=== PATIENT | female | born 1960 | race Two or more races ===

== ENCOUNTER 2020-01-08 17:02 | Outpatient (REF) | payer OTHER, SELFPAY | END 2020-01-08 17:03 | disposition home or self-care (01) | LOC: HO.LAB 17:02 | PROVIDERS: Visit Provider Internal Medicine | DX: Z20.828 Contact with and (suspected) exposure to other viral communicable diseases (principal) | CPT/HCPCS: C9803; U0003 ==

== ENCOUNTER 2020-01-17 14:04 | Outpatient (REF) | payer OTHER, SELFPAY ==
--- NOTE | 2020-01-17 | MM_ITS ---
EXAMINATION: MM SCREENING DIGITAL BREAST TOMOSYNTHESIS, BILATERAL CLINICAL INFORMATION: Screening. Asymptomatic. The lifetime risk of breast cancer based on the Tyrer-Cuzick Model is 6%. COMPARISON: Mammography: 06/19/2018, 06/12/2017, 05/10/2016 TECHNIQUE: Digital breast tomosynthesis is performed in both the craniocaudal and mediolateral oblique views along with computer-aided detection (CAD). Synthesized 2D images are generated from the tomosynthesis. FINDINGS: There are scattered areas of fibroglandular density (ACR BI-RADS breast composition Category b). Breast tissue composition borders on predominantly fatty.There is no interval mass or architectural abnormality or developing density. No abnormal calcifications. The axilla and skin contours are unremarkable. MM/MM tomosynthesis screening BI IMPRESSION: No mammographic evidence of malignancy. ASSESSMENT: BI-RADS 1: Negative RECOMMENDATION: Routine annual mammography screening. This patient's information was entered into a reminder system with a target due date for their next mammogram.
== END 2020-01-17 14:05 | disposition home or self-care (01) ==
LOC: HO.MAMMO 14:04
PROVIDERS: PCP Internal Medicine; Visit Provider Internal Medicine
DX: Z12.31 Encounter for screening mammogram for malignant neoplasm of breast (principal)
CPT/HCPCS: 77063; 77067

== ENCOUNTER → 2020-01-24 13:27 | Outpatient (BNVA) | payer OTHER, SELFPAY | PROVIDERS: PCP Internal Medicine; Visit Provider Nurse Practitioner Family | DX: Z76.89 Persons encountering health services in other specified circumstances (principal) ==

== ENCOUNTER 2020-02-14 08:30 | Outpatient (REF) | payer OTHER, SELFPAY ==
[2020-02-14 09:15] LABS: Hematocrit 39.2 % (37-47); Hemoglobin 12.2 g/dl (12.0-16.0); Mean Corpuscular HGB Conc 31.1 g/dl (31.0-35.0); Mean Corpuscular Hemoglobin 25.2 pg (27.0-33.0); Mean Corpuscular Volume 80.8 fL (80-98); Mean Platelet Volume 9.6 fL (9.4-12.3); Platelet Count 414 X10*3/uL (160-400); Red Blood Count 4.85 X10*6/uL (4.20-5.50); Red Cell Distribution Width 14.1 % (11.0-16.0); White Blood Count 7.8 X10*3/uL (4.8-10.8)
[2020-02-14 09:33] LABS: Estimated Average Glucose 237 mg/dL; Hemoglobin A1c % 9.9 %
[2020-02-14 09:43] LABS: Alanine Aminotransferase 42 U/L (0-31); Albumin Level 4.3 g/dL (3.5-5.0); Alkaline Phosphatase 70 U/L (39-117); Anion Gap 13 (12-20); Aspartate Amino Transferase 31 U/L (5-31); Bilirubin Total 0.4 mg/dL (0.0-1.0); Blood Urea Nitrogen 11 mg/dL (9-16); Carbon Dioxide 31 mmol/L (22-29); Chloride 101 mmol/L (96-108); Estimated Glomerular Filt Rate > 60; Glucose Random 200 mg/dL (60-115); Potassium 4.9 mmol/l (3.3-5.1); Sodium 140 mmol/L (135-145); Total Protein 7.7 g/dL (6.5-8.0)
== END 2020-02-14 08:31 | disposition home or self-care (01) ==
LOC: HO.LAB 08:30
PROVIDERS: PCP Internal Medicine; Visit Provider Nurse Practitioner Family
DX: E11.9 Type 2 diabetes mellitus without complications (principal); Z12.11 Encounter for screening for malignant neoplasm of colon
CPT/HCPCS: 36415; 80053; 83036; 85027

== ENCOUNTER 2020-03-24 06:23 | Day surgery (SDC) | payer OTHER, SELFPAY ==
[2020-03-18 10:34] VITALS: BMI 38.7
--- NOTE | 2020-03-20 09:26 | P.CONAN_ITS ---
Documented by User: Rosa Encinas 03/20/20 09:27 HPI - Anesthesia Eval Consult details Narrative: 59yo F for Colonoscopy PMFSH Past Medical History Medical History Diabetes mellitus GERD (gastroesophageal reflux disease) HTN (hypertension) Hyperlipidemia Migraine KELVIN on CPAP Family History Family History Father No problems noted. Mother No problems noted. Surgical History Surgical History History of History of colonoscopy Hx of endoscopy Social History Social History Alcohol intake: never Smoking Status: Never smoker Use of substances other than those prescribed or required for medical reasons: No Have you been hit, kicked, punched, or otherwise hurt by someone within the past year? If so, by whom?: No Advance Directives: No Advance Directives Information Provided: No Advance Directives on File: No Recently lost weight without trying: No Meds Allergies Allergy/AdvReac Type Severity Reaction Status Date / Time ibuprofen [IBUPROFEN] AdvReac Unknown Gastrointestinal Unverified 03/18/20 10:16 Upset Home Medications Medication Instructions Recorded Confirmed Last Taken Type aspirin 81 mg tablet,delayed 81 mg PO DAILY 01/24/20 03/18/20 Unknown History release canagliflozin 300 mg tablet 300 mg PO QAM 01/24/20 03/18/20 Unknown History glipizide 10 mg tablet 10 mg PO BID 01/24/20 03/18/20 Unknown History lisinopril 10 mg tablet 10 mg PO DAILY 01/24/20 03/18/20 Unknown History meloxicam 15 mg tablet 15 mg PO DAILY 01/24/20 03/18/20 Unknown History metformin 1,000 mg tablet 1,000 mg PO BID 01/24/20 03/18/20 Unknown History mirtazapine 15 mg tablet 15 mg PO BEDTIME 01/24/20 03/18/20 Unknown History omeprazole 40 mg capsule,delayed 40 mg PO DAILY 01/24/20 03/18/20 Unknown History release simvastatin 20 mg tablet 20 mg PO DAILY 01/24/20 03/18/20 Unknown History Exam Exam Date and Time: March 20, 2020 0926 Height,Weight and Vital Signs: Height 5 ft Weight 89.811 kg Assessment and Plan Assessment Anesthesia Assessment: Chart Reviewed Documented by User: Shila Stephens 03/24/20 07:27 [facility] Past Medical History Medical History Diabetes mellitus GERD (gastroesophageal reflux disease) HTN (hypertension) Hyperlipidemia Migraine KELVIN on CPAP Family History Family History Father No problems noted. Mother No problems noted. Family history of problems with anesthesia: No Surgical History Surgical History History of History of colonoscopy Hx of endoscopy History of Problems with Anesthesia: No Social History Social History Alcohol intake: never Smoking Status: Never smoker Use of substances other than those prescribed or required for medical reasons: No Have you been hit, kicked, punched, or otherwise hurt by someone within the past year? If so, by whom?: No Advance Directives: No Advance Directives Information Provided: No Advance Directives on File: No Recently lost weight without trying: No Meds Allergies Allergy/AdvReac Type Severity Reaction Status Date / Time ibuprofen [IBUPROFEN] AdvReac Unknown Gastrointestinal Unverified 03/18/20 10:16 Upset Home Medications Medication Instructions Recorded Confirmed Last Taken Type aspirin 81 mg tablet,delayed 81 mg PO DAILY 01/24/20 03/18/20 Unknown History release canagliflozin 300 mg tablet 300 mg PO QAM 01/24/20 03/18/20 Unknown History glipizide 10 mg tablet 10 mg PO BID 01/24/20 03/18/20 Unknown History lisinopril 10 mg tablet 10 mg PO DAILY 01/24/20 03/18/20 Unknown History meloxicam 15 mg tablet 15 mg PO DAILY 01/24/20 03/18/20 Unknown History metformin 1,000 mg tablet 1,000 mg PO BID 01/24/20 03/18/20 Unknown History mirtazapine 15 mg tablet 15 mg PO BEDTIME 01/24/20 03/18/20 Unknown History omeprazole 40 mg capsule,delayed 40 mg PO DAILY 01/24/20 03/18/20 Unknown History release simvastatin 20 mg tablet 20 mg PO DAILY 01/24/20 03/18/20 Unknown History Exam Height,Weight and Vital Signs: Vital Signs Temp Pulse Resp BP Pulse Ox 03/24/20 07:15 97.0 F 90 18 127/70 97 03/24/20 06:58 98 F 90 18 127/77 97 Pertinent Lab Results Pertinent Lab Results: Lab Results 03/24/20 Range/Units 07:01 POC Glucose 241 H (60-115) mg/dL Airway Mallampati Class: III TM Dist: >3cm Neck ROM: Full Loose/Missing/Broken Teeth: No Heart: RRR Lungs: CTAB Assessment and Plan Assessment Anesthesia Assessment: Anesthesia Plan Discussed and Chart Reviewed Final Anesthetic Review NPO: Yes ASA Class: III Final Preanesthetic Review: No Changes in Pt Med Stat, Meds/Allgs Chart Reviewed, Consent Obtained/Reviewed and Anes Risks/Benef Reviewed Patient Risk: Intermediate Procedure Risk: Low Assessment/Block/Sedation in SS: Assess/Block/Sedation-SS Anesthetic Plan Anesthetic Plan: MAC: Disposition: Standard PACU
[2020-03-24 06:58] VITALS: BP 127/77; PULSE 90; RESP 18; TEMP 36.6; O2SAT 97; BMI 16.6
[2020-03-24 07:05] LABS: Glucose, Whole Blood 241 mg/dL (60-115)
[2020-03-24 07:15] VITALS: BP 127/70; PULSE 90; RESP 18; TEMP 36.1; O2SAT 97
--- NOTE | 2020-03-24 07:25 | P.HPSUR_ITS ---
Pre-Procedural Eval Section B Chief Complaint: screening Details of Present Illness: Colon cancer screening--Last 10 yr ago No clinical changes since preprocedure visit January, Relevant Family History (Specify if Yes): No Relevant Social History: None Present Medications: see Short Stay Collaborative assessment Medical History: Significant History (KELVIN--uses Cpap for 4 days/ week for 4 hours--prob dryness; Diabetes,obesity) Allergies: Allergies Allergy/AdvReac Type Severity Reaction Status Date / Time ibuprofen [IBUPROFEN] AdvReac Unknown Gastrointestinal Unverified 03/18/20 10:16 Upset Review of Systems Sugical H&P ROS: Negative: Cardiovascular and Yes, Specify: Constitution (Weight 198), Respiratory (kelvin), Gastrointestinal (subxiphoid-chronic ) and Endocrine (diabetes) Exam Surgical H&P Exam: Normal: HEENT, Normal: Heart, Normal: Extremities and Normal: Abdomen Plan Diagnosis/Plan: Unchanged I have reviewed the history and physical and performed a pertinent physical examination on my patient. No changes have occurred unless specified. YES
[2020-03-24] MEDS: Lactated Ringers 1,000 ML 100 ML IVCONT (07:29)
[2020-03-24 07:53] VITALS: BMI 38.7
[2020-03-24 08:23] VITALS: BP 107/71; PULSE 83; RESP 16; TEMP 36.3; O2SAT 100
--- NOTE | 2020-03-24 08:25 | PM.OP ---
Brief Operative Note Date of Service: 03/24/20 Pre-op diagnosis: COLON CANCER SCREENING-NHR Post-op diagnosis: other (DIVERTICULOSIS) Procedure: COLONOSCOPY Implants: NONE Surgeon: Narcisa Paul MD Anesthesia: MAC (Cruzito GARCIA CRNA) Estimated blood loss (mL): 0 Pathology: none sent Condition: stable Disposition: PACU
[2020-03-24 08:38] VITALS: BP 138/89; PULSE 75; RESP 16; TEMP 36.2; O2SAT 99
--- NOTE | 2020-03-24 12:18 | W.PM.OPN ---
Operative Note Operative Note Date of Service: 03/24/20 Narrative: Pre-op diagnosis: COLON CANCER SCREENING-NHR Post-op diagnosis: other (DIVERTICULOSIS) Procedure: COLONOSCOPY Implants: NONE Surgeon: Narcisa Paul MD Anesthesia: MAC (Cruzito MURRAY, MELANIE) Estimated blood loss (mL): 0 FINDINGS: DORIS: Sphincter tone is adequate Scope introduced without difficulty navigated through sigmoid with scattered Diverticulosis noted. Scope continued to be advanced through transverse, ascending colon into the cecum. Appendiceal orifice was seen. Ileocecal valve was seen. No mucosal abnormalities noted on way in. PREP--was good Slow withdrawal of scope. Good rotational views--no mucosal lesions seen. Anorectal verge was clear. Patient tolerated procedure well. Pathology: none sent Condition: stable Disposition: PACU PLAN: CURRENT RECOMMENDATIONS FOR REPEAT ASYMPTOMATIC SCREENING CONTINUES @ 10 YEARS.
== END 2020-03-24 08:50 | disposition home or self-care (01) ==
PROVIDERS: PCP Internal Medicine; Visit Provider Internal Medicine Gastroenterology
PROC: 0DJD8ZZ Inspection of Lower Intestinal Tract, Via Natural or Artificial Opening Endoscopic (ICD-10-PCS; CPT 45378; principal; 2020-03-24 07:30)
DX: Z12.11 Encounter for screening for malignant neoplasm of colon (principal); K57.30 Diverticulosis of large intestine without perforation or abscess without bleeding; E11.9 Type 2 diabetes mellitus without complications; I10 Essential (primary) hypertension; Z79.82 Long term (current) use of aspirin; Z79.84 Long term (current) use of oral hypoglycemic drugs; Z79.899 Other long term (current) drug therapy
CPT/HCPCS: 45378; 82947

== ENCOUNTER 2020-04-06 11:04 | Outpatient (REF) | payer MEDICAID, SELFPAY | END 2020-04-06 11:05 | disposition home or self-care (01) | LOC: HO.SCI 11:04 | DX: Z13.89 Encounter for screening for other disorder (principal) ==

== ENCOUNTER → 2020-04-15 13:22 | Outpatient (BNVA) | payer MEDICAID, SELFPAY | PROVIDERS: PCP Internal Medicine; Visit Provider Nurse Practitioner Family ==

== ENCOUNTER 2021-04-29 11:43 | Outpatient (REF) | payer MEDICAID, OTHER, SELFPAY ==
--- NOTE | ~2021-04-29 | MM_ITS ---
EXAMINATION: MM SCREENING DIGITAL BREAST TOMOSYNTHESIS, BILATERAL CLINICAL INFORMATION: Screening. Asymptomatic. The lifetime risk of breast cancer based on the Tyrer-Cuzick Model is 6.2%. COMPARISON: Mammography: January 17, 2020 and studies dating back to May 06, 2015 TECHNIQUE: Digital breast tomosynthesis is performed in both the craniocaudal and mediolateral oblique views along with computer-aided detection (CAD). Synthesized 2D images are generated from the tomosynthesis. FINDINGS: There are scattered areas of fibroglandular density (ACR BI-RADS breast composition Category b). There are no significant masses, abnormal calcifications, or other abnormalities. MM/MM tomosynthesis screening BI IMPRESSION: There are no significant changes from prior study. ASSESSMENT: BI-RADS 1: Negative RECOMMENDATION: Routine annual mammography screening. This patient's information was entered into a reminder system with a target due date for their next mammogram.
== END 2021-04-29 11:44 | disposition home or self-care (01) ==
LOC: HO.MAMMO 11:43
PROVIDERS: PCP Internal Medicine; Visit Provider Internal Medicine
DX: Z12.31 Encounter for screening mammogram for malignant neoplasm of breast (principal)
CPT/HCPCS: 77063; 77067

== ENCOUNTER 2021-06-16 19:24 | Outpatient (REF) | payer MEDICAID, OTHER, SELFPAY ==
--- NOTE | ~2021-06-16 | MR_ITS ---
EXAMINATION: MR LUMBAR SPINE WITHOUT CONTRAST CLINICAL INFORMATION: 61-year-old with lumbago and left sciatica. COMPARISON: None TECHNIQUE: MRI of the lumbar spine was obtained using routine sequences without contrast. FINDINGS: Coronal Alignment: Mild lumbar levocurvature noted. Sagittal Alignment: Normal. Lumbosacral Junction: Normal. 5 [id number] lumbar-type vertebral bodies. Vertebral Bodies: Normal height. Disc Spaces and Endplates: Intervertebral disc space heights are well maintained throughout the lumbar spine. Disc desiccation is noted primarily between L3-L4 and L5-S1 inclusive with minor anterolateral endplate spurring at these levels. There is mild anterior marginal spondylosis at L1-L2 and T12-L1. Endplates appear intact. Spinal Canal: No abnormal developmental findings. Bone Marrow: Mild probable reactive bone marrow edema in the left L4 and L5 pedicles likely secondary to left-sided L5-S1 facet arthropathy. Otherwise, minimal type I marrow signal change along the anterosuperior corner of L1. There is a 1.7 cm faint ovoid focus of subtle T1 hypointensity on the left side of the L2 vertebral body which is only minimally hyperintense on STIR imaging. Statistically, this most likely represents a lipid-poor hemangioma but other etiologies cannot be excluded. Bone marrow signal intensity is otherwise unremarkable. Conus Medullaris: Terminates at L2. Morphology and signal is normal. Intradural Nerve Roots: Within normal limits. SPINAL LEVELS: L5-S1: Mild disc bulging is noted with slight flattening of the ventral dural sac, with ligamentum flavum thickening, moderate right and severe left-sided facet arthropathy with a left-sided facet joint effusion and active inflammatory changes at the left facet joint. There is moderate left-sided neural foraminal stenosis with facet spurring abutting the exiting left L5 nerve root. No significant central spinal canal stenosis. There is mild left and [id number] right lateral recess stenosis with slight encroachment on the traversing right S1 nerve root. L4-L5: Mild posterolateral/paravertebral disc protrusion bilaterally with mild ligamentum flavum thickening and facet arthropathy with no significant canal or neural foraminal stenosis. L3-L4: No disc bulge or herniation. Mild bilateral facet arthrosis without significant canal or neural foraminal stenosis. L2-L3: Normal disc contour. Minor facet arthrosis bilaterally. No canal or neural foraminal stenosis. L1-L2: Normal disc contour. No significant facet arthrosis, canal or neural foraminal stenosis. Paraspinal/Retroperitoneal: The paravertebral soft tissues are unremarkable. A 2.2 cm simple-appearing cyst lower pole of left kidney. A 1.3 cm simple-appearing exophytic cortical cyst lateral cortex interpolar segment of left kidney. A 1.2 cm T1 hyperintense structure arising exophytically from the lateral cortex of the upper pole of the left kidney which is not imaged on the T2-weighted images and may reflect a hemorrhagic cyst. Suggest renal ultrasound followup. MR/MR lumbar spine wo con IMPRESSION: 1. Multilevel discogenic degenerative changes and minor degrees of spondylosis, as described above. 2. Bilateral facet arthropathy at L5-S1 with disc bulging at this level and probable active inflammatory changes at the left facet joint with adjacent reactive marrow edema. [id number] lateral recess stenosis at this level, right more than left, with mild encroachment on the traversing right S1 nerve root and moderate left-sided neural foraminal stenosis, with facet spurring abutting the exiting left L5 nerve root. 3. Mild posterolateral/paravertebral disc protrusions bilaterally at L4-L5 without canal or neural foraminal stenosis. 4. Possible hemorrhagic cyst upper pole of left kidney. Other simple-appearing cysts noted in the left kidney. Suggest followup renal ultrasound.
== END 2021-06-16 19:25 | disposition home or self-care (01) ==
LOC: HO.MRI 19:24
PROVIDERS: Visit Provider Internal Medicine
DX: M54.42 Lumbago with sciatica, left side (principal); N28.1 Cyst of kidney, acquired
CPT/HCPCS: 72148

== ENCOUNTER 2022-05-05 11:36 | Outpatient (REF) | payer OTHER, SELFPAY ==
--- NOTE | ~2022-05-05 | MM_ITS ---
EXAMINATION: MM SCREENING DIGITAL BREAST TOMOSYNTHESIS, BILATERAL CLINICAL INFORMATION: Screening. Asymptomatic. The lifetime risk of breast cancer based on the Tyrer-Cuzick Model is 6.2%. COMPARISON: Mammography: April 29, 2021 and studies dating back to May 06, 2015 TECHNIQUE: Digital breast tomosynthesis is performed in both the craniocaudal and mediolateral oblique views along with computer-aided detection (CAD). Synthesized 2D images are generated from the tomosynthesis. FINDINGS: There are scattered areas of fibroglandular density (ACR BI-RADS breast composition Category b). There are no significant masses, abnormal calcifications, or other abnormalities. MM/MM tomosynthesis screening BI IMPRESSION: No significant changes from prior exam. ASSESSMENT: BI-RADS 1: Negative RECOMMENDATION: Routine annual mammography screening. This patient's information was entered into a reminder system with a target due date for their next mammogram.
== END 2022-05-05 11:37 | disposition home or self-care (01) ==
LOC: HO.MAMMO 11:36
PROVIDERS: Visit Provider Internal Medicine
DX: Z12.31 Encounter for screening mammogram for malignant neoplasm of breast (principal)
CPT/HCPCS: 77063; 77067

== ENCOUNTER 2022-10-27 15:15 | Outpatient (REF) | payer MEDICAID, SELFPAY | END 2022-10-27 15:16 | disposition home or self-care (01) | LOC: HO.MAMMO 15:15 | PROVIDERS: PCP Internal Medicine; Visit Provider Internal Medicine | DX: Z12.31 Encounter for screening mammogram for malignant neoplasm of breast (principal) | CPT/HCPCS: 77063; 77067 ==

== ENCOUNTER → 2022-10-27 16:00 | Outpatient (BNV) | payer MEDICAID, SELFPAY | PROVIDERS: PCP Internal Medicine; Visit Provider Radiology Diagnostic Radiology | DX: Z12.31 Encounter for screening mammogram for malignant neoplasm of breast (principal) | CPT/HCPCS: 77063; 77067 ==

== ENCOUNTER 2022-12-20 08:34 | Outpatient (REF) | payer MEDICAID, SELFPAY ==
--- NOTE | ~2022-12-20 | US_ITS ---
EXAMINATION: US RETROPERITONEAL LIMITED (RENAL ONLY) CLINICAL INFORMATION: Left renal cyst. COMPARISON: MRI lumbar spine 06/16/2021. X-ray abdomen KUB 01/15/2018. TECHNIQUE: Real-time imaging of the kidneys. FINDINGS: RIGHT KIDNEY: 10.8 x 3.7 x 4.1 cm (SAG x AP x TRV). The kidney is normal in size, contour, and echogenicity. Renal cortical thickness is normal. No renal calculi or hydronephrosis. 7 x 4 x 4 mm mid/lower pole exophytic cyst. LEFT KIDNEY: 11.4 x 5.2 x 5.3 cm (SAG x AP x TRV). The kidney is normal in size, contour, and echogenicity. Renal cortical thickness is normal. No renal calculi. Lower pole caliectasis without hydronephrosis. 2.8 x 1.9 x 2.2 cm lower pole cyst with septation. 1.5 x 1.2 x 1.3 cm, 2.0 x 1.4 x 1.4 cm upper pole and 1.3 x 1.1 x 1.4 cm mid pole renal cysts. Incidental note is made of 1.1 x 1.0 x 1.2 cm splenule. US/US renal BI IMPRESSION: Left lower pole caliectasis. Bilateral renal cysts as described.
== END 2022-12-20 08:35 | disposition home or self-care (01) ==
LOC: HO.US 08:34
PROVIDERS: PCP Internal Medicine; Visit Provider Internal Medicine
DX: N28.1 Cyst of kidney, acquired (principal)
CPT/HCPCS: 76775

== ENCOUNTER 2023-02-09 09:21 | Outpatient (REF) | payer MEDICAID, SELFPAY | END 2023-02-09 09:22 | disposition home or self-care (01) | LOC: HO.CHCLDS 09:21 | PROVIDERS: Visit Provider Internal Medicine | DX: E11.65 Type 2 diabetes mellitus with hyperglycemia (principal) | CPT/HCPCS: 36415; 80053; 80061; 83036 ==

== ENCOUNTER 2023-04-17 11:03 | Outpatient (REF) | payer MEDICAID, SELFPAY ==
[2023-04-17 14:53] LABS: Creatinine Urine 41.82 mg/dL; Microalbumin Urine < 5.0 mg/L
== END 2023-04-17 11:04 | disposition home or self-care (01) ==
LOC: CF 11:03
PROVIDERS: Visit Provider Internal Medicine
DX: E11.65 Type 2 diabetes mellitus with hyperglycemia (principal)
CPT/HCPCS: 82570

== ENCOUNTER 2023-10-04 08:11 | Outpatient (REF) | payer MEDICAID, SELFPAY ==
[2023-10-04 14:59] LABS: Estimated Average Glucose 194 mg/dL; Hemoglobin A1c % 8.4 % (<6.0)
[2023-10-04 15:17] LABS: Alanine Aminotransferase 55 U/L (0-31); Albumin Level 4.1 g/dL (3.5-5.0); Alkaline Phosphatase 56 U/L (39-117); Anion Gap 15 (12-20); Aspartate Amino Transferase 39 U/L (5-31); Bilirubin Total 0.4 mg/dL (0.0-1.0); Blood Urea Nitrogen 15 mg/dL (9-16); Calcium 9.9 mg/dL (8.4-10.2); Carbon Dioxide 26 mmol/L (22-29); Chloride 103 mmol/L (96-108); Cholesterol 99 mg/dL (<200); Estimated Glomerular Filt Rate > 60; Glucose Random 104 mg/dL (60-115); HDL Cholesterol 40 mg/dL (>40); LDL Cholesterol Calculated 37 mg/dL (<100); Potassium 4.6 mmol/L (3.3-5.1); Sodium 139 mmol/L (135-145); Total Protein 7.5 g/dL (6.5-8.0); Triglycerides 110 mg/dL (<150)
== END 2023-10-04 08:12 | disposition home or self-care (01) ==
LOC: HO.CHCLDS 08:11
PROVIDERS: Visit Provider Internal Medicine
DX: E11.42 Type 2 diabetes mellitus with diabetic polyneuropathy (principal)
CPT/HCPCS: 36415; 80053; 80061; 83036

== ENCOUNTER 2023-11-02 14:26 | Outpatient (REF) | payer MEDICAID, SELFPAY ==
--- NOTE | ~2023-11-02 | MM_ITS ---
EXAMINATION: MM SCREENING DIGITAL BREAST TOMOSYNTHESIS, BILATERAL CLINICAL INFORMATION: Screening. Asymptomatic. COMPARISON: Mammography: Comparison is made with available priors TECHNIQUE: Digital breast mammography with tomosynthesis is performed in both the craniocaudal and mediolateral oblique views along with computer-aided detection (CAD). FINDINGS: There are scattered areas of fibroglandular density (ACR BI-RADS breast composition Category b). There are no significant masses, abnormal calcifications, or other abnormalities. MM/MM tomosynthesis screening BI IMPRESSION: No mammographic evidence of malignancy. ASSESSMENT: BI-RADS BI-RADS 1 - Negative RECOMMENDATION: Routine annual mammography screening. 1 year F/U This examination should not preclude the clinical evaluation of a suspicious palpable abnormality. This patient's information was entered into a reminder system with a target due date for their next mammogram. Electronically signed by: Holley Harris DO 11/14/2023 05:52 PM EDT
== END 2023-11-02 14:27 | disposition home or self-care (01) ==
LOC: HO.MAMMO 14:26
PROVIDERS: PCP Internal Medicine; Visit Provider Internal Medicine
DX: Z12.31 Encounter for screening mammogram for malignant neoplasm of breast (principal)
CPT/HCPCS: 77063; 77067

== ENCOUNTER → 2023-11-02 15:30 | Outpatient (BNV) | payer MEDICAID, SELFPAY | PROVIDERS: PCP Internal Medicine; Visit Provider Internal Medicine | DX: Z12.31 Encounter for screening mammogram for malignant neoplasm of breast (principal) | CPT/HCPCS: 77063; 77067 ==

== ENCOUNTER 2024-07-15 09:42 | Outpatient (REF) | payer MEDICAID, SELFPAY ==
[2024-07-15 14:24] LABS: MANUAL DIFF FLAG NO
[2024-07-15 14:29] LABS: Basophils Percent Auto 0.4 % (0-2); Eosinophils Absolute Auto 0.2 X10*3/uL (0.0-0.4); Hematocrit 40.4 % (37.0-47.0); Hemoglobin 12.6 g/dl (12.0-16.0); Imm Gran Abs Auto 0.03 X10*3/uL (0.00-0.03); Imm Gran Pct Auto 0.4 % (0.0-0.4); Lymphocytes Absolute Auto 3.3 X10*3/uL (1.2-4.9); Mean Corpuscular HGB Conc 31.2 g/dl (31.0-35.0); Mean Corpuscular Hemoglobin 26.5 pg (27.0-33.0); Mean Corpuscular Volume 85.1 fL (80.0-98.0); Mean Platelet Volume 9.8 fL (9.4-12.3); Monocytes Absolute Auto 0.6 X10*3/uL (0.1-1.2); Monocytes Percent Auto 6.6 % (2-11); Neutrophils Absolute Auto 4.4 x10*3/uL (2.0-8.3); Neutrophils Percent Auto 51.6 % (45-73); Platelet Count 392 X10*3/uL (160-400); Red Blood Count 4.75 X10*6/uL (4.20-5.50); Red Cell Distribution Width 14.3 % (11.0-16.0); White Blood Count 8.5 X10*3/uL (4.8-10.8)
[2024-07-15 14:42] LABS: Estimated Average Glucose 278 mg/dL; Hemoglobin A1c % 11.3 % (<6.0)
[2024-07-15 14:52] LABS: Creatinine Urine 55.82 mg/dL; Microalbumin Urine < 5.0 mg/L
[2024-07-15 15:09] LABS: Alanine Aminotransferase 76 U/L (0-31); Albumin Level 4.4 g/dL (3.5-5.0); Alkaline Phosphatase 75 U/L (39-117); Anion Gap 16 (12-20); Aspartate Amino Transferase 77 U/L (5-31); Bilirubin Total 0.2 mg/dL (0.0-1.0); Blood Urea Nitrogen 13 mg/dL (9-16); Calcium 9.7 mg/dL (8.4-10.2); Carbon Dioxide 26 mmol/L (22-29); Chloride 104 mmol/L (96-108); Cholesterol 116 mg/dL (<200); Estimated Glomerular Filt Rate > 60; Glucose Random 133 mg/dL (60-115); HDL Cholesterol 42 mg/dL (>40); LDL Cholesterol Calculated 52 mg/dL (<100); Potassium 4.5 mmol/L (3.3-5.1); Sodium 141 mmol/L (135-145); Total Protein 7.7 g/dL (6.5-8.0); Triglycerides 111 mg/dL (<150)
== END 2024-07-15 09:43 | disposition home or self-care (01) ==
LOC: HO.CHCLDS 09:42
PROVIDERS: Visit Provider Internal Medicine
DX: E11.42 Type 2 diabetes mellitus with diabetic polyneuropathy (principal)
CPT/HCPCS: 36415; 80053; 80061; 82570; 83036; 85025

== ENCOUNTER 2024-10-30 08:29 | Outpatient (REF) | payer OTHER, SELFPAY ==
--- OUTSIDE RECORDS SUMMARY | 2024-10-30 09:27 | XMS_ITS | Clinical Summary ---
Author Organization [employer] Address [address] [place] [address] Care Team Providers Care Etl Analyst Name Role Phone Leandro Moura MD Primary Care Prov ider Allergies Active Allergy Reactions Criticality Noted Date Comments Lisinopril Cough 10/18/2022 Medications Blood Pressure kit 1 kit in the morning. 1 kit 023 Active TRUEplus Lancets 33G misc 100 Units by Subdermal route 3 times daily. 100 each 11 023 Active ketotifen (Zaditor) 0.025 % ophthalmic solution Administer 1 drop into both eyes 2 times daily. 10 mL 1 023 Active polyethylene glycol, PEG, 3350 (Miralax) 17 g packet MIX 1 PACKET IN 8 OUNCES OF WATER, JUICE,SODA, COFFEE, OR TEA DAILY NEEDED FOR CONSTIPATION 30 packet 3 024 Active acetaminophen (Tylenol 8 Hour) 650 MG ER tablet TAKE ONE TABLET EVERY 8 HOURS NEEDED. DO NOT BREAK, CRUSH, DISSOLVE OR CHEW 30 tablet 1 024 Active metFORMIN (Glucophage) 1000 MG tabletIndications :Type 2 diabetes mellitus with diabetic polyneuropathy, without long-term current use of insulin (CMS/[facility]) Take 1 tablet (1,000 mg) by mouth with breakfast and with evening meal. 180 tablet 3 024 Active baclofen (Lioresal) 10 MG tabletIndications :Chronic bilateral low back pain with bilateral sciatica Take 1 tablet (10 mg) by mouth 3 times daily. 270 tablet 3 024 Active DULoxetine (Cymbalta) [address] capsuleIndication s:Chronic pain syndrome Take 1 capsule (30 mg) by mouth 2 times daily. Do not crush or chew. 180 capsule 1 024 Active hydrOXYzine HCl (Atarax) 25 MG tablet Take 1 tablet (25 mg) by mouth if needed in the morning, at noon, and at bedtime for anxiety. 90 tablet 3 024 Active losartan (Cozaar) 25 MG tablet TAKE ONE TABLET AT NOON 90 tablet 3 024 Active empagliflozin (Jardiance) 25 MG Take 1 tablet (25 mg) by mouth Once per day. 30 tablet 11 024 2024 Active glucose blood (FREESTYLE LITE) test strip 1 each by Other route 3 times daily. 100 each 12 025 Active glipiZIDE (Glucotrol) 10 MG tabletIndications :Type 2 diabetes mellitus with diabetic polyneuropathy, without long-term current use of insulin (CMS/HCC) TAKE ONE TABLET TWICE DAILY BEFORE MEALS 180 tablet 1 025 Active insulin pen needle (B-D UF III MINI PEN NEEDLES) 31G x [address] [facility] USE TO INJECT lantus DAILY 100 each 11 025 Active Blood Glucose Monitoring Suppl (FreeStyle Safford Lite) w/Device kit TEST BLOOD SUGAR THREE TIMES DAILY 1 kit 025 Active gabapentin (Neurontin) 300 MG capsuleIndication s:Neuropathy TAKE ONE CAPSULE THREE TIMES DAILY 90 capsule 1 025 Active cyclobenzaprine (Flexeril) 10 MG tablet TAKE ONE TABLET THREE TIMES DAILY 30 tablet 2 025 Active Continuous Glucose Graduate Assistant Athletic Trainer (FreeStyle Sánchez 2 [place]) deviceIndications :Type 2 diabetes mellitus with diabetic polyneuropathy, without long-term current use of insulin (CMS/HCC) Scan sensor every 8 hours 1 each 025 Active Continuous Glucose Sensor (FreeStyle Sánchez 2 Sensor) miscIndications:T ype 2 diabetes mellitus with diabetic polyneuropathy, without long-term current use of insulin (CMS/HCC) 1 Units every 14 (fourteen) days. 2 each 3 025 Active Continuous Glucose Graduate Assistant Athletic Trainer (FreeStyle Sánchez 3 [place]) deviceIndications :Type 2 diabetes mellitus with diabetic polyneuropathy, without long-term current use of insulin (CMS/HCC) 1 each Once per day. Use as directed for CGM 1 each Active Continuous Glucose Sensor (FreeStyle Sánchez 3 Plus Sensor) miscIndications:T ype 2 diabetes mellitus with diabetic polyneuropathy, without long-term current use of insulin ([facility]) 1 each every 15 days. Apply 1 every 15 days as directed for CGM 2 each Active simvastatin (Zocor) 20 MG tabletIndications :Mixed hyperlipidemia TAKE ONE TABLET EVERY NIGHT AT BEDTIME 90 tablet 1 Active Trulicity 4.5 MG/0.5ML solution auto-injectorIndi cations:Type 2 diabetes mellitus with diabetic polyneuropathy ([facility]) INJECT ONE PEN (=4.5MG) SUBCUTANEOUSLY ONCE A WEEK DIRECTED 2 mL Active amitriptyline (Elavil) 50 MG tablet TAKE ONE TABLET EVERY NIGHT AT BEDTIME 30 tablet 2 Active dextran 70-hypromellose PF (Artificial Tears PF) 0.1-0.3 % ophthalmic solutionIndicatio ns:Meibomian gland disease, unspecified laterality Administer 1 drop into both eyes 4 times daily. 70 each Active Aspirin Adult Low Strength 81 MG EC tabletIndications :Essential (primary) hypertension TAKE EVERY NIGHT AT BEDTIME 90 tablet 1 Active meloxicam (Mobic) 15 MG tablet TAKE ONE TABLET DAILY WITH FOOD NEEDED FOR PAIN Active mirtazapine (Remeron) 15 MG tablet TAKE ONE TABLET EVERY NIGHT AT BEDTIME 022 Active naproxen (Naprosyn) 500 MG tablet Take 500 mg by mouth 2 times daily. Active prazosin (Minipress) 1 MG capsule TAKE ONE CAPSULE EVERY NIGHT AT BEDTIME FOR NIGHTMARES Active cetirizine (ZyrTEC) 10 MG tablet TAKE ONE TABLET EVERY DAY NEEDED ALLERGIES 90 tablet 3 Active omeprazole (PriLOSEC) [address] capsuleIndication s:Gastroesophagea l reflux disease without esophagitis TAKE ONE CAPSULE EVERY MORNING BEFORE BREAKFAST 90 capsule 3 025 Active insulin glargine (Lantus) 100 UNIT/ML pen Inject 30 Units under the skin at bedtime. 9 mL 2 025 2024 Active cetirizine (ZyrTEC) 10 MG tablet TAKE ONE TABLET BY MOUTH EVERY DAY NEEDED FOR ALLERGY 90 tablet 3 024 2024 Discontinued omeprazole (PriLOSEC) [address] capsuleIndication s:Gastroesophagea l reflux disease without esophagitis Take 1 capsule (20 mg) by mouth before breakfast. Do not crush or chew. 90 capsule 3 024 2024 Discontinued insulin glargine (Lantus) 100 UNIT/ML pen Inject 20 Units under the skin at bedtime. 6 mL 2 025 2024 Discontinued Active Problems Problem Noted Date Diagnosed Date Anxiety 07/10/2023 Assessment & Plan (07/10/2023 9:54 AM EDT): Will start on hydroxyzine, no suicidal/homicidal ideas, reviewed relaxation techniques Chronic bilateral low back pain with bilateral s ciatica 10/18/2022 Assessment & Plan (01/19/2024 3:45 PM EST): Will place referral to ortho for evaluation, previous one , er precautions were reviewed. Patient requesting the following DME: [employer]erman [employer] Bedside commode Recliner lift chair Diabetic shoes Shower Chair large Will send rx with dx of DM and chronic back pain with scialtica Assessment & Plan (08/17/2023 1:05 PM EDT): Patient requesting disability, she has not followed with ortho, printed copy and provided her with telephone number for evaluation, Assessment & Plan (02/16/2023 2:15 PM EST): Patient would benefit from Shower Chair, Commode, Walker due to her chronic pain and lower back pain, to improve her activities of daily living and decrease the risk of falling Assessment & Plan (10/18/2022 1:05 PM EDT): Patient lost follow up with ortho, she had a MRI done on 06/2021, will place new ortho referral for evaluation, no neurologic deficit. Vaccination refused by patient 10/18/2022 Muscle spasm 09/14/2022 Assessment & Plan (09/14/2022 9:49 AM EDT): Will prescribe cyclobenzaprine, told To apply ice/heat, rest, stretch, will also refer for PT Screening for colon cancer 09/14/2022 Assessment & Plan (09/14/2022 9:51 AM EDT): Done on 03/2020 good for 10 years Gastroesophageal reflux disease without esophagi tis 06/08/2022 Migraine with aura 06/08/2022 Seasonal allergies 06/08/2022 Chronic pain 06/08/2022 Cellulitis of face 04/22/2022 Assessment & Plan (04/22/2022 4:52 PM EDT): Will cover with augmentin and doxycycline, she never picked up the clindamycin rx'ed in the ED. Short course of percocet and ibuprofen prn. Future Appointments Date Time Provider Department Center 05/05/2022 10:15 AM Leandro Magallon MD [facility] Type 2 diabetes mellitus wit h diabetic polyneuropathy, without long-term current use of insulin 02/04/2022 Assessment & Plan (07/10/2024 1:06 PM EDT): On metformin, jardiacne, glipizide, lantus and trulicity, new labs ordered for guidance, encouraged to keep a low carb/no sugar diet, follow up in 3 months Assessment & Plan (04/11/2024 2:45 PM EST): Stable, no reported episode of hypoglycemia, continue low carb/no sugar diet, follow up in 3 months Assessment & Plan (01/19/2024 3:41 PM EST): Improved, continue low carb/no sugar diet, encouraged exercise, will follow up in 3 months Assessment & Plan (10/02/2023 4:33 PM EDT): Refers fbs usually on the 120's but during the day goes up to 200's, reviewed importance of diet, will increase lantus to 20 units, she will benefit from short acting insulin between meals, she wants to wait for blood test to decide. IN adittion she is on trulicity 4.5mg, metformin/glipizide/invokana Assessment & Plan (04/18/2023 7:00 AM EDT): Refers ahs been ranging from 110-170, no episode of hypoglycemia, continue current medication and diet as reccomeded, follow up in 3 month Assessment & Plan (03/20/2023 9:37 AM EST): Uncontrolled, will add Lantus 10 units, will start on CBG monitoring and will refer to DM educator, follow up in 1 month Will refer for annual eye exam Foot examination done today Assessment & Plan (10/18/2022 1:04 PM EDT): Improving, refers has been adression her diet, no side effects reported with increased dose of trulicity, no reported hypoglycemia. Will follow up in 2 months Assessment & Plan (09/14/2022 9:48 AM EDT): Uncontrolled, will increase trulicity to 4.5, she refers is being compliant with metformin, invokana and glipizide, if not improving will consider startin insulin Assessment & Plan (05/05/2022 11:35 AM EDT): Improving, reinforced low carb/no sugar diet, will order new A1c, follow up in 3 months Assessment & Plan (03/07/2022 9:58 AM EST): Highest 132, lowest in the 100;s, reinforced low carb diet, exercise as tolerated, and continue current medications, will follow up in 3 months, new lab order will be placed Primary hypertension 02/04/2022 Assessment & Plan (07/10/2024 1:10 PM EDT): Controlled, keep low sodium diet and exercise as tolerated, keep bp log, target <130/80, will follow up in 3 months Assessment & Plan (04/11/2024 2:48 PM EST): Controlled, keep low sodium diet and exercise as tolerated, follow up in 3 months, target <130/80 Assessment & Plan (10/02/2023 4:34 PM EDT): Controlled, no changes will be made, keep low sodium diet and exercise as tolerated, bp log, bp target <130/80 Assessment & Plan (08/17/2023 1:03 PM EDT): Controlled, keep bp log, watch for hypo/hypertension, keep low sodium diet, follow up in 4 months Assessment & Plan (07/10/2023 9:51 AM EDT): Controlled, continue same therapy, decrease sodium in diet, exercise as tolerated Assessment & Plan (04/18/2023 7:01 AM EDT): Controlled, no changes will be made, reinforced low sodium diet, follow up in 3 months Assessment & Plan (09/14/2022 9:48 AM EDT): Controlled, no changes will be made, reinforced low sodium diet and exercise as tolerated Assessment & Plan (05/05/2022 11:35 AM EDT): Controlled, reinforced low sodium diet and exercise as tolerated, told to get blood test previously ordered for guidance of therapy Assessment & Plan (03/29/2022 2:10 PM EST): Not at target, will increase lisinopril to 20mg, reinforced low sodium diet and exercise as tolerated, will follow up in 1 month Assessment & Plan (03/07/2022 9:59 AM EST): Controlled, no changes will be made Chronic pain syndrome 02/04/2022 Assessment & Plan (03/07/2022 9:59 AM EST): Will start on cymbalta risk vs benefits, side effects, were discussed Hyperlipidemia associated with type 2 diabetes glenn taylor 05/01/2017 Assessment & Plan (07/10/2024 1:05 PM EDT): On statin therapy, no changes will be made, new labs ordered for guidance of therapy Assessment & Plan (01/23/2023 10:48 AM EST): Simvastatin, new labs will be ordered for guidance target ldl<70 Mood disorder 05/01/2017 Morbid obesity 05/01/2017 Obstructive sleep apnea syndrome 05/01/2017 Assessment & Plan (07/10/2024 1:11 PM EDT): Will refer to sleep medicine for evaluation Type 2 diabetes mellitus 05/01/2017 Assessment & Plan (08/17/2023 1:06 PM EDT): Not at target, will increase trulicity, continue low carb/no sugar diet, follow up in 3 months Assessment & Plan (07/10/2023 9:52 AM EDT): Will increase trulicity to 3mg, continue metformin/invokana/glipizide and lantus 12 units f/up in 6-8 weeks Assessment & Plan (01/23/2023 10:48 AM EST): Patient refer has been ranging from 140-180's, reviewed with her active medications, she soul be taking metformin 100mg bid, glipizide 10mg bid, invokana 300mg, and trulicity 4.5mg, will order new labs for guidance of therapy Hypertensive disorder 05/01/2017 Encounters Date Type Department Care Team Description 10/23/2024 9:00 AM EDT Telemedicine [facility] [address] [facility] [place] [address] Leandro Moura MD Type 2 diabetes mellitus with diabetic polyneuropathy, without long-term current use of insulin ([facility]) (Primary Dx) 10/23/2024 Travel 10/21/2024 Telephone [facility] [address] [facility] [address] Leandro Moura MD chart prep 10/10/2024 Refill [facility] [address] [place] [address] Leandro Moura MD Gastroesophageal reflux disease without esophagitis 10/04/2024 Travel 09/12/2024 Refill [facility] [address] [place] [address] Leandro Moura MD Essential (primary) hypertension 09/11/2024 9:00 AM EDT Office Visit [facility] [address] [place] [address] Yenny Andrade, OD Meibomian gland disease, unspecified laterality (Primary Dx); Pseudophakia of both eyes 09/11/2024 Travel 09/09/2024 Telephone [facility] [address] [place] [address] Yenny Andrade, OD 08/16/2024 Refill [facility] [address] [place] [address] Leandro Moura MD 08/12/2024 Telephone [facility] [address] [place] [address] Leandro Moura MD Nurse Triage 08/09/2024 Refill [facility] [address] [place] [address] Leandro Moura MD Mixed hyperlipidemia; Type 2 diabetes mellitus with diabetic polyneuropathy ([facility]/HCC) from Last 3 Months Immunizations Immunization Administration Dates Next Due Influenza injectable quadriv alent IIV4 with preservative 11/08/2017 Influenza injectable quadriv alent preservative free 10/18/2022,06/10/2021,01/08/2020 Influenza, IIV3, injectable 11/20/2013 Influenza, Split (incl. nancy fied surface antigen) 10/12/2012,10/21/2011 MMR 07/06/2011 Meningococcal MCV4P ACYW-135 08/23/2018 Pneumococcal Conjugate PCV 20 03/20/2023 Pneumococcal Polysaccharide PPSV23 11/12/2009 Tdap 03/20/2023,01/06/2010 Zoster, Recombinant 08/12/2020 Social History Tobacco Use Types Packs/Day Years Used Date Smoking Tobacco: Never Passive Smoke Exposure: Never Smokeless Tobacco: Never Tobacco Cessation:Counseling Given: Not Answered Alcohol Use Standard Drinks/Week Comments Never 0 (1 standard drink = 0.6 oz pur e alcohol) Depression Answer Date Recorded Patient Health Questionnaire-9 Score 4 02/29/2024 Patient Health Questionnaire-9 Score 4 02/29/2024 Last PHQ-9: Questionnaire Data Not on file 0 02/29/2024 Housing Stability Answer Date Recorded What is your housing situation today? I have odalis kilpatrick 02/29/[address] you li ve. Do you have problems with any of the following? None of the above 02/29/2024 Food Insecurity Answer Date Recorded Within the past 12 months, y ou worried that your food would run out before you got money to buy more: Never True 02/29/2024 Within the past 12 months,th e food you bought just didn't last and you didn't have enough money to get more: Never True Transportation Answer Date Recorded In the past 12 months, has l ack of transportation kept you from medical appts, meetings, work or from getting things needed for daily living? No 02/29/2024 Utilities Answer Date Recorded In the past 12 months, has t he electric, gas, oil or water company threatened to shut off services in your home? No 02/29/2024 Depression Answer Date Recorded Patient Health Questionnaire-2 Score 2 02/29/2024 Internet Access Answer Date Recorded Internet Access Q1 Yes 02/29/2024 Internet Access Q2 Not on file 02/29/2024 Comments No Sex and Gender Information Value Date Recorded Sex Assigned at Female 12/06/2021 10:21 AM EDT Legal Sex Female 10:21 AM EDT Gender Identity Choose not to disclose 10:21 AM EDT Sexual Orientation Straight 12/06/2021 10 :21 AM EDT Last Filed Vital Signs Vital Sign Reading Time Taken Comments Blood Pressure 118/72 10/23/2024 9:19 AM EDT Pulse 72 02/29/2024 10:03 AM EST Temperature 36.8 C (98.3 F) 02/29/2024 10:03 AM EST Respiratory Rate 20 02/29/2024 10:03 AM EST Oxygen Saturation 98% 02/29/2024 10:03 AM EST Inhaled Oxygen Concentration - - Weight 87.2 kg (192 lb 3.2 oz) 02/29/2024 10:03 AM EST Height 154 cm (5' 0.63 ) 02/29/2024 10:03 AM EST Body Mass Index 36.76 02/29/2024 10:03 AM EST Plan of Treatment Upcoming Encounters Date Type Department Care Team (Late st Contact Info) Description 12/18/2024 9:30 AM EST Office Visit [facility] [address] [place] [address] Raymond, Yenny, OD [address] [place], [place] [id number] Health Maintenance Due Date Last Done Comments CT Colonography 1960 FIT DNA/Cologuard 1960 FIT 1960 FOBT 1960 Sigmoidoscopy 1960 RSV Patients and Patients Aged 60 years or older (1 - Risk 60-74 years 1-dose series) 2018 Zoster Vaccines (2 of 2) 10/07/2020 08/12/2020 Diabetes: Foot Exam 03/20/2024 03/20/2023, 03/20/2023, 03/20/2023, Additional history exists COVID-19 Vaccine ( - season) 2024 06/23/2020, 04/30/2020 Influenza Vaccine (#1) 2024 3, 06/10/2021, 01/08/2020, Additional history exists Diabetes: Hemoglobin A1C 10/15/2024 06 025, 01/15/2024, 10/04/2023, Additional history exists Alcohol/Substance Use Screening 02/28/2025 02/29/2024 Depression Screening 02/28/2025 02/29/2024, 02/28/19 25 SDOH Screening 02/28/2025 02/29/2024 HPV/Cotest 03/31/2025 03/31/2020 Pap Smear 03/31/2025 03/31/2020 Diabetes: Urine Protein Screening 07/15/2025 07/15/2024, 04/17/2023, 06/07/2021 Lipid Panel 07/15/2025 07/15/2024, 09/07, 02/09/2023, Additional history exists Tobacco Screening 10/01/2025 10/01/2024 Eye Exam 10/17/2025 10/18/2023, 10/07, 10/18/2023, Additional history exists Mammogram 11/01/2025 11/02/2023, 10/08, 04/29/2021, Additional history exists Colonoscopy 04/15/2030 04/15/2020, 04/15/2020 Colorectal Cancer Screening 04/15/2030 DTaP/Tdap/Td Vaccines (3 - Td or Tdap) 03/20/2033 03/20/2023, 01/06/2010 Meningococcal Vaccine Aged Out 08/23/2018 No brianna gael eligible based on patient's age to complete this topic Hepatitis C Screening Completed 05/11/2022, 022 Pneumococcal Vaccine: 50+ Years Completed 03/20/2023, 11/12/2009 HIB Vaccines Aged Out No longer eligi ble based on patient's age to complete this topic HPV Vaccines Aged Out No longer eligi ble based on patient's age to complete this topic Hepatitis A Vaccines Aged Out No long er eligible based on patient's age to complete this topic Hepatitis B Vaccines Aged Out No long er eligible based on patient's age to complete this topic IPV Vaccines Aged Out No longer eligi ble based on patient's age to complete this topic Meningococcal B Vaccine Aged Out No l onger eligible based on patient's age to complete this topic RSV under 20 months Aged Out No longe r eligible based on patient's age to complete this topic Rotavirus Vaccines Aged Out No longer eligible based on patient's age to complete this topic Procedures Procedure Name Priority Date/Time Associated Diagnosis Comments ALBUMIN, RANDOM URINE W/CREATININE Routine 07/15/2024 9:45 AM EDT Type 2 diabetes mellitus with diabetic polyneuropathy, without long-term current use of insulin ([facility]) HEMOGLOBIN A1C Routine 07/15/2024 9:45 AM EDT Type 2 diabetes mellitus with diabetic polyneuropathy, without long-term current use of insulin (CMS/HCC) LIPID PANEL, STANDARD Routine 07/15/2024 9:45 AM EDT Type 2 diabetes mellitus with diabetic polyneuropathy, without long-term current use of insulin (CMS/HCC) BI MAMMOGRAM SCREENING TOMOSYNTHESIS BILATERAL Routine 11/02/2023 2:40 PM EDT HEPATITIS C AB W/REFL TO HCV RNA, QN, PCR Routine 05/11/2022 8:32 AM EDT Type 2 diabetes mellitus with diabetic polyneuropathy, without long-term current use of insulin (CMS/HCC) COLONOSCOPY Routine 04/15/2020 HPV MRNA E6/E7 Routine 03/31/2020 9:39 AM EST THINPREP PAP Routine 03/31/2020 9:39 AM EST from Last 3 Months or Most Recently Relevant to Health Maintenance Results * Albumin, Random Urine W/Creatinine (07/15/2024 9:45 AM EDT) Creatinine, Urine 55.82 mg/dL [facility] Microalbumin Urine <5.0 mg/L [facility] Microalbum Creatinine Ratio Ur TNP <30 ug/mg cr [facility] Comment:Unable to calculate albumin/creatinine ratio due to lowmicroalbumin or creatinine result. Urine (Urine, Random) 07/15/2024 9:45 AM EDT 07/15/2024 2:06 PM EDT us Leandro Magallon MD LAB URINE ORDERABL ES Final Result [facility] [address] [place] [phone] * (ABNORMAL) Hemoglobin A1c (07/15/2024 9:45 AM EDT) Hemoglobin A1c 11.3(H) <6.0 % [facility] Comment:Hemoglobin A1C Refer ence Range Adults: 4.8 - 6.0 % Non diabetic: < 6.0 % Goal: < 7.0 %Additional Action Suggested: > 8.0 %Note: Hemoglobin A1c results are invalid for patients with abnormal amounts of HbF. Blood transfusions may impact the HbA1c concentration in the patient sample. Estimated Average Glucose 278 mg/dL [facility] Comment:eAG = Estimated ave rage glucose which is %A1C expressed asaverage glucose, using the formula of the X2K-[id number] Glucose study (ADAG), Diabetes Care, Vol.31,#8,Sep. 2007 Blood Venous blood specimen / Unknown 07/15/2024 9:45 AM EDT 07/15/2024 2:17 PM EDT Leandro Magallon MD LAB BLOOD ORDERABL ES Final Result [facility] [address] [place] [phone] * Lipid Panel, Standard (07/15/2024 9:45 AM EDT) Triglycerides 111 <150 mg/dL [facility] Comment:Desirable Triglyceri de: less than 150 mg/dLBorderline High Triglyceride 150-199 mg/dLHigh Triglyceride: 200-499 mg/dLVery High Triglyceride: greater than or equal to 5OO mg/dL Cholesterol 116 <200 mg/dL [facility] Comment:Desirable Cholestero l: less than 200 mg/dLBorderline High Cholesterol: 200-239 mg/dLHigh Cholesterol: greater than 239 mg/dL LDL Cholesterol Calculated 52 <100 mg/dL [facility] Comment:Desirable LDL: less than 100 mg/dLNear Optimal/Above Optimal LDL: 110- 129 mg/dLBorderline High LDL: 130-159 mg/dLHigh LDL: 160-189 mg/dLVery High LDL: greater than or equal to 190 mg/dL HDL Cholesterol 42 >40 mg/dL [facility] Comment:Desirable HDL: great er than 40 mg/dL Note: This HDL assay may give artificially low results in patients with liver disease. Blood Venous blood specimen / Unknown 07/15/2024 9:45 AM EDT 07/15/2024 2:17 PM EDT us Leandro Magallon MD LAB BLOOD ORDERABL ES Final Result [facility] [address] [place] [address] [phone] * BI Mammogram Screening Tomosynthesis Bilateral (11/02/2023 2:40 PM EDT) Anatomical Region Laterality Modality Breast Bilateral Mammography 11/02/2023 2:40 PM EDT Narrative 11/14/2023 5:55 PM EDT [address] [place] [address] Mammography Report Signed Patient: Rita Lema MR#: [id number] : 1960 Acct:[id number] Age/Sex: 63 / F ADM Date: 11/02/23 Loc: HO.MAMMO Attending Dr: Leandro Magallon MD Ordering Physician: Leandro Moura MD Res ults: 1Negative Date of Service: 11/02/23 Follow Up: 1 Year From Orig ina Mammogram Procedure(s): MM tomosynthesis screening BI Accession Number(s): [id number] cc: Leandro Moura MD EXAMINATION: MM SCREENING DIGITAL BREAST TOMOSYNTHESIS, BILATERAL CLINICAL INFORMATION: Screening. Asymptomatic. COMPARISON: Mammography: Comparison is made with available priors TECHNIQUE: Digital breast mammography with tomosynthesis is performed in both the craniocaudal and mediolateral oblique views along with computer-aided detection (CAD). FINDINGS: There are scattered areas of fibroglandular density (ACR BI-RADS breast composition Category b). There are no significant masses, abnormal calcifications, or other abnormalities. MM/MM tomosynthesis screening BI IMPRESSION: No mammographic evidence of malignancy. ASSESSMENT: BI-RADS BI-RADS 1 - Negative RECOMMENDATION: Routine annual mammography screening. 1 year F/U This examination should not preclude the clinical evaluation of a suspicious palpable abnormality. This patient's information was entered into a reminder system with a target due date for their next mammogram. Electronically signed by: Holley Harris DO 11/14/2023 05:52 PM EDT RP Dictated By: Holley Harris DO Signed By: <Electronically signed by Holley Harris DO in OV> 11/14/23 1752 DD/ 1440 TD/TT: 11/02/23 1452 Grinding Wheel Facer: Procedure Note Donotuseinterpreter, Image - 11/14/2023 [facility] [address] [place], [place] [address] Mammography Report Signed Patient: Rita Lema MR#: [id number] : 9Acct:[id number] Age/Sex: 63 / FADM Date: 11/02/23 Loc: HO.MAMMO Attending Dr: Leandro Magallon MD Ordering Physician: Leandro Moura ults: 1Negative Date of Service: 11/02/23Follow Up: 1 Year From [facility] Mammogram Procedure(s): MM tomosynthesis screening BI Accession Number(s): [id number] cc: Leandro Moura MD EXAMINATION: MM SCREENING DIGITAL BREAST TOMOSYNTHESIS, BILATERAL CLINICAL INFORMATION: Screening. Asymptomatic. COMPARISON: Mammography: Comparison is made with available priors TECHNIQUE: Digital breast mammography with tomosynthesis is performed in both the craniocaudal and mediolateral oblique views along with computer-aided detection (CAD). FINDINGS: There are scattered areas of fibroglandular density (ACR BI-RADS breast composition Category b). There are no significant masses, abnormal calcifications, or other abnormalities. MM/MM tomosynthesis screening BI IMPRESSION: No mammographic evidence of malignancy. ASSESSMENT: BI-RADS BI-RADS 1 - Negative RECOMMENDATION: Routine annual mammography screening. 1 year F/U This examination should not preclude the clinical evaluation of a suspicious palpable abnormality. This patient's information was entered into a reminder system with a target due date for their next mammogram. Electronically signed by: Holley Harris DO 11/14/2023 05:52 PM EDT Dictated By: Holley Harris DO Signed By: <Electronically signed by Holley Harris DO in OV> 11/14/23 1752 DD/ 1440 TD/TT: 11/02/23 1452 Grinding Wheel Facer: Leandro Magallon MD IMG BI PROCEDURES Edited Result - Final * Hepatitis C Antibody with Reflex to HCV, RNA, Quantitative, Real-Time PCR (05/11/2022 8:32 AM EDT) Hepatitis C Antibody NON-REACT DANAE NON-REACT DANAE Clari Index 0.02 <1.00 Clari Comment: HCV antibody was non-reactive. There is no laboratory evidence of HCV infection. In most cases, no further action is required. However, if recent HCV exposure is suspected, a test for HCV RNA (test code 00813) is suggested. For additional information please refer to http://education.Just Eat/faq/OID17p5 (This link is being provided for informational/ educational purposes only.) Blood Venous blood specimen / Unknown 05/11/2022 8:32 AM EDT 05/11/2022 8:32 AM EDT Narrative [facility] - 05/13/2022 10:22 PM EDT FASTING:YES FASTING: YES Leandro Magallon MD LAB BLOOD ORDERABL ES Final Result [facility] [address], [place] [address] [facility] [employer] [address] [place] [address] * Colonoscopy (04/15/2020) Anatomical Region Laterality Modality Endoscopy Narrative 04/15/2020 No polyps removed Leandro Magallon MD ENDOSCOPY PROCEDUR E ORDERABLES Final Result * THINPREP PAP (03/31/2020 9:39 AM EST) Clinical Information: None given [facility] COMMENT SEE COMMENT [facility] Comment: EXPLANATORY NOTE: The Pap is a screening test for cervical cancer. It is not a diagnostic test and is subject to false negative and false positive results. It is most reliable when a satisfactory sample, regularly obtained, is submitted with relevant clinical findings and history, and when the Pap result is evaluated along with historic and current clinical information. Title Search Manager : SEE COMMENT [facility] Comment: ED, CT(ASCP) CT screening location: [place] [address] Interpretation/R esult: Negative for intraepithelial lesion or malignancy. [facility] LMP: NONE [facility]IVEN [facility] Prev. BX: NONE [facility]IVEN [facility] Prev. PAP: NONE GIVEN [facility] SOURCE: None given [facility] Statement Of Adequacy: SEE COMMENT [facility] Comment: Satisfactory for evaluation. Endocervical/transformation zone component absent. 03/31/2020 9:39 AM EST [place] LAB PATHOLOGY ORDERABLES Final Result [facility] [address] * HPV mRNA E6/E7 (03/31/2020 9:39 AM EST) HPV nRNA E6/E7 Not Detected Not Detected [facility] Comment: Methodology: Blocker Polishing-Mediated Amplification This assay detects E6/E7 viral messenger RNA (mRNA) from 14 high-risk HPV types (16,18,31,33,35,39,45,51,52,56,58,59,66,68). The analytical performance characteristics of this assay have been determined by [facility]. The modifications have not been cleared or approved by the FDA. This assay has been validated pursuant to the CLIA regulations and is used for clinical purposes. For additional information, please refer to http://education.ASP64.HydroBuilder.com/EEA111f8 (This link if provided for information/ educational purposes only.) 03/31/2020 9:39 AM EST [facility] LAB BLOOD ORDERABLES Fadumo mian Result [facility] [address] from Last 3 Months or Most Recently Relevant to Health Maintenance Insurance FORMERLY [facility] OPT[employer] (HMO D-SNP) [facility] Care Teams Etl Analyst Relationship Specialty Start Date End Date Leandro Moura MD [address] [place] [address] PCP - General Internal Medicine 06/28/19
--- OUTSIDE RECORDS SUMMARY | 2024-10-30 09:27 | XMS_ITS | Encounter Summary ---
Author Organization [employer] Address [address] [place] [address] Care Team Providers Care Hearing Aid Technician Name Role Phone Leandro Moura MD Primary Care Prov ider Encounter Details Date Type Department Care Team (Late st Contact Info) Description 07/17/2023 Telephone [facility] MEDICINE [address] [place] [address] Leandro Moura MD [address] [place] [address] Social History Tobacco Use Types Packs/Day Years Used Date Smoking Tobacco: Never Passive Smoke Exposure: Never Smokeless Tobacco: Never Alcohol Use Standard Drinks/Week Comments Never 0 (1 standard drink = 0.6 oz pur e alcohol) Depression Answer Date Recorded Patient Health Questionnaire-9 Score 17 03/20/2023 Patient Health Questionnaire-9 Score 17 03/20/2023 Last PHQ-9: Questionnaire Data Not on file 0 03/20/2023 Housing Stability Answer Date Recorded What is your housing situation today? I have odalis kilpatrick 11/30/[address] you li ve. Do you have problems with any of the following? None of the above 11/30/2022 Food Insecurity Answer Date Recorded Within the past 12 months, y ou worried that your food would run out before you got money to buy more: Never True 11/30/2022 Within the past 12 months,th e food you bought just didn't last and you didn't have enough money to get more: Never True Transportation Answer Date Recorded In the past 12 months, has l ack of transportation kept you from medical appts, meetings, work or from getting things needed for daily living? No 11/30/2022 Utilities Answer Date Recorded In the past 12 months, has t he electric, gas, oil or water company threatened to shut off services in your home? No 11/30/2022 Depression Answer Date Recorded Patient Health Questionnaire-2 Score 4 03/20/2023 Comments No Sex and Gender Information Value Date Recorded Sex Assigned at Female 12/06/2021 10:21 AM EDT Legal Sex Female 10:21 AM EDT Gender Identity Choose not to disclose 10:21 AM EDT Sexual Orientation Straight 12/06/2021 10 :21 AM EDT documented as of this encounter Plan of Treatment Upcoming Encounters Date Type Department Care Team (Late st Contact Info) Description 12/18/2024 9:30 AM EST Office Visit [facility] OPTOMETRY [address] [place] [address] Raymond, Yenny, OD [address] [place] [address] documented as of this encounter Visit Diagnoses Not on filedocumented in this encounter Additional Health Concerns Assessment Noted Time PHQ-9 Depression Total Score: 17 024 8:56 AM EST documented as of this encounter Care Teams Hearing Aid Technician Relationship Specialty Start Date End Date Leandro Moura MD [address] [place] [address] PCP - General Internal Medicine 06/28/19 documented as of this encounter
--- OUTSIDE RECORDS SUMMARY | 2024-10-30 09:27 | XMS_ITS | Clinical Summary ---
Author Organization [facility] ity Address [address] [place] [address] Care Team Providers Care [employer] Crew Boss Name Role Phone Unavailable Primary Care Provider Unavailabl e Social History Tobacco Use Types Packs/Day Years Used Date Smoking Tobacco: Never Assessed Comments Unknown Sex and Gender Information Value Date Recorded Sex Assigned at Not on file Legal Sex Female 8:53 PM EST Gender Identity Not on file Sexual Orientation Not on file Plan of Treatment Health Maintenance Due Date Last Done Comments Breast Cancer Screening 1960 DTaP,Tdap,and Td Vaccines (1 - Tdap) 1977 Pneumococcal Vaccine: 50+ Ye ars (1 of 1 - PCV) 2008 Zoster Vaccines (1 of 2) 2008 Colorectal Cancer Screening: Colonoscopy 03/03/2023 Hepatitis C Screening 03/03/2023 Osteoporosis Screening (Bone Density Screening) 03/03/2023 Social Influencers of Health Screening 03/03/2023 Falls Risk Assessment 06/15/2023 Depression Screening 02/07/2024 COVID-19 Vaccine ( - 2023-2 5 season) 2024 Influenza Vaccine (#1) 2024 RSV Immunization Adult Patie nts (1 - 1-dose 75+ series) 2033 HIB Vaccines Aged Out No longer eligi [...] on patient's age to complete this topic MMR Vaccines Aged Out No longer eligi ble based on patient's age to complete this topic Meningococcal ACWY Vaccine Aged Out N o longer eligible based on patient's age to complete this topic Meningococcal B Vaccine Aged Out No l onger eligible based on patient's age to complete this topic RSV Immunization Patients Un vijaya 20 months Aged Out No longer eligible b ased on patient's age to complete this topic Varicella Vaccines Aged Out No longer eligible based on patient's age to complete this topic
--- OUTSIDE RECORDS SUMMARY | 2024-10-30 09:27 | XMS_ITS | Encounter Summary ---
Author Organization [employer] Address [address] [facility] 7t [place] [address] Care Team Providers Care Night Cleaner Name Role Phone Leandro Moura MD Primary Care Prov ider Encounter Details Date Type Department Care Team (Late Contact Info) Description 09/20/2022 Orders Only [facility] CHC MED & PEDS [address] [place], [place] [phone] Rhiannon He LPN Social History Tobacco Use Types Packs/Day Years Used Date Smoking Tobacco: Never Passive Smoke Exposure: Never Smokeless Tobacco: Never Alcohol Use Standard Drinks/Week Comments Never 0 (1 standard drink = 0.6 oz pur e alcohol) Depression Answer Date Recorded Patient Health Questionnaire-9 Score 27 05/05/2022 Depression Answer Date Recorded Patient Health Questionnaire-2 Score 6 05/05/2022 Comments Unknown Sex and Gender Information Value [...] Description 12/18/2024 9:30 AM EST Office Visit [facility] OPTOMETRY [address] [place], [place] [phone] Yenny Andrade, OD [address] [place] [address] documented as of this encounter Visit Diagnoses Not on filedocumented in this encounter Additional Health Concerns Assessment Noted Time PHQ-9 Depression Total Score: 27 023 9:58 AM EDT documented as of this encounter Care Teams Night Cleaner Relationship Specialty Start Date End Date Leandro Moura MD [address] [place] [address] PCP - General Internal Medicine 06/28/19 documented as of this encounter
--- OUTSIDE RECORDS SUMMARY | 2024-10-30 09:27 | XMS_ITS | Encounter Summary ---
Author Organization [employer] Address [address] [facility] 7t [place] [address] Care Team Providers Care Table Worker Name Role Phone Leandro Moura MD Primary Care Prov ider Reason for Visit * Reason Onset Date Comments [facility] 07/18/2023 Encounter Details Date Type Department Care Team ([facility] st Contact Info) Description 07/18/2023 Telephone [facility] MEDICINE [address] [place] [address] Leandro Moura MD [address] [place] [address] [facility] Social History Tobacco Use Types Packs/Day Years [...] AM EDT documented as of this encounter Miscellaneous Notes * Telephone Encounter - Lise Hernandez - 07/18/2023 11:01 AM EDT Tc from pt requesting uber for appt today, pt at daughter address; [address] [place] [address] Phone confirmed documented in this encounter Plan of Treatment Upcoming Encounters Date Type Department Care Team (Late st Contact Info) Description 12/18/2024 9:30 AM EST Office Visit [facility] OPTOMETRY [address] [place] [address] Raymond, Yenny, OD [address] [facility] [place] [address] documented as of this encounter Visit Diagnoses Not on filedocumented in this encounter Additional Health Concerns Assessment Noted Time PHQ-9 Depression Total Score: 17 024 8:56 AM EST documented as of this encounter Care Teams Table Worker Relationship Specialty Start Date End Date Leandro Moura MD [address] [place] [address] PCP - General Internal Medicine 06/28/19 documented as of this encounter
--- OUTSIDE RECORDS SUMMARY | 2024-10-30 09:27 | XMS_ITS | Encounter Summary ---
Author Organization [facility] Address [address] [facility] [address] [place] [address] Encounters * CPT with Elvis Obregon at [employer] on 2024-08-12 Reports having elevated BS x 1 month. Reports fasting BS today was 285mg/dL. Reports drinking coffee with milk and now 310mg/dL. Reports having dry mouth and increased urination. No LALA sx. No vomiting. Pt unable to come into our [facility]. Agrees to [facility] referral for evaluation. Reviewed home care advise, ER precautions and reasons to call back. Confirmed demographics and allergies. { reasonForRequest : urinary symptoms, elevated blood sugars , patientRepor ts : , denies :[], chiefComplaints : Urinary Symptoms, Diabetes Related , pmh : Diabetes Mellitus Type 2, Hypertension, Gastroesophageal Reflux Disease (GERD), Migraine, Sleep Apnea, Anxiety Disorder , allergies : Lismario alberto cook , otherAllergies :null, painAssessment : , visitOutco me : , additionalComments : HPI reviewed } Dispatched to the call address for the female with elevated blood sugars. Pt states for the last couple of weeks she has had blood sugars in the high 200s to mid 300s. She states normally her sugar is in the 120s. She advises she has not changed her diet and avoids rice/bread/pasta and has been eating salads, fruits (oranges, apples and watermelon) and beans. She has not yet spoken to her doctor about this issue. She endorses a 30lb weight increase over the past year. She is not sure when her last A1C was checked and does not know what the value was. She denies chest pain, diff breathing/sob,fevers, n/v/d, cough, abd pain, dizziness or any other symptoms at this time. She has been drinkingplenty of water. She advises she had coffee with cream only and a yam for breakfast. She is currently not at home and all her medications come in bubble packs and is not certain of her medications/doses but knows she takes 20 units of Lantus at night. Pt was found sitting in chair, CAOx4, airway open and patent, breathing non labored, able to speak in full sentences, -JVD, -HEENT, skin PWD with good turgor, abd soft non tender/distended, pupils PEERL, mucous membranes pink and moist, +CMSx4, -edema/swelling, afebrile, lungs CTA, -CVA tenderness,UA + for ketones and glucose. Diabetic issue. Pt was assessed. Language line used (Pt primarily Brazilian speaking only). [facility] advised UA and BMP. Blood draw via 23g butterfly in right hand, BMP, UA. [facility] consulted with results. Pt advised to increase her Lantus to 22 units, reduce fruit intake and follow up with PCP. Red flags discussed. ALL times are approx. IV_(FLUIDS_AND/OR_MEDICATION), MEDICATION_IM, ORAL_MEDICATION, EKG, POC_BLOODWORK, GLUCOSE Written by Elvis Obregon on 2024-08-12
--- OUTSIDE RECORDS SUMMARY | 2024-10-30 09:27 | XMS_ITS | Encounter Summary ---
Author Organization [employer] Address [address] [facility] 7t [place] [address] Care Team Providers Care Meter Technician Name Role Phone Leandro Moura MD Primary Care Prov ider Reason for Visit * Reason Onset Date Comments Pre OP 2023 Encounter Details Date Type Department Care Team ([facility] st Contact Info) Description 2023 Telephone [facility] CHC MED & PEDS [address] [place] [address] Leandro Moura MD [address] [place] [address] Pre OP Social History Tobacco Use Types Packs/Day Years [...] encounter Miscellaneous Notes * Telephone Encounter - Wing Evan RN - 06/15/2023 10:56 AM EDT Tc to [place], confirmed operation information and scheduled pt with Dr. Braswell for 06/27 at 9:15 am. [place] verbalized understanding and agreement with plan, stated she would call pt about pre-op. * Telephone Encounter - Gabi Joshua - 2023 9:49 AM EDT Date of Surgery: 07/20/23 Surgical procedure being done: cataract surgery right eye Type of anesthesia: max Lab needed: no EKG: no Surgeon's name: Trae rajput Facility name: [facility] Surgeon's office number: [phone] ext [facility] Surgeon's office fax number: [phone] Contact name (person you spoke with): [place] Last office note from surgeon requested: yes documented in this encounter Plan of Treatment Upcoming Encounters Date Type Department Care Team (Late st Contact Info) Description 12/18/2024 9:30 AM EST Office Visit [facility] OPTOMETRY [address] [place], [place] [phone] Raymond, Yenny, OD [address] [place], [place] [phone] documented as of this encounter Visit Diagnoses Not on filedocumented in this encounter Additional Health Concerns Assessment Noted Time PHQ-9 Depression Total Score: 17 024 8:56 AM EST documented as of this encounter Care Teams Meter Technician Relationship Specialty Start Date End Date Leandro Moura MD [address] [place] [address] PCP - General Internal Medicine 06/28/19 documented as of this encounter
--- OUTSIDE RECORDS SUMMARY | 2024-10-30 09:27 | XMS_ITS | Encounter Summary ---
Author Organization [employer] Address [address] [facility] 7t [place] [address] Care Team Providers Care Corporate Tax Manager Name Role Phone Leandro Moura MD Primary Care Prov ider Reason for Visit * Reason Comments Med Refill Encounter Details Date Type Department Care Team ([facility] st Contact Info) Description 10/27/2023 Refill [facility] CHC MED & PEDS [address] [place], [place] [phone] Leandro Moura MD [address] [place] [address] Social History Tobacco Use Types Packs/Day Years [...] Description 12/18/2024 9:30 AM EST Office Visit [facility] OPTOMETRY [address] [place] [address] Raymond, Yenny, OD [address] [place] [address] documented as of this encounter Visit Diagnoses Not on filedocumented in this encounter Additional Health Concerns Assessment Noted Time PHQ-9 Depression Total Score: 17 024 8:56 AM EST documented as of this encounter Care Teams Corporate Tax Manager Relationship Specialty Start Date End Date Leandro Moura MD [address] [place] [address] PCP - General Internal Medicine 06/28/19 documented as of this encounter
--- OUTSIDE RECORDS SUMMARY | 2024-10-30 09:27 | XMS_ITS | Encounter Summary ---
Author Organization [employer] Address [address] [facility] 7t [place] [address] Care Team Providers Care School Psychometrist Name Role Phone Leandro Moura MD Primary Care Prov ider Encounter Details Date Type Department Care Team (Late Contact Info) Description 06/27/[address] [facility] CHC MED & PEDS [address] [place], [place] [phone] Loida Carey LPN Social History Tobacco Use Types Packs/Day [...] Orientation Straight 12/06/2021 10 :21 AM EDT COVID-19 Exposure Response Date Recorded In the last 10 days, have yo u been in contact with someone who was confirmed or suspected to have Coronavirus/COVID-19? No / Unsure 06/28/2022 8:55 AM EDT documented as of this encounter Plan of Treatment Upcoming Encounters Date Type Department Care Team (Late Contact Info) Description 12/18/2024 9:30 AM EST Office [facility] OPTOMETRY [address] [place], [place] [phone] Raymond, Megan, OD [address] [facility] [place] [address] documented as of this encounter Visit Diagnoses Not on filedocumented in this encounter Additional Health Concerns Assessment Noted Time PHQ-9 Depression Total Score: 27 023 9:58 AM EDT documented as of this encounter Care Teams School Psychometrist Relationship Specialty Start Date End Date Leandro Moura MD [address] [place] [address] PCP - General Internal Medicine 06/28/19 documented as of this encounter
--- OUTSIDE RECORDS SUMMARY | 2024-10-30 09:27 | XMS_ITS | Encounter Summary ---
Author Organization [employer] Address [address] [facility] 7t [place] [address] Care Team Providers Care Drafter Electronic Name Role Phone Leandro Moura MD Primary Care Prov ider Reason for Visit * Reason Comments Med Refill Encounter Details Date Type Department Care Team ([facility] st Contact Info) Description 08/18/2023 Refill [facility] CHC MED & PEDS [address] [place], [place] [phone] Leandro Moura MD [address] [place] [address] Mixed hyperlipidemia Social History Tobacco Use Types Packs/Day Years [...] Description 12/18/2024 9:30 AM EST Office Visit [facility] OPTOMETRY [address] [place] [address] Raymond, Yenny, OD [address] [place] [address] documented as of this encounter Visit Diagnoses Diagnosis Mixed hyperlipidemia documented in this encounter Additional Health Concerns Assessment Noted Time PHQ-9 Depression Total Score: 17 024 8:56 AM EST documented as of this encounter Care Teams Drafter Electronic Relationship Specialty Start Date End Date Leandro Moura MD [address] [place] [address] PCP - General Internal Medicine 06/28/19 documented as of this encounter
--- OUTSIDE RECORDS SUMMARY | 2024-10-30 09:27 | XMS_ITS | Continuity of Care Document ---
Author Name Elvis Obregon Address [address] [place] [address] Organization Unknown Address [address] [place] [address] Medications No known medications Problems No known problems
--- OUTSIDE RECORDS SUMMARY | 2024-10-30 09:27 | XMS_ITS | Encounter Summary ---
Author Organization [employer] Address 75 [facility] 7t [place] [address] Care Team Providers Care Compounder Helper Name Role Phone Leandro Moura MD Primary Care Prov ider Reason for Visit * Reason Comments Med Refill Encounter Details Date Type Department Care Team ([facility] st Contact Info) Description 10/30/2023 Refill [facility] MED & PEDS 505 [place], [place] [phone] Leandro Moura MD 505 [place] [address] Social History Tobacco Use Types Packs/Day Years [...] Description 12/18/2024 9:30 AM EST Office Visit [facility] OPTOMETRY [address] [place] [address] Raymond, Yenny, OD [address] [place] [address] documented as of this encounter Visit Diagnoses Not on filedocumented in this encounter Additional Health Concerns Assessment Noted Time PHQ-9 Depression Total Score: 17 024 8:56 AM EST documented as of this encounter Care Teams Compounder Helper Relationship Specialty Start Date End Date Leandro Moura MD 505 [place] [address] PCP - General Internal Medicine 06/28/19 documented as of this encounter
--- OUTSIDE RECORDS SUMMARY | 2024-10-30 09:27 | XMS_ITS | Encounter Summary ---
Author Organization [employer] Address 75 [facility] 7t [place] [address] Care Team Providers Care Career Technical Education Teacher Name Role Phone Leandro Moura MD Primary Care Prov ider Reason for Visit * Reason Onset Date Comments Referral 07/14/2023 Encounter Details Date Type Department Care Team ([facility] st Contact Info) Description 07/14/2023 Telephone [facility] MEDICINE 230 [place] [address] Leandro Moura MD 505 [place] [address] Referral Social History Tobacco Use Types Packs/Day Years [...] encounter Miscellaneous Notes * Telephone Encounter - Kobe Apple - 07/14/2023 3:23 PM EDT Tc from patient calling to request a new referral for PT states was told previous one is documented in this encounter Plan of Treatment Upcoming Encounters Date Type Department Care Team (Late st Contact Info) Description 12/18/2024 9:30 AM EST Office Visit [facility] OPTOMETRY [address] [place] [address] Yenny Andrade, OD 230 [facility] [place] [address] documented as of this encounter Visit Diagnoses Not on filedocumented in this encounter Additional Health Concerns Assessment Noted Time PHQ-9 Depression Total Score: 17 024 8:56 AM EST documented as of this encounter Care Teams Career Technical Education Teacher Relationship Specialty Start Date End Date Leandro Moura MD 505 [place] [address] PCP - General Internal Medicine 06/28/19 documented as of this encounter
--- OUTSIDE RECORDS SUMMARY | 2024-10-30 09:27 | XMS_ITS | Encounter Summary ---
Author Organization [facility] Address [address] [facility] [address] [place] [address] Encounters * CPT with Elvis Obregon at [employer] on 2024-08-15 Spoke to HOLDEN Le from PCP office, due to physicians being out on vacation they cannot get patientin for an in person evaluation- they would appreciate a follow up visit tomorrow, and will reach out to patient to set up a visit for med reconcilliation, { reasonForRequest : follow up needed for pt, elevated blood sugar , patien tReports : , denies :[], chiefComplaints : Abnormal Lab Value, Diabetes Related , pmh : Diabetes Mellitus Type 2, Hypertension, Gastroesophageal Reflux Disease (GERD), Migraine, Sleep Apnea, Anxiety Disorder , allergies :&qu ot;Lisinopril , otherAllergies :null, painAssessment : , vi sitOutcome : , additionalComments : C Remarks\nPat is hyperglycemic- eating fruit/ gaining weight- states 30 lbs in 1 year- needs dietary consult- BS was 319 at our visit I increased her lantus to 22 units qhs up from 20 units- she did not know the doses of her other meds and our visit was not at home. Can you pls ask CP to reach out to pcp re seeing patient jada-further medication adjustment per pcp since I did not know the dose of her other medications I could not adjust properly. If pcp cannot see her this week we should reevaluate/ re peat bmp in 3 days"} Patient alert and oriented seated at table. PCP office requested repeat labs to rule out DKA. Patient complains of intermittent headache, and increased urination in the last week. Patient denies other pain or complaints, denies chest pain, difficulty breathing, dysuria, abnormal BM or decreased appetite. Patient pink warm dry, secondary exam unremarkable, full sentences negative increase work of breathing, abdomen soft nontender extremities unremarkable no edema noted Tests administered as ordered. C advises patient to follow up with PCP in one week and push hydration with non-sugar beverage. Red flags, patient education discussed. All information through medical claims representative on telephone. IV_(FLUIDS_AND/OR_MEDICATION), MEDICATION_IM, POC_BLOODWORK, GLUCOSE Written by Elvis Obregon on 2024-08-15
--- OUTSIDE RECORDS SUMMARY | 2024-10-30 09:27 | XMS_ITS | Encounter Summary ---
Author Organization [employer] Address 75 [facility] 7t [place] [address] Care Team Providers Care Wig Stylist Name Role Phone Leandro Moura MD Primary Care Prov ider Encounter Details Date Type Department Care Team ([facility] Contact Info) Description 09/14/2022 Orders Only [facility] CHC MED & PEDS 505 [place], [place] [phone] Leandro Moura MD 505 [place] [address] Social History Tobacco Use Types Packs/Day Years [...] Description 12/18/2024 9:30 AM EST Office Visit [facility] OPTOMETRY [address] [place], [place] [phone] Raymond, Yneny, OD [address] [place] [address] documented as of this encounter Procedures Procedure Name Priority Date/Time Associated Diagnosis Comments HM COLONOSCOPY Routine 04/15/2020 COLONOSCOPY Routine 04/15/2020 documented in this encounter Results * Hm Colonoscopy (04/15/2020) Colonoscopy Normal Normal Leandro Magallon MD HEALTH MAINTENANCE Final Result * Colonoscopy (04/15/2020) Anatomical Region Laterality Modality Endoscopy Narrative 04/15/2020 No polyps removed us Leandro Magallon MD ENDOSCOPY PROCEDUR E ORDERABLES Final Result documented in this encounter Visit Diagnoses Not on filedocumented in this encounter Additional Health Concerns Assessment Noted Time PHQ-9 Depression Total Score: 27 05/05/ 023 9:58 AM EDT documented as of this encounter Care Teams Wig Stylist Relationship Specialty Start Date End Date Leandro Moura MD [address] [place] [address] PCP - General Internal Medicine 06/28/19 documented as of this encounter
--- OUTSIDE RECORDS SUMMARY | 2024-10-30 09:27 | XMS_ITS | Encounter Summary ---
Author Organization [employer] Address [address] [facility] 7t [place] [address] Care Team Providers Care Incident Engineer Name Role Phone Leandro Moura MD Primary Care Prov ider Encounter Details Date Type Department Care Team (Late st Contact Info) Description 07/22/2024 Telephone [facility] MEDICINE 230 [place] [address] Leandro Moura MD 505 [place] [address] Social History Tobacco Use Types Packs/Day Years [...] Description 12/18/2024 9:30 AM EST Office Visit [facility] OPTOMETRY 267 [place] [address] Raymond, Yenny, OD 230 [place] [address] documented as of this encounter Visit Diagnoses Not on filedocumented in this encounter Additional Health Concerns Assessment Noted Time PHQ-9 Depression Total Score: 4 02/28/19 25 10:04 AM EST documented as of this encounter Care Teams Incident Engineer Relationship Specialty Start Date End Date Leandro Moura MD 505 [place] [address] PCP - General Internal Medicine 06/28/19 documented as of this encounter
--- OUTSIDE RECORDS SUMMARY | 2024-10-30 09:27 | XMS_ITS | Encounter Summary ---
Author Organization [employer] Address [address] [facility] [address] 7t [place] [address] Care Team Providers Care Explosive Ordnance Disposal Technician Name Role Phone Leandro Moura MD Primary Care Prov ider Encounter Details Date Type Department Care Team (Late st Contact Info) Description 07/17/2023 Telephone [facility] MEDICINE 230 [place] [address] Leandro Moura MD 505 [place] [address] Social History Tobacco Use Types Packs/Day Years [...] encounter Miscellaneous Notes * Telephone Encounter - Nicolas Cantrell RN - 07/28/2023 9:28 AM EDT TC placed, spoke w/ pt, who is still waiting on insurance. Pt continues to use CGM with no difficulty or concerns. RN advised pt to contact our office once issue with insurance is resolved. Pt verbalized understanding and agreed to plan. Will continue to track. * Telephone Encounter - Estelle Bradford RN - 07/20/2023 1:50 PM EDT Pt was to f/u with RN for CGM f/u as based on readings will determine if pt will be cleared. Pt is dealing with insurance and once insurance is once again active we can r/s [place] f/u CGM and go from there. * Telephone Encounter - Lise Hernandez - 07/17/2023 12:46 PM EDT Tc from pt regarding clearance for cataract surgery. Pt stated her blood sugar levels have been controlled for a week now and was advised to contact PCP in order to get clearance for cataract surgery. Pt in surgery office right now. documented in this encounter Plan of Treatment Upcoming Encounters Date Type Department Care Team (Late st Contact Info) Description 12/18/2024 9:30 AM EST Office Visit [facility] OPTOMETRY [address] [place] [address] Yenny Andrade, OD [address] [place] [address] documented as of this encounter Visit Diagnoses Not on filedocumented in this encounter Additional Health Concerns Assessment Noted Time PHQ-9 Depression Total Score: 17 024 8:56 AM EST documented as of this encounter Care Teams Explosive Ordnance Disposal Technician Relationship Specialty Start Date End Date Leandro Moura MD [address] [place] [address] PCP - General Internal Medicine 06/28/19 documented as of this encounter
--- OUTSIDE RECORDS SUMMARY | 2024-10-30 09:27 | XMS_ITS | Encounter Summary ---
Author Organization [employer] Address 75 [facility] 7t [place] [address] Care Team Providers Care Ten Pin Bowling Centre Manager Name Role Phone Leandro Moura MD Primary Care Prov ider Reason for Visit * Reason Comments Med Refill Encounter Details Date Type Department Care Team (Late st Contact Info) Description 07/19/[address] [facility] MEDICINE 230 [place] [address] Leandro Moura MD 505 [place] [address] Gastroesophageal reflux disease without esophagitis Social History Tobacco Use Types Packs/Day Years [...] encounter Miscellaneous Notes * Telephone Encounter - Elizabeth Ruiz - 08/02/2023 3:51 PM EDT Contacted patient, explained that she does not meet the disqualification for her [place] Security Disability Exception. She needs t have a physical, developmental or mental impairment lasting or expected to last 12mths. Her current medical conditions do not disqualify her. Patient can discuss further with provider and seek out additional services to help with process if she would like. Patient understood. documented in this encounter Plan of Treatment Upcoming Encounters Date Type Department Care Team (Late st Contact Info) Description 12/18/2024 9:30 AM EST Office Visit [facility] OPTOMETRY [address] [place] [address] Yenny Andrade, OD 230 [facility] [place] [address] documented as of this encounter Visit Diagnoses Diagnosis Gastroesophageal reflux disease without esophagitis Esophageal reflux documented in this encounter Additional Health Concerns Assessment Noted Time PHQ-9 Depression Total Score: 17 024 8:56 AM EST documented as of this encounter Care Teams [employer] [place] [employer] [place] Manager Relationship Specialty Start Date End Date Leandro Moura MD 505 [place] [address] PCP - General Internal Medicine 06/28/19 documented as of this encounter
--- OUTSIDE RECORDS SUMMARY | 2024-10-30 09:27 | XMS_ITS | Continuity of Care Document ---
Author Name Elvis Obregon Address [address] [place] [address] Organization Unknown Address [address] [place] [address] Medications No known medications Problems No known problems
--- OUTSIDE RECORDS SUMMARY | 2024-10-30 09:27 | XMS_ITS | Encounter Summary ---
Author Organization [employer] Address 75 [facility] 7t [place] [address] Care Team Providers Care Maintenance And Custodian Supervisor Name Role Phone Leandro Moura MD Primary Care Prov ider Reason for Visit * Reason Comments Med Refill Encounter Details Date Type Department Care Team ([facility] st Contact Info) Description 10/16/2023 Refill [facility] CHC MED & PEDS 505 [place], [place] [phone] Leandro Moura MD 505 [place] [address] Social History Tobacco Use Types Packs/Day Years [...] Description 12/18/2024 9:30 AM EST Office Visit [facility] OPTOMETRY [address] [place] [address] Raymond, Yenny, OD [address] [place] [address] documented as of this encounter Visit Diagnoses Not on filedocumented in this encounter Additional Health Concerns Assessment Noted Time PHQ-9 Depression Total Score: 17 024 8:56 AM EST documented as of this encounter Care Teams Maintenance And Custodian Supervisor Relationship Specialty Start Date End Date Leandro Moura MD 505 [place] [address] PCP - General Internal Medicine 06/28/19 documented as of this encounter
--- OUTSIDE RECORDS SUMMARY | 2024-10-30 09:27 | XMS_ITS | Encounter Summary ---
Author Organization [employer] Address 75 [facility] 7t [place] [address] Care Team Providers Care Paper Slitter Name Role Phone Leandro Moura MD Primary Care Prov ider Reason for Visit * Reason Onset Date Comments Uber request 06/22/2023 Encounter Details Date Type Department Care Team ([facility] Contact Info) Description 06/22/2023 Telephone [facility] MED & PEDS 505 [place] [address] Leandro Moura MD 505 [place] [address] Uber request Social History Tobacco Use Types Packs/Day Years [...] encounter Miscellaneous Notes * Telephone Encounter - Estelle Bradford RN - 06/22/2023 11:51 AM EDT We do not provide Uber transport for specialty appts. Pt has and can request PT1 services. * Telephone Encounter - Gabi Joshua - 06/22/2023 11:20 AM EDT Patient calling requesting an uber Home Address verified: Y/N: Yes Pt phone: [phone] Provider name or facility name: [facility] Facility Address: [address] [place] [address] [place] [address] Escort needed: Y/N: No Do you have a wheelchair: Y/N: No Appt time and date: 06/26/23 @ 11 am documented in this encounter Plan of Treatment Upcoming Encounters Date Type Department Care Team (Late st Contact Info) Description 12/18/2024 9:30 AM EST Office Visit [facility] OPTOMETRY [address] [place] [address] Raymond Yenny, OD [address] [place] [address] documented as of this encounter Visit Diagnoses Not on filedocumented in this encounter Additional Health Concerns Assessment Noted Time PHQ-9 Depression Total Score: 17 024 8:56 AM EST documented as of this encounter Care Teams Paper Slitter Relationship Specialty Start Date End Date Leandro Moura MD [address] [place] [address] PCP - General Internal Medicine 06/28/19 documented as of this encounter
--- OUTSIDE RECORDS SUMMARY | 2024-10-30 09:28 | XMS_ITS | Encounter Summary ---
Author Organization [employer] Address 75 [facility] 7t [place] [address] Care Team Providers Care Remedial Masseur Name Role Phone Leandro Moura MD Primary Care Prov ider Reason for Visit * Reason Onset Date Comments Durable Medical Equipment 11/28/2023 Encounter Details Date Type Department Care Team ([facility] st Contact Info) Description 11/28/2023 Telephone [facility] MEDICINE 230 [place] [address] Leandro Moura MD 505 [place] [address] Durable Medical Equipment Social History Tobacco Use Types Packs/Day Years [...] encounter Miscellaneous Notes * Telephone Encounter - Bindu Segura LPN - 12/13/2023 2:13 PM EST Please review message below and advise, If agreed pt will need Documentation and Dx . * Telephone Encounter - Gabi Joshua - 12/13/2023 11:57 AM EST Tc from pt returning call regarding last message. * Telephone Encounter - Bindu Segura LPN - 12/04/2023 1:20 PM EDT Please review message below and advise, If agreed pt will need Documentation and Dx . * Telephone Encounter - Gabi Joshua - 12/04/2023 10:25 AM EDT Tc from pt requesting status on DME request. * Telephone Encounter - Bindu Segura LPN - 11/30/2023 11:24 AM EDT Please review Message below and advise, will need Documentation to Support , Tc from patient calling to request the following DME . Jerman Simons Bedside commode Recliner lift chair Diabetic shoes Shower Chair large * Telephone Encounter - Kobe Zechariah - 11/28/2023 3:55 PM EDT Tc from patient calling to request the following DME . Jerman Simons Bedside commode Recliner lift chair Diabetic shoes Shower Chair large documented in this encounter Plan of Treatment Upcoming Encounters Date Type Department Care Team (Late st Contact Info) Description 12/18/2024 9:30 AM EST Office Visit [facility] OPTOMETRY [address] [place], [place] [phone] Raymond, Megan, OD [address] [place] [address] documented as of this encounter Visit Diagnoses Not on filedocumented in this encounter Additional Health Concerns Assessment Noted Time PHQ-9 Depression Total Score: 17 024 8:56 AM EST documented as of this encounter Care Teams Remedial Masseur Relationship Specialty Start Date End Date Leandro Moura MD [address] [place] [address] PCP - General Internal Medicine 06/28/19 documented as of this encounter
--- OUTSIDE RECORDS SUMMARY | 2024-10-30 09:28 | XMS_ITS | Encounter Summary ---
Author Organization [employer] Address 75 [facility] 7t [place] [address] Care Team Providers Care Flight Deck Officer Name Role Phone Leandro Moura MD Primary Care Prov ider Reason for Visit * Reason Comments Med Refill Encounter Details Date Type Department Care Team (Late Contact Info) Description 03/02/2022 Refill [facility] MEDICINE 230 [place] [address] Leandro Moura MD 505 [place], [place] [phone] Primary hypertension; Neuropathy Social History Tobacco Use Types Packs/Day Years [...] 9:30 AM EST Office Visit [facility] OPTOMETRY [address] [place] [address] RaymondYenny rodrigues, OD 230 [place] [address] documented as of this encounter Visit Diagnoses Diagnosis Primary hypertension Unspecified essential hypertension Neuropathy Mononeuritis of unspecified site documented in this encounter Care Teams Flight Deck Officer Relationship Specialty Start Date End Date Leandro Moura MD [address] [place] [address] PCP - General Internal Medicine 06/28/19 documented as of this encounter
--- OUTSIDE RECORDS SUMMARY | 2024-10-30 09:28 | XMS_ITS | Encounter Summary ---
Author Organization [employer] [facility] Address 75 [facility] 7t [place] [address] Care Team Providers Care Regional Account Executive Name Role Phone Leandro Moura MD Primary Care Prov ider Encounter Details Date Type Department Care Team (Latest Contact Info) Description 12/18/[address] [facility] CONVERSIONS Dental, Provider, DDS Social History Tobacco Use Types Packs/Day Years [...] Description 12/18/2024 9:30 AM EST Office Visit [facility] OPTOMETRY [address] [place] [address] Raymond, Yenny, OD [address] [place] [address] documented as of this encounter Visit Diagnoses Not on filedocumented in this encounter Care Teams Regional Account Executive Relationship Specialty Start Date End Date Leandro Moura MD 505 [place] [address] PCP - General Internal Medicine 06/28/19 documented as of this encounter
[2024-10-30 15:18] LABS: Alanine Aminotransferase 59 U/L (0-31); Albumin Level 4.1 g/dL (3.5-5.0); Alkaline Phosphatase 68 U/L (39-117); Anion Gap 10 (12-20); Aspartate Amino Transferase 53 U/L (5-31); Blood Urea Nitrogen 13 mg/dL (9-16); Calcium 9.6 mg/dL (8.4-10.2); Carbon Dioxide 31 mmol/L (22-29); Chloride 104 mmol/L (96-108); Estimated Glomerular Filt Rate > 60; Potassium 4.4 mmol/L (3.3-5.1); Sodium 141 mmol/L (135-145); Total Protein 7.3 g/dL (6.5-8.0)
== END 2024-10-30 08:30 | disposition home or self-care (01) ==
LOC: HO.CHCLDS 08:29
PROVIDERS: Visit Provider Internal Medicine
DX: E11.42 Type 2 diabetes mellitus with diabetic polyneuropathy (principal)
CPT/HCPCS: 36415; 80053

== ENCOUNTER 2024-11-05 07:17 | Outpatient (REF) | payer OTHER, SELFPAY ==
--- OUTSIDE RECORDS SUMMARY | 2024-11-05 07:19 | XMS_ITS | Encounter Summary ---
Author Organization [employer] Address [address] [facility] 7t [place] [address] Care Team Providers Care Gm Mobile Name Role Phone Leandro Moura MD Primary Care Prov ider Encounter Details Date Type Department Care Team (Late st Contact Info) Description 07/22/2024 Telephone [facility] MEDICINE 230 [place] [address] Leandro Moura MD 505 [place] [address] Social History Tobacco Use Types Packs/Day Years [...] 9:30 AM EST Office Visit [facility] OPTOMETRY [address] [place] [address] Raymond, Yenny, OD [address] [place] [address] documented as of this encounter Visit Diagnoses Not on filedocumented in this encounter Additional Health Concerns Assessment Noted Time PHQ-9 Depression Total Score: 4 02/28/19 25 10:04 AM EST documented as of this encounter Care Teams Gm Mobile Relationship Specialty Start Date End Date Leandro Moura MD [address] [place] [address] PCP - General Internal Medicine 06/28/19 documented as of this encounter
--- OUTSIDE RECORDS SUMMARY | 2024-11-05 07:19 | XMS_ITS | Clinical Summary ---
Author Organization [facility] Address [address] [place] [address] Care Team Providers Care Ground Hand Name Role Phone Unavailable Primary Care Provider [...]
--- OUTSIDE RECORDS SUMMARY | 2024-11-05 07:19 | XMS_ITS | Encounter Summary ---
Author Organization [employer] Address [address] [facility] 7t [place] [address] Care Team Providers Care Subassembly Supervisor Name Role Phone Leandro Moura MD Primary Care Prov ider Encounter Details Date Type Department Care Team ([facility] Contact Info) Description 09/14/2022 Orders Only [facility] CHC MED & PEDS [address] [place], [place] [phone] Leandro Moura MD 505 [place] [address] Social History Tobacco Use Types Packs/Day Years [...] Description 12/18/2024 9:30 AM EST Office Visit [facility] OPTOMETRY [address] [place], [place] [phone] Raymond, Yenny, OD [address] [place] [address] documented as of this encounter Procedures Procedure [...] documented as of this encounter Care Teams Subassembly Supervisor Relationship Specialty Start Date End Date Leandro Moura MD [address] [place] [address] PCP - General Internal Medicine 06/28/19 documented as of this encounter
--- OUTSIDE RECORDS SUMMARY | 2024-11-05 07:19 | XMS_ITS | Encounter Summary ---
Author Organization [employer] Address [address] [facility] [address]t [place] [address] Care Team Providers Care Neonatal Nurse Name Role Phone Leandro Moura MD Primary Care Prov ider Encounter Details Date Type Department Care Team (Late Contact Info) Description 09/20/2022 Orders Only [facility] CHC MED & PEDS [address] [place], [place] [phone] Rhiannon He LPN Social History Tobacco Use [...] 12/18/2024 9:30 AM EST Office Visit [facility] OPTOMETRY [address] [place], [place] [phone] Yenny Andrade, OD [address] [place] [address] documented as of this encounter Visit Diagnoses Not on filedocumented in this encounter Additional Health Concerns Assessment Noted Time PHQ-9 Depression Total Score: 27 023 9:58 AM EDT documented as of this encounter Care Teams Neonatal Nurse Relationship Specialty Start Date End Date Leandro Moura MD [address] [place] [address] PCP - General Internal Medicine 06/28/19 documented as of this encounter
--- OUTSIDE RECORDS SUMMARY | 2024-11-05 07:20 | XMS_ITS | Encounter Summary ---
Author Organization [employer] Address [address] [facility] 7t [place] [address] Care Team Providers Care Relish Blender Name Role Phone Leandro Moura MD Primary Care Prov ider Reason for Visit * Reason Onset Date Comments Referral 07/14/2023 Encounter Details Date Type Department Care Team ([facility] st Contact Info) Description 07/14/2023 Telephone [facility] MEDICINE [address] [place] [address] Leandro Moura MD [address] [place] [address] Referral Social History Tobacco Use Types Packs/Day [...] Description 12/18/2024 9:30 AM EST Office Visit [facility] OPTOMETRY [address] [place] [address] Yenny Andrade, OD [address] [facility] [place] [address] documented as of this encounter Visit Diagnoses Not on filedocumented in this encounter Additional Health Concerns Assessment Noted Time PHQ-9 Depression Total Score: 17 024 8:56 AM EST documented as of this encounter Care Teams Relish Blender Relationship Specialty Start Date End Date Leandro Moura MD [address] [place] [address] PCP - General Internal Medicine 06/28/19 documented as of this encounter
--- OUTSIDE RECORDS SUMMARY | 2024-11-05 07:20 | XMS_ITS | Encounter Summary ---
Author Organization [employer] Address [address] [facility] 7t [place] [address] Care Team Providers Care Liquor Commissioner Name Role Phone Leandro Moura MD Primary Care Prov ider Encounter Details Date Type Department Care Team (Late Contact Info) Description 06/27/2022 Orders Only [facility] CHC MED & PEDS [address] [place], [place] [phone] Loida Carey LPN Social History Tobacco Use [...] 12/18/2024 9:30 AM EST Office Visit [facility] OPTOMETRY [address] [place], [place] [phone] Raymond, Megan, OD 230 [facility] [place] [address] documented as of this encounter Visit Diagnoses Not on filedocumented in this encounter Additional Health Concerns Assessment Noted Time PHQ-9 Depression Total Score: 27 023 9:58 AM EDT documented as of this encounter Care Teams Liquor Commissioner Relationship Specialty Start Date End Date Leandro Moura MD [address] [place] [address] PCP - General Internal Medicine 06/28/19 documented as of this encounter
--- OUTSIDE RECORDS SUMMARY | 2024-11-05 07:20 | XMS_ITS | Encounter Summary ---
Author Organization [employer] Address [address] [facility] 7t [place] [address] Care Team Providers Care Adult Care Manager Name Role Phone Leandro Moura MD Primary Care Prov ider Reason for Visit * Reason Comments Med Refill Encounter Details Date Type Department Care Team ([facility] st Contact Info) Description 10/16/2023 Refill [facility] CHC MED & PEDS [address] [place], [place] [phone] Leandro Moura MD 505 [place] [address] Social History Tobacco Use Types Packs/Day Years [...] 9:30 AM EST Office Visit [facility] OPTOMETRY [address] [place] [address] Raymond, Yenny, OD [address] [place] [address] documented as of this encounter Visit Diagnoses Not on filedocumented in this encounter Additional Health Concerns Assessment Noted Time PHQ-9 Depression Total Score: 17 024 8:56 AM EST documented as of this encounter Care Teams Adult Care Manager Relationship Specialty Start Date End Date Leandro Moura MD [address] [place] [address] PCP - General Internal Medicine 06/28/19 documented as of this encounter
--- OUTSIDE RECORDS SUMMARY | 2024-11-05 07:20 | XMS_ITS | Encounter Summary ---
Author Organization [employer] Address [address] [facility] 7t [place] [address] Care Team Providers Care Health And Safety Representative Name Role Phone Leandro Moura MD Primary Care Prov ider Reason for Visit * Reason Onset Date Comments Pre OP 2023 Encounter Details Date Type Department Care Team ([facility] st Contact Info) Description 2023 Telephone [facility] CHC MED & PEDS [address] [place] [address] Leandro Moura MD [address] [place] [address] Pre OP Social History Tobacco Use Types [...] rajput Facility name: [facility] Surgeon's office number: [phone] ext [facility] Surgeon's office fax number: [phone] Contact name (person you spoke with): Clarissa Last office note from surgeon requested: yes documented in this encounter Plan of Treatment Upcoming Encounters Date Type Department Care Team (Late st Contact Info) Description 12/18/2024 9:30 AM EST Office Visit [facility] OPTOMETRY [address] [place], [place] [phone] Raymond, Yenny, OD [address] [place], [place] [phone] documented as of this encounter Visit Diagnoses Not on filedocumented in this encounter Additional Health Concerns Assessment Noted Time PHQ-9 Depression Total Score: 17 024 8:56 AM EST documented as of this encounter Care Teams Health And Safety Representative Relationship Specialty Start Date End Date Leandro Moura MD [address] [place] [address] PCP - General Internal Medicine 06/28/19 documented as of this encounter
--- OUTSIDE RECORDS SUMMARY | 2024-11-05 07:20 | XMS_ITS | Encounter Summary ---
Author Organization [employer] Address [address] [facility] [address] 7t [place] [address] Care Team Providers Care Software Licensing Specialist Name Role Phone Leandro Moura MD Primary Care Prov ider Encounter Details Date Type Department Care Team (Late st Contact Info) Description 07/17/2023 Telephone [facility] MEDICINE [address] [place] [address] Leandro Moura MD [address] [place] [address] Social History Tobacco Use Types Packs/Day Years [...] 12/18/2024 9:30 AM EST Office Visit [facility] OPTOMETRY [address] [place] [address] Yenny Andrade, OD [address] [place] [address] documented as of this encounter Visit Diagnoses Not on filedocumented in this encounter Additional Health Concerns Assessment Noted Time PHQ-9 Depression Total Score: 17 024 8:56 AM EST documented as of this encounter Care Teams Software Licensing Specialist Relationship Specialty Start Date End Date Leandro Moura MD [address] [place] [address] PCP - General Internal Medicine 06/28/19 documented as of this encounter
--- OUTSIDE RECORDS SUMMARY | 2024-11-05 07:20 | XMS_ITS | Encounter Summary ---
Author Organization [employer] Address 75 [facility] 7t [place] [address] Care Team Providers Care Shank Maker Name Role Phone Leandro Moura MD Primary Care Prov ider Reason for Visit * Reason Onset Date Comments Durable Medical Equipment 11/28/2023 Encounter Details Date Type Department Care Team ([facility] st Contact Info) Description 11/28/2023 Telephone [facility] MEDICINE 230 [place] [address] Leandro Moura MD [address] [place] [address] Durable Medical Equipment Social History Tobacco Use [...] Office Visit [facility] OPTOMETRY [address] [place], [place] [phone] Raymond, Megan, OD [address] [place] [address] documented as of this encounter Visit Diagnoses Not on filedocumented in this encounter Additional Health Concerns Assessment Noted Time PHQ-9 Depression Total Score: 17 024 8:56 AM EST documented as of this encounter Care Teams Shank Maker Relationship Specialty Start Date End Date Leandro Moura MD [address] [place] [address] PCP - General Internal Medicine 06/28/19 documented as of this encounter
--- OUTSIDE RECORDS SUMMARY | 2024-11-05 07:20 | XMS_ITS | Encounter Summary ---
Author Organization [employer] Address [address] [facility] [address] 7[address] [place] [address] Care Team Providers Care Granite Fabricator Name Role Phone Leandro Moura MD Primary Care Prov ider Encounter Details Date Type Department Care Team (Late st Contact Info) Description 07/17/2023 Telephone [facility] MEDICINE [address] [place] [address] Leandro Moura MD [address] [place] [address] Social History Tobacco Use Types Packs/Day Years [...] Description 12/18/2024 9:30 AM EST Office Visit [facility] OPTOMETRY [address] [place] [address] Raymond, Yenny, OD [address] [place] [address] documented as of this encounter Visit Diagnoses Not on filedocumented in this encounter Additional Health Concerns Assessment Noted Time PHQ-9 Depression Total Score: 17 024 8:56 AM EST documented as of this encounter Care Teams Granite Fabricator Relationship Specialty Start Date End Date Leandro Moura MD [address] [place] [address] PCP - General Internal Medicine 06/28/19 documented as of this encounter
--- OUTSIDE RECORDS SUMMARY | 2024-11-05 07:20 | XMS_ITS | Encounter Summary ---
Author Organization [employer] Address [address] [facility] 7t [place] [address] Care Team Providers Care Atomizer Assembler Name Role Phone Leandro Moura MD Primary Care Prov ider Reason for Visit * Reason Onset Date Comments Uber request 06/22/2023 Encounter Details Date Type Department Care Team ([facility] Contact Info) Description 06/22/2023 Telephone [facility] MED & PEDS [address] [place] [address] Leandro Moura MD 505 [place] [address] [employer] request Social History Tobacco Use Types [...] Home Address verified: Y/N: Yes Pt phone: [phone] Provider name or facility name: [facility] Facility Address: [address] [place] [address] [place] [address] Escort needed: Y/N: No Do you have a wheelchair: Y/N: No Appt time and date: 06/26/23 @ 11 am documented in this encounter Plan of Treatment Upcoming Encounters Date Type Department Care Team (Late st Contact Info) Description 12/18/2024 9:30 AM EST Office Visit [facility] OPTOMETRY [address] [place] [address] Raymond Yenny, OD [address] [place] [address] documented as of this encounter Visit Diagnoses Not on filedocumented in this encounter Additional Health Concerns Assessment Noted Time PHQ-9 Depression Total Score: 17 024 8:56 AM EST documented as of this encounter Care Teams Atomizer Assembler Relationship Specialty Start Date End Date Leandro Moura MD [address] [place] [address] PCP - General Internal Medicine 06/28/19 documented as of this encounter
--- OUTSIDE RECORDS SUMMARY | 2024-11-05 07:20 | XMS_ITS | Encounter Summary ---
Author Organization [employer] Address [address] [facility] 7t [place] [address] Care Team Providers Care Emergency Medicine Specialist Name Role Phone Leandro Moura MD Primary Care Prov ider Reason for Visit * Reason Comments Med Refill Encounter Details Date Type Department Care Team ([facility] st Contact Info) Description 10/30/2023 Refill [facility] CHC MED & PEDS [address] [place], [place] [phone] Leandro Moura MD 505 [place] [address] Social History Tobacco Use Types Packs/Day Years [...] Description 12/18/2024 9:30 AM EST Office Visit [facility] OPTOMETRY [address] [place] [address] Raymond, Yenny, OD [address] [place] [address] documented as of this encounter Visit Diagnoses Not on filedocumented in this encounter Additional Health Concerns Assessment Noted Time PHQ-9 Depression Total Score: 17 024 8:56 AM EST documented as of this encounter Care Teams Emergency Medicine Specialist Relationship Specialty Start Date End Date Leandro Moura MD [address] [place] [address] PCP - General Internal Medicine 06/28/19 documented as of this encounter
--- OUTSIDE RECORDS SUMMARY | 2024-11-05 07:20 | XMS_ITS | Encounter Summary ---
Author Organization [employer] Address [address] [facility] 7t [place] [address] Care Team Providers Care Atomic Physics Teacher Name Role Phone Leandro Moura MD Primary Care Prov ider Reason for Visit * Reason Onset Date Comments [facility] 07/18/2023 Encounter Details Date Type Department Care Team ([facility] st Contact Info) Description 07/18/[address] [facility] MEDICINE [address] [place] [address] Leandro Moura MD [address] [place] [address] [facility] Social History Tobacco Use Types Packs/Day Years [...] for appt today, pt at daughter address; [address] [place] [address] Phone confirmed documented in this encounter Plan of Treatment Upcoming Encounters Date Type Department Care Team (Late st Contact Info) Description 12/18/2024 9:30 AM EST Office Visit [facility] OPTOMETRY [address] [place] [address] Raymond, Yenny, OD 230 [facility] [place] [address] documented as of this encounter Visit Diagnoses Not on filedocumented in this encounter Additional Health Concerns Assessment Noted Time PHQ-9 Depression Total Score: 17 024 8:56 AM EST documented as of this encounter Care Teams Atomic Physics Teacher Relationship Specialty Start Date End Date Leandro Moura MD 505 [place] [address] PCP - General Internal Medicine 06/28/19 documented as of this encounter
--- OUTSIDE RECORDS SUMMARY | 2024-11-05 07:20 | XMS_ITS | Encounter Summary ---
Author Organization [employer] [facility] Address [address] [facility] 7t [place] [address] Care Team Providers Care Expeller Worker Name Role Phone Leandro Moura MD Primary Care Prov ider Encounter Details Date Type Department Care Team (Latest Contact Info) Description 12/18/2018 Abstract [facility] CONVERSIONS Dental, Provider, DDS Social History Tobacco [...] Description 12/18/2024 9:30 AM EST Office Visit [facility] OPTOMETRY [address] [place] [address] Raymond, Yenny, OD [address] [place] [address] documented as of this encounter Visit Diagnoses Not on filedocumented in this encounter Care Teams Expeller Worker Relationship Specialty Start Date End Date Leandro Moura MD 505 [place] [address] PCP - General Internal Medicine 06/28/19 documented as of this encounter
--- OUTSIDE RECORDS SUMMARY | 2024-11-05 07:20 | XMS_ITS | Clinical Summary ---
Author Organization [employer] Address [address] [facility] 7t [place] [address] Care Team Providers Care Fork Assembler Name Role Phone Leandro Moura MD [...] polyneuropathy, without long-term current use of insulin (HCC) Take 1 tablet (1,000 mg) by mouth [...] polyneuropathy, without long-term current use of insulin ([facility]) TAKE ONE TABLET TWICE DAILY BEFORE MEALS 180 tablet 1 025 Active insulin pen needle (B-D UF III MINI PEN NEEDLES) 31G x 5 mm [facility] USE TO INJECT lantus DAILY 100 each 11 025 Active Blood Glucose Monitoring Suppl (FreeStyle [place] Lite) w/Device kit TEST BLOOD SUGAR THREE TIMES DAILY 1 kit 025 Active gabapentin (Neurontin) 300 MG capsuleIndication s:Neuropathy TAKE ONE CAPSULE THREE TIMES DAILY 90 capsule 1 025 Active cyclobenzaprine (Flexeril) 10 MG tablet TAKE ONE TABLET THREE TIMES DAILY 30 tablet 2 025 Active Continuous Glucose Metal Sander (FreeStyle [place]) deviceIndications :Type 2 diabetes mellitus with diabetic polyneuropathy, without long-term current use of insulin ([facility]) Scan sensor every 8 hours 1 each 025 Active Continuous Glucose Sensor (FreeStyle Sánchez 2 Sensor) miscIndications:T ype 2 diabetes mellitus with diabetic polyneuropathy, without long-term current use of insulin ([facility]) 1 Units every 14 (fourteen) days. 2 each 3 025 Active Continuous Glucose Metal Sander (FreeStyle Sán[place]) deviceIndications :Type 2 diabetes mellitus with diabetic polyneuropathy, without long-term current use of insulin ([facility]) 1 each Once per day. Use as directed for CGM 1 each 025 Active Continuous Glucose Sensor (FreeStyle Sánchez 3 Plus Sensor) miscIndications:T ype 2 diabetes mellitus with diabetic polyneuropathy, without long-term current use of insulin (HCC) 1 each every 15 days. Apply 1 every 15 days as directed for CGM 2 each Active simvastatin (Zocor) 20 MG tabletIndications :Mixed hyperlipidemia TAKE ONE TABLET EVERY NIGHT AT BEDTIME 90 tablet 1 Active Trulicity 4.5 MG/0.5ML solution auto-injectorIndi cations:Type 2 diabetes mellitus with diabetic polyneuropathy (HCC) INJECT ONE PEN (=4.5MG) SUBCUTANEOUSLY ONCE A WEEK DIRECTED 2 mL Active amitriptyline (Elavil) 50 MG tablet TAKE ONE TABLET EVERY NIGHT AT BEDTIME 30 tablet 2 025 Active dextran 70-hypromellose PF (Artificial Tears PF) [...] TAKE ONE TABLET EVERY NIGHT AT BEDTIME Active naproxen (Naprosyn) 500 MG tablet Take [...] were reviewed. Patient requesting the following DME: Rolator Walker Bedside commode Recliner lift chair Diabetic shoes [...] Center 05/05/2022 10:15 AM Leandro Magallon MD [facility] Type 2 diabetes mellitus wit h [...] target ldl<70 Mood disorder 05/01/2017 Morbid obesity ([facility]/HCC) 05/01/2017 Obstructive sleep apnea syndrome 05/01/2017 Assessment [...] Team Description 10/23/2024 9:00 AM EDT Telemedicine [facility] [address] [place] [address] Leandro Moura MD Type 2 diabetes mellitus with diabetic polyneuropathy, without long-term current use of insulin ([facility]) (Primary Dx) 10/23/2024 Travel 10/21/2024 Telephone [facility] [address] [place] [address] Leandro Moura MD chart prep 10/10/2024 Refill [facility] PEDS [address] [place] [address] Leandro Moura MD Gastroesophageal reflux disease without esophagitis 10/04/2024 Travel 09/12/2024 Refill [facility] PEDS [address] [place] [address] Leandro Moura MD Essential (primary) hypertension 09/11/2024 9:00 AM EDT Office Visit [facility] OPTOMETRY [address] [place] [address] Yenny Andrade, OD Meibomian gland disease, unspecified laterality (Primary Dx); Pseudophakia of both eyes 09/11/2024 Travel 09/09/2024 Telephone [facility] OPTOMETRY [address] [place] [address] Yenny Andrade, OD 08/16/2024 Refill [facility] PEDS [address] [place] [address] Leandro Moura MD 08/12/2024 Telephone [facility] MEDICINE [address] [place] [address] Leandro Moura MD Nurse Triage 08/09/2024 Refill [facility] MED [facility] PEDS [address] [place] [address] Leandro Moura MD Mixed hyperlipidemia; Type 2 diabetes mellitus with diabetic polyneuropathy ([facility]/HCC) from Last 3 Months Immunizations Immunization [...] Description 12/18/2024 9:30 AM EST Office Visit [facility] OPTOMETRY [address] [place] [address] Raymond, Yenny, OD [address] [place] [address] Health Maintenance Due Date Last Done Comments CT Colonography 1960 FIT DNA/Cologuard 1960 FIT 1960 FOBT 1960 Sigmoidoscopy 1960 RSV Patients and Patients Aged 60 years or older (1 - Risk 60-74 years 1-dose series) 2018 Zoster Vaccines (2 of 2) 10/07/2020 08/12/2020 Diabetes: Foot Exam 03/20/2024 03/20/2023, 03/20/2023, 03/20/2023, Additional history exists COVID-19 Vaccine (3 - season) 2024 06/23/2020, 04/30/2020 Influenza Vaccine [...] Procedure Name Priority Date/Time Associated Diagnosis Comments COMPREHENSIVE METABOLIC PANEL Routine 10/30/2024 8:33 AM EDT Type 2 diabetes mellitus with diabetic polyneuropathy, without long-term current use of insulin ([facility]) ALBUMIN, RANDOM URINE W/CREATININE Routine 07/15/2024 9:45 AM EDT Type 2 diabetes mellitus with diabetic polyneuropathy, without long-term current use of insulin (CMS/HCC) HEMOGLOBIN A1C Routine 07/15/2024 9:45 AM EDT Type 2 diabetes mellitus with diabetic polyneuropathy, without long-term current use of insulin ([facility]/HCC) LIPID PANEL, STANDARD Routine 07/15/2024 9:45 AM EDT Type 2 diabetes mellitus with diabetic polyneuropathy, without long-term current use of insulin ([facility]/HCC) BI MAMMOGRAM SCREENING TOMOSYNTHESIS BILATERAL Routine 11/02/2023 [...] Recently Relevant to Health Maintenance Results * (ABNORMAL) Comprehensive Metabolic Panel (10/30/2024 8:33 AM EDT) Sodium 141 135 - 145 mmol/L [facility] Potassium 4.4 3.3 - 5.1 mmol/L [facility] Chloride 104 96 - 108 mmol/L [facility] Carbon Dioxide 31(H) 22 - 29 mmol/L [facility] Anion Gap 10(L) 12 - 20 [facility] Urea Nitrogen (BUN) 13 9 - 16 mg/dL [facility] Creatinine, Serum 0.73 0.5 - 1.4 mg/dL [facility] Estimated Glomerular Filt Rate >60 [facility] Comment:Chronic Kidney Disea se: Estimated GFR < 60 mL/min/[id number] Kidney Disease: Estimated GFR < 15 mL/min/1.73m2 Glucose 110 60 - 115 mg/dL [facility] Calcium 9.6 8.4 - 10.2 mg/dL [facility] Bilirubin, Total 0.3 0.0 - 1.0 mg/dL [facility] Aspartate Amino Transferase 53(H) 5 - 31 U/L [facility] Alanine Aminotransferase 59(H) 0 - 31 U/L [facility] Total Protein 7.3 6.5 - 8.0 g/dL [facility] Albumin Level 4.1 3.5 - 5.0 g/dL [facility] Alkaline Phosphatase 68 39 - 117 U/L [facility] Blood Venous blood specimen / Unknown 10/30/2024 8:33 AM EDT 10/30/2024 2:35 PM EDT Leandro Magallon MD LAB BLOOD ORDERABL ES Final Result Performing Organization Address [facility] Co de Phone Number [facility] [address] [place] [phone] * Albumin, Random Urine W/Creatinine (07/15/2024 9:45 AM EDT) Creatinine, Urine 55.82 mg/dL [facility] Microalbumin Urine <5.0 mg/L [facility] Microalbum Creatinine Ratio Ur TNP <30 ug/mg cr [facility] Comment:Unable to calculate albumin/creatinine ratio due to lowmicroalbumin or creatinine result. Urine (Urine, Random) 07/15/2024 9:45 AM EDT 07/15/2024 2:06 PM EDT Leandro Magallon MD LAB URINE ORDERABL ES Final Result Performing Organization Address [facility] Co de Phone Number [facility] [address] [place] [phone] * (ABNORMAL) Hemoglobin A1c (07/15/2024 9:45 AM EDT) Hemoglobin A1c 11.3(H) <6.0 % [facility] Comment:Hemoglobin A1C Refer ence Range Adults: 4.8 - 6.0 % Non diabetic: < 6.0 % Goal: < 7.0 %Additional Action Suggested: > 8.0 %Note: Hemoglobin A1c results are invalid for patients with abnormal amounts of HbF. Blood transfusions may impact the HbA1c concentration in the patient sample. Estimated Average Glucose 278 mg/dL [facility] Comment:eAG = Estimated ave rage glucose which is %A1C expressed asaverage glucose, using the formula of the E3C-RddselhOzqxadj Glucose study (ADAG), Diabetes Care, Vol.31,#8,Sep. 2007 Blood Venous blood specimen / Unknown 07/15/2024 9:45 AM EDT 07/15/2024 2:17 PM EDT Leandro Magallon MD LAB BLOOD ORDERABL ES Final Result [facility] [address] [place], [place] [phone] * Lipid Panel, Standard (07/15/2024 9:45 AM EDT) Triglycerides 111 <150 mg/dL [facility] Comment:Desirable Triglyceri de: less than 150 mg/dLBorderline High Triglyceride 150-199 mg/dLHigh Triglyceride: 200-499 mg/dLVery High Triglyceride: greater than or equal to 5OO mg/dL Cholesterol 116 <200 mg/dL [facility] Comment:Desirable Cholestero l: less than 200 mg/dLBorderline High Cholesterol: 200-239 mg/dLHigh Cholesterol: greater than 239 mg/dL LDL Cholesterol Calculated 52 <100 mg/dL [facility] Comment:Desirable LDL: less than 100 mg/dLNear Optimal/Above Optimal LDL: 110- 129 mg/dLBorderline High LDL: 130-159 mg/dLHigh LDL: 160-189 mg/dLVery High LDL: greater than or equal to 190 mg/dL HDL Cholesterol 42 >40 mg/dL [facility] Comment:Desirable HDL: great er than 40 mg/dL Note: This HDL assay may give artificially low results in patients with liver disease. Blood Venous blood specimen / Unknown 07/15/2024 9:45 AM EDT 07/15/2024 2:17 PM EDT us Leandro Magallon MD LAB BLOOD ORDERABL ES Final Result [facility] [address] [place] [phone] * BI Mammogram Screening Tomosynthesis Bilateral (11/02/2023 2:40 PM EDT) Anatomical Region Laterality Modality Breast Bilateral Mammography 11/02/2023 2:40 PM EDT Narrative 11/14/2023 5:55 PM EDT [address] [place] [address] Mammography Report Signed Patient: Rita Lema MR#: [id number] : 1960 Acct:[id number] Age/Sex: 63 / F ADM Date: 11/02/23 Loc: HO.MAMMO Attending Dr: Leandro Magallon MD Ordering Physician: Leandro Moura MD Res ults: 1Negative Date of Service: 11/02/23 Follow Up: 1 Year From [facility] ina Mammogram Procedure(s): MM tomosynthesis screening BI Accession Number(s): [id number] cc: Leandro Moura MD EXAMINATION: MM SCREENING [...] 11/14/23 1752 DD/ 1440 TD/TT: 11/02/23 1452 Reconciliation Accountant: Procedure Note Donotuseinterpreter, Image - 11/14/2023 [facility] [address] [place] [address] Mammography Report Signed Patient: Rita Lema MR#: [id number] : 9Acct:[id number] Age/Sex: 63 / FADM Date: 11/02/23 Loc: HO.MAMMO Attending Dr: Leandro Magallon MD Ordering Physician: Leandro Moura ults: 1Negative Date of Service: 11/02/23Follow Up: 1 Year From [facility] Mammogram Procedure(s): MM tomosynthesis screening BI Accession Number(s): [id number] cc: Leandro Moura MD EXAMINATION: MM SCREENING [...] 11/14/23 1752 DD/ 1440 TD/TT: 11/02/23 1452 Reconciliation Accountant: Leandro Magallon MD IMG BI PROCEDURES Edited Result - Final * Hepatitis C Antibody with Reflex to HCV, RNA, Quantitative, Real-Time PCR (05/11/2022 8:32 AM EDT) Hepatitis C Antibody NON-REACT DANAE NON-REACT DANAE [facility] Index 0.02 <1.00 [employer] Comment: HCV antibody was non-reactive. There is no laboratory evidence of HCV infection. In most cases, no further action is required. However, if recent HCV exposure is suspected, a test for HCV RNA (test code 05546) is suggested. For additional information please refer to http://education.[employer]/faq/IES62f3 (This link is being provided for informational/ educational purposes only.) Blood Venous blood specimen / Unknown 05/11/2022 8:32 AM EDT 05/11/2022 8:32 AM EDT Narrative [facility] - 05/13/2022 10:22 PM EDT FASTING:YES FASTING: YES Leandro Magallon MD LAB BLOOD ORDERABL ES Final Result [facility] [address], [place] [address] [employer] [place] [employer] [address] [place] [address] * Colonoscopy (04/15/2020) Anatomical Region Laterality Modality Endoscopy Narrative 04/15/2020 No polyps removed Leandro Magallon MD ENDOSCOPY PROCEDUR E ORDERABLES Final Result * THINPREP PAP (03/31/2020 9:39 AM EST) Pathologist [facility] Clinical Information: None given [facility] [...] along with historic and current clinical information. Town Administrator : SEE COMMENT [facility] Comment: ED, CT(ASCP) CT screening location: [place] [address] Interpretation/R esult: Negative for intraepithelial lesion or malignancy. [facility] LMP: NONE GIVEN [facility] Prev. BX: NONE GIVEN [facility] Prev. PAP: NONE GIVEN [facility] SOURCE: None given [facility] Statement Of Adequacy: SEE COMMENT [facility] Comment: Satisfactory for evaluation. Endocervical/transformation zone component absent. 03/31/2020 9:39 AM EST [place] LAB PATHOLOGY ORDERABLES Final Result [facility] [address] * HPV mRNA E6/E7 (03/31/2020 9:39 AM EST) Pathologist [facility] HPV nRNA E6/E7 Not Detected Not Detected [facility] Comment: Methodology: Stencil Sprayer-Mediated Amplification This assay detects E6/E7 viral messenger RNA (mRNA) from 14 high-risk HPV types (16,18,31,33,35,39,45,51,52,56,58,59,66,68). The analytical performance characteristics of this assay have been determined by [employer]. The modifications have not been cleared or approved by the FDA. This assay has been validated pursuant to the CLIA regulations and is used for clinical purposes. For additional information, please refer to http://education.[employer]/XQX146f2 (This link if provided for information/ educational purposes only.) 03/31/2020 9:39 AM EST us [facility] LAB BLOOD ORDERABLES Fadumo l Result [facility] [address] from Last 3 Months or Most Recently Relevant to Health Maintenance Insurance [facility] CORRECTION OPTIONS (HMO D-SNP) [facility] Care Teams Fork Assembler Relationship Specialty Start Date End Date Leandro Moura MD [address] [place] [phone] PCP - General Internal Medicine 06/28/19
--- OUTSIDE RECORDS SUMMARY | 2024-11-05 07:20 | XMS_ITS | Encounter Summary ---
Author Organization [employer] Address [address] [facility] [address] [place] [address] Care Team Providers Care Sql Analyst Name Role Phone Leandro Moura MD Primary Care Prov ider Reason for Visit * Reason Comments Med Refill Encounter Details Date Type Department Care Team ([facility] st Contact Info) Description 08/18/2023 Refill [facility] MED & PEDS [address] [place], [place] [phone] Leandro Moura MD [address] [place] [address] Mixed hyperlipidemia Social History Tobacco Use Types [...] Description 12/18/2024 9:30 AM EST Office Visit [facility] OPTOMETRY [address] [place] [address] Raymond, Yenny, OD [address] [place] [address] documented as of this encounter Visit Diagnoses Diagnosis Mixed hyperlipidemia documented in this encounter Additional Health Concerns Assessment Noted Time PHQ-9 Depression Total Score: 17 024 8:56 AM EST documented as of this encounter Care Teams Sql Analyst Relationship Specialty Start Date End Date Leandro Moura MD [address] [place] [address] PCP - General Internal Medicine 06/28/19 documented as of this encounter
--- OUTSIDE RECORDS SUMMARY | 2024-11-05 07:20 | XMS_ITS | Encounter Summary ---
Author Organization [employer] Address [address] [facility] [address] [place] [address] Care Team Providers Care Sample Display Preparer Name Role Phone Leandro Moura MD Primary Care Prov ider Reason for Visit * Reason Comments Med Refill Encounter Details Date Type Department Care Team ([facility] st Contact Info) Description 10/27/2023 Refill [facility] MED & PEDS [address] [place], [place] [phone] Leandro Moura MD [address] [place] [address] Social History Tobacco Use Types Packs/Day Years [...] Description 12/18/2024 9:30 AM EST Office Visit [facility] OPTOMETRY [address] [place] [address] Raymond, Yenny, OD [address] [place] [address] documented as of this encounter Visit Diagnoses Not on filedocumented in this encounter Additional Health Concerns Assessment Noted Time PHQ-9 Depression Total Score: 17 024 8:56 AM EST documented as of this encounter Care Teams Sample Display Preparer Relationship Specialty Start Date End Date Leandro Moura MD [address] [place] [address] PCP - General Internal Medicine 06/28/19 documented as of this encounter
--- OUTSIDE RECORDS SUMMARY | 2024-11-05 07:20 | XMS_ITS | Encounter Summary ---
Author Organization [email or web address] Address [address] [facility] [address] [place] [address] Care Team Providers Care Third Officer Name Role Phone Leandro Moura MD Primary Care Prov ider Reason for Visit * Reason Comments Med Refill Encounter Details Date Type Department Care Team (Late Contact Info) Description 03/02/2022 Refill [facility] MEDICINE [address] [place] [address] Leandro Moura MD [address] [place], [place] [phone] Primary hypertension; Neuropathy Social History Tobacco Use [...] 9:30 AM EST Office Visit [facility] OPTOMETRY [address] [place] [address] RaymondYenny rodrigues, OD [address] [place] [address] documented as of this encounter Visit Diagnoses Diagnosis Primary hypertension Unspecified essential hypertension Neuropathy Mononeuritis of unspecified site documented in this encounter Care Teams Third Officer Relationship Specialty Start Date End Date Leandro Moura MD [address] [place] [phone] PCP - General Internal Medicine 06/28/19 documented as of this encounter
--- OUTSIDE RECORDS SUMMARY | 2024-11-05 07:20 | XMS_ITS | Encounter Summary ---
Author Organization [employer] Address [address] [facility] 7t [place] [address] Care Team Providers Care Teacher Music Name Role Phone Leandro Moura MD Primary Care Prov ider Reason for Visit * Reason Comments Med Refill Encounter Details Date Type Department Care Team (Late st Contact Info) Description 07/19/2023 Refill [facility] MEDICINE [address] [place] [address] Leandro Moura MD [address] [place] [address] Gastroesophageal reflux disease without esophagitis Social History [...] does not meet the disqualification for her [place] Security Disability Exception. She needs t have [...] 9:30 AM EST Office Visit [facility] OPTOMETRY [address] [place] [address] Yenny Andrade, OD [address] [facility] [place] [address] documented as of this encounter Visit Diagnoses Diagnosis Gastroesophageal reflux disease without esophagitis Esophageal reflux documented in this encounter Additional Health Concerns Assessment Noted Time PHQ-9 Depression Total Score: 17 024 8:56 AM EST documented as of this encounter Care Teams Teacher Music Relationship Specialty Start Date End Date Leandro Moura MD [address] [place] [address] PCP - General Internal Medicine 06/28/19 documented as of this encounter
== END 2024-11-05 07:18 | disposition home or self-care (01) ==
LOC: HO.MAMMO 07:17
PROVIDERS: PCP Internal Medicine; Visit Provider Internal Medicine
DX: Z12.31 Encounter for screening mammogram for malignant neoplasm of breast (principal)
CPT/HCPCS: 77063; 77067

== ENCOUNTER → 2024-11-05 07:30 | Outpatient (BNV) | payer OTHER, SELFPAY | PROVIDERS: PCP Internal Medicine; Visit Provider Internal Medicine | DX: Z12.31 Encounter for screening mammogram for malignant neoplasm of breast (principal) | CPT/HCPCS: 77063; 77067 ==

== ENCOUNTER 2025-01-22 08:59 | Outpatient (REF) | payer OTHER, SELFPAY ==
--- OUTSIDE RECORDS SUMMARY | 2025-01-22 08:30 | XMS_ITS | Encounter Summary ---
Author Organization [employer] Address [address] [facility] 7t [place] [address] Care Team Providers Care Svp Group Director Name Role Phone Leandro Moura MD Primary Care Prov ider Encounter Details Date Type Department Care Team (Latest Contact Info) Description 01/22/2025 8:30 AM EST Office Visit [facility] MED & PEDS [address] [place], [place] [phone] Leandro Moura MD [address] [place] [address] Primary hypertension (Primary Dx); Type 2 diabetes mellitus with diabetic polyneuropathy, without long-term current use of insulin (HCC); Type 2 diabetes mellitus with diabetic polyneuropathy (HCC) Social History Tobacco Use Types Packs/Day Years Used Date Smoking Tobacco: Never Passive Smoke Exposure: Never Smokeless Tobacco: Never Alcohol Use Standard Drinks/Week Comments Never 0 (1 standard drink = 0.6 oz pur e alcohol) Depression Answer Date Recorded Patient Health Questionnaire-9 Score 2 01/22/2025 Patient Health Questionnaire-9 Score 2 01/22/2025 Last PHQ-9: Questionnaire Data Not on file 1 03/25/2024 Housing Stability Answer Date Recorded What is your housing situation today? I have odalis shonna 02/29/[address] you li [...] Date Recorded Patient Health Questionnaire-2 Score 2 01/22/2025 Internet Access Answer Date Recorded Internet Access Q1 Yes 02/29/2024 Internet Access Q2 Not on file 02/29/2024 Comments No Sex and Gender Information Value Date Recorded Sex Assigned at Female 12/06/2021 10:21 AM EDT Legal Sex Female 10:21 AM EDT Gender Identity Choose not to disclose 10:21 AM EDT Sexual Orientation Straight 12/06/2021 10 :21 AM EDT documented as of this encounter Last Filed Vital Signs Vital Sign Reading Time Taken Comments Blood Pressure 120/75 01/22/2025 8:44 AM EST Pulse 88 01/22/2025 8:44 AM EST Temperature 36.9 C (98.4 F) 01/22/2025 8:44 AM EST Respiratory Rate 20 01/22/2025 8:44 AM EST Oxygen Saturation - - Inhaled Oxygen Concentration - - Weight 85.3 kg (188 lb) 01/22/2025 8:44 AM EST Height 152.4 cm (5') 01/22/2025 8:44 AM EST Body Mass Index 36.72 01/22/2025 8:44 AM EST documented in this encounter Functional Status * Over the past 2 weeks, how often have you been bothered by any of the following problems? Question Answer Date of Assessment Author Patient Health Questionnaire-2 Score 2 01/06 8:54 AM EST Bridget Apple MA * Little interest or pleasure in doing things Answer Date of Assessment Author Several days 01/22/2025 8:54 AM EST Jacqueline Apple MA * Feeling down, depressed, or hopeless Answer Date of Assessment Author Several days 01/22/2025 8:54 AM EST Jacqueline Apple MA * Trouble falling or staying asleep, or sleeping too much Answer Date of Assessment Author Not at all 01/22/2025 8:54 AM Jacqueline Mullen MA * Feeling tired or having little energy Answer Date of Assessment Author Not at all 01/22/2025 8:54 AM Jacqueline Mullen MA * Poor appetite or overeating Answer Date of Assessment Author Not at all 01/22/2025 8:54 AM Jacqueline Mullen MA * Feeling bad about yourself - or that you are a failure or have let yourself or your family down Answer Date of Assessment Author Not at all 01/22/2025 8:54 AM Jacqueline Mullen MA * Trouble concentrating on things, such as reading the newspaper or watching television Answer Date of Assessment Author Not at all 01/22/2025 8:54 AM Jacqueline Mullen MA * Moving or speaking so slowly that other people could have noticed? Or the opposite - being so fidgety or restless that you have been moving around a lot more than usual. Answer Date of Assessment Author Not at all 01/22/2025 8:54 AM Jacqueline Mullen MA * Thoughts that you would be better off or hurting yourself in some way Answer Date of Assessment Author Not at all 01/22/2025 8:54 AM Jacqueline Mullen MA * Patient Health Questionnaire-9 Score Answer Date of Assessment Author 2 01/22/2025 8:54 AM Jacqueline Mullen MA * How difficult have these problems made it for you to do your work, take care of things at home, or get along with other people? Answer Date of Assessment Author Somewhat difficult 01/22/2025 8:54 AM Bridget Mullen MA documented as of this encounter Progress Notes * Leandro Magallon MD - 01/22/2025 8:30 AM EST Subjective Patient ID: Rita Heart is a 64 y.o. adult who presents for No chief complaint on file.. Hypertension This is a chronic problem. The problem is controlled. Pertinent negatives include no chest pain, headaches, palpitations or shortness of breath. Diabetes Rita presents for Rita's follow-up diabetic visit. Rita has type 2 diabetes mellitus. Rita's disease course has been fluctuating. Pertinent negatives for hypoglycemia include no headaches. Pertinent negatives for diabetes include no chest pain, no foot ulcerations, no polydipsia, no polyphagia and no polyuria. Review of Systems Respiratory: Negative for shortness of breath. Cardiovascular: Negative for chest pain and palpitations. Endocrine: Negative for polydipsia, polyphagia and polyuria. Neurological: Negative for headaches. Objective Physical Exam Constitutional: General: Rita is not in acute distress. Appearance: Rita is normal weight. Eyes: Extraocular Movements: Extraocular movements intact. Pupils: Pupils are equal, round, and reactive to light. Cardiovascular: Rate and Rhythm: Normal rate and regular rhythm. Pulses: Dorsalis pedis pulses are 2+ on the right side and 2+ on the left side. Posterior tibial pulses are 2+ on the right side and 2+ on the left side. Heart sounds: Normal heart sounds. No murmur heard. Pulmonary: Effort: Pulmonary effort is normal. Breath sounds: Normal breath sounds. Abdominal: General: Bowel sounds are normal. There is no distension. Palpations: Abdomen is soft. There is no mass. Tenderness: There is no abdominal tenderness. There is no guarding. Musculoskeletal: General: Normal range of motion. Right lower leg: No edema. Left lower leg: No edema. Right foot: Normal range of motion. No deformity, bunion, Charcot foot or prominent metatarsal heads. Left foot: Normal range of motion. No deformity, bunion, Charcot foot or prominent metatarsal heads. Feet: Right foot: Protective Sensation: 7 sites tested. 7 sites sensed. Skin integrity: Skin integrity normal. No ulcer, blister, skin breakdown, erythema, warmth, callus or dry skin. Toenail Condition: Right toenails are normal. Left foot: Protective Sensation: 7 sites tested. 7 sites sensed. Skin integrity: Skin integrity normal. No ulcer, blister, skin breakdown, erythema, warmth, callus or dry skin. Toenail Condition: Left toenails are normal. Skin: Capillary Refill: Capillary refill takes less than 2 seconds. Findings: No rash. Neurological: Mental Status: Rita is oriented to person, place, and time. Psychiatric: Mood and Affect: Mood normal. Behavior: Behavior normal. Assessment/Plan Problem List Items Addressed This Visit Type 2 diabetes mellitus with diabetic polyneuropathy, without long-term current use of insulin (HCC) Patient is on lantus 30 units, metformin, jardiance and trulicity 4.5, will order new A1c, will discuss if short acting insulin needed on next appointment Relevant Medications insulin glargine (Lantus) 100 UNIT/ML pen empagliflozin (Jardiance) 25 MG Dulaglutide (Trulicity) 4.5 MG/0.5ML solution auto-injector Other Relevant Orders POCT Glucose (Completed) Primary hypertension - Primary Controlled, keep low sodium diet and exercise as tolerated, keep blood pressure log, target <140/90, follow up in 3 months Other Visit Diagnoses Type 2 diabetes mellitus with diabetic polyneuropathy (HCC) Relevant Medications insulin glargine (Lantus) 100 UNIT/ML pen empagliflozin (Jardiance) 25 MG Dulaglutide (Trulicity) 4.5 MG/0.5ML solution auto-injector Other Relevant Orders Comprehensive Metabolic Panel Lipid Panel, Standard Hemoglobin A1c POCT Glucose (Completed) documented in this encounter Miscellaneous Notes * Assessment & Plan Note - Leandro Magallon MD - 01/22/2025 8:58 AM ESTAssociated Problem(s): Type 2 diabetes mellitus with diabetic polyneuropathy, without long-term current use of insulin ([facility]) Patient is on lantus 30 units, metformin, jardiance and trulicity 4.5, will order new A1c, will discuss if short acting insulin needed on next appointment * Assessment & Plan Note - Leandro Magallon MD - 01/22/2025 8:57 AM ESTAssociated Problem(s): Primary hypertension Controlled, keep low sodium diet and exercise as tolerated, keep blood pressure log, target <140/90, follow up in 3 months documented in this encounter Plan of Treatment Upcoming Encounters Date Type Department Care Team (Late st Contact Info) Description 03/03/2025 9:30 AM EST Telemedicine [facility] [address] [place] [address] Leandro Moura MD [address] [place] [address] 04/01/2025 9:30 AM EST Procedure Visit [facility] MEDICINE [address] [place] [address] Hailey Turcios, RIVER [address] [place] [address] Scheduled Orders Name Type Priority Associated Diagnoses Orde r Schedule Comprehensive Metabolic Panel Lab Routine Type 2 diabetes mellitus with diabetic polyneuropathy (HCC) Expected: 01/22/2025 (Approximate), Expires: 01/22/2026 Lipid Panel, Standard Lab Routine Type 2 diabetes mellitus with diabetic polyneuropathy (HCC) Expected: 01/22/2025 (Approximate), Expires: 01/22/2026 Hemoglobin A1c Lab Routine Type 2 diabetes mellitus with diabetic polyneuropathy (HCC) Expected: 01/22/2025 (Approximate), Expires: 01/22/2026 documented as of this encounter Goals Goal Patient Goal Type Associated Problems Recent Progress Patient-Stated? Author Help patients manage their type 2 diabetes Care Plan Help patients manage their type 2 diabetes No Ramsey Andraden, OD Weekly blood pressure task Care Plan Weekly blood pressure task No Ramesy Andraden, OD Help patients manage their type 2 diabetes Care Plan Help patients manage their type 2 diabetes No Ramsey Andraden, OD Patient has chronic kidney disease Care Plan Patient has chronic kidney disease No Ramsey Andraden, OD Weekly blood pressure task Care Plan Weekly blood pressure task No Raymond Yenny, OD Patient has chronic kidney disease Care Plan Patient has chronic kidney disease No Yenny Andrade, OD Weekly blood pressure task Care Plan Weekly blood pressure task No Piedad Sotelo MA Weekly blood pressure task Care Plan Weekly blood pressure task No Piedad Sotelo [place] Patient has chronic kidney disease Care Plan Patient has chronic kidney disease No Piedad Sotelo [place] Patient has chronic kidney disease Care Plan Patient has chronic kidney disease No Piedad Sotelo MA Weekly blood pressure task Care Plan Weekly blood pressure task No Homa Rashid MA Weekly blood pressure task Care Plan Weekly blood pressure task No Homa Rashid [place] Patient has chronic kidney disease Care Plan Patient has chronic kidney disease No Homa Rashid [place] Patient has chronic kidney disease Care Plan Patient has chronic kidney disease No Homa Rashid MA Weekly blood pressure task Care Plan Weekly blood pressure task No Homa Rashid MA Weekly blood pressure task Care Plan Weekly blood pressure task No Homa Rashid [place] Patient has chronic kidney disease Care Plan Patient has chronic kidney disease No Homa Rashid [place] Patient has chronic kidney disease Care Plan Patient has chronic kidney disease No Homa Rashid MA Weekly blood pressure task Care Plan Weekly blood pressure task No Jina Royal RN Weekly blood pressure task Care Plan Weekly blood pressure task No Jina Royal RN Patient has chronic kidney disease Care Plan Patient has chronic kidney disease No Jina Royal RN Patient has chronic kidney disease Care Plan Patient has chronic kidney disease No Jina Royal RN documented as of this encounter Procedures Procedure Name Priority Date/Time Associated Diagnosis Comments POCT GLUCOSE Routine 01/22/2025 8:46 AM EST Type 2 diabetes mellitus with diabetic polyneuropathy, without long-term current use of insulin (HCC) documented in this encounter Results * POCT Glucose (01/22/2025 8:46 AM EST) [facility] Glucose Blood, POC 155 60 - 200 mg/dL QC Media Lot # [id number] Lot# Expiration Date Blood Capillary blood specimen / Unknown 01/22/2025 8:46 AM EST Leandro Magallon MD POINT OF CARE TEST ENTER/EDIT ORDERABLES Final Result documented in this encounter Visit Diagnoses Diagnosis Primary hypertension- Primary Unspecified essential hypertension Type 2 diabetes mellitus with diabetic polyneuropathy, without long-term current use of insulin (HCC) Type 2 diabetes mellitus with diabetic polyneuropathy (HCC) documented in this encounter Additional Health Concerns Active Problems Noted Date Diagnosed Date Help patients manage their type 2 diabetes 12/18 Weekly blood pressure task 12/18/2024 Help patients manage their type 2 diabetes 12/18 Patient has chronic kidney disease 12/18/2024 Weekly blood pressure task 12/18/2024 Patient has chronic kidney disease 12/18/2024 Weekly blood pressure task 12/23/2024 Weekly blood pressure task 12/23/2024 Patient has chronic kidney disease 12/23/2024 Patient has chronic kidney disease 12/23/2024 Weekly blood pressure task 01/21/2025 Weekly blood pressure task 01/21/2025 Patient has chronic kidney disease 01/21/2025 Patient has chronic kidney disease 01/21/2025 Weekly blood pressure task 01/21/2025 Weekly blood pressure task 01/21/2025 Patient has chronic kidney disease 01/21/2025 Patient has chronic kidney disease 01/21/2025 Weekly blood pressure task 01/22/2025 Weekly blood pressure task 01/22/2025 Patient has chronic kidney disease 01/22/2025 Patient has chronic kidney disease 01/22/2025 Assessment Noted Time PHQ-9 Depression Total Score: 2 01/23/20 25 8:54 AM EST documented as of this encounter Care Teams Svp Group Director Relationship Specialty Start Date End Date Leandro Moura MD [address] [place] [address] PCP - General Internal Medicine 06/28/19 documented as of this encounter
--- OUTSIDE RECORDS SUMMARY | 2025-01-22 09:41 | XMS_ITS | Encounter Summary ---
Author Organization [employer] Address [address] [facility] 7t [place] [address] Care Team Providers Care Road Maker Name Role Phone Leandro Moura MD Primary Care Prov ider Encounter Details Date Type Department Care Team (Late st Contact Info) Description 07/22/2024 Telephone [facility] MEDICINE [address] [place] [address] Leandro Moura MD [address] [place] [address] Social History Tobacco Use Types Packs/Day Years [...] Info) Description 03/03/2025 9:30 AM EST Telemedicine [facility] MED & PEDS [address] [place] [address] Leandro Moura MD [address] [place] [address] 04/01/2025 9:30 AM EST Procedure Visit [facility] MEDICINE [address] [place] [address] Hailey Turcios, CN [address] [place] [address] documented as of this encounter Visit Diagnoses Not on filedocumented in this encounter Additional Health Concerns Assessment Noted Time PHQ-9 Depression Total Score: 4 02/28/19 25 10:04 AM EST documented as of this encounter Care Teams Road Maker Relationship Specialty Start Date End Date Leandro Moura MD [address] [place] [address] PCP - General Internal Medicine 06/28/19 documented as of this encounter
--- OUTSIDE RECORDS SUMMARY | 2025-01-22 09:41 | XMS_ITS | Encounter Summary ---
Author Organization [employer] Address [address] [facility] [address] 7[address] [place] [address] Care Team Providers Care Prn Occupational Therapist Name Role Phone Leandro Moura MD Primary Care Prov ider Encounter Details Date Type Department Care Team (Late st Contact Info) Description 07/17/2023 Telephone [facility] MEDICINE [address] [place] [address] Leandro Moura MD [address] [place] [address] Social History Tobacco Use Types Packs/Day Years [...] 03/03/2025 9:30 AM EST Telemedicine [facility] MED & PEDS [address] [place] [address] Leandro Moura MD [address] [place] [address] 04/01/2025 9:30 AM EST Procedure Visit [facility] MEDICINE [address] [place] [address] Hailey Turcios CNM [address] [place], [place] [phone] documented as of this encounter Visit Diagnoses Not on filedocumented in this encounter Additional Health Concerns Assessment Noted Time PHQ-9 Depression Total Score: 17 024 8:56 AM EST documented as of this encounter Care Teams Prn Occupational Therapist Relationship Specialty Start Date End Date Leandro Moura MD [address] [place] [address] PCP - General Internal Medicine 06/28/19 documented as of this encounter
--- OUTSIDE RECORDS SUMMARY | 2025-01-22 09:41 | XMS_ITS | Encounter Summary ---
Author Organization [employer] Address [address] [facility] 7t [place] [address] Care Team Providers Care Investigator Internal Affairs Name Role Phone Leandro Moura MD Primary Care Prov ider Encounter Details Date Type Department Care Team (Latest Contact Info) Description 01/22/2025 Travel Social History Tobacco Use Types Packs/Day Years [...] AM EDT documented as of this encounter Functional Status * Over the past 2 weeks, how often have you been bothered by any of the following problems? Question Answer Date of Assessment Author Patient Health Questionnaire-2 Score 2 01/06 8:54 AM Bridget Mullen MA * Little interest or pleasure in doing things Answer Date of Assessment Author Several days 01/22/2025 8:54 AM Jacquleine Mullen MA * Feeling down, depressed, or hopeless Answer Date of Assessment Author Several days 01/22/2025 8:54 AM Jacqueline Mullen MA * Trouble falling or staying asleep, [...] Mullen MA documented as of this encounter Plan of Treatment Upcoming Encounters Date Type Department Care Team (Late st Contact Info) Description 03/03/2025 9:30 AM EST Telemedicine [facility] CHC MED & PEDS [address] [place], [place] [phone] Leandro Moura MD [address] [place] [address] 04/01/2025 9:30 AM EST Procedure Visit [facility] MEDICINE [address] [place] [address] Hailey Turcios CNM [address] [place] [address] documented as of this encounter Goals Goal Patient Goal Type Associated Problems Recent Progress Patient-Stated? Author Help patients manage their type 2 diabetes Care Plan Help patients manage their type 2 diabetes No Ramsey Andraden, OD Weekly blood pressure task Care Plan Weekly blood pressure task No RaymondRamseyn, OD Help patients manage their type 2 diabetes Care Plan Help patients manage their type 2 diabetes No Raymond, Yenny, OD Patient has chronic kidney disease [...] Care Plan Patient has chronic kidney disease Jina Real RN documented as of this encounter Visit Diagnoses Not on filedocumented in this encounter Additional Health Concerns Active [...] documented as of this encounter Care Teams Investigator Internal Affairs Relationship Specialty Start Date End Date Leandro Moura MD [address] [place] [address] PCP - General Internal Medicine 06/28/19 documented as of this encounter
--- OUTSIDE RECORDS SUMMARY | 2025-01-22 09:41 | XMS_ITS | Clinical Summary ---
Author Organization [facility] Address [address] [place] [address] Care Team Providers Care Progressive Care Unit Registered Nurse Name Role Phone Unavailable Primary Care Provider [...] Last Done Comments Breast Cancer Screening 1960 Colorectal Cancer Screening: Colonoscopy 1960 DTaP,Tdap,and Td Vaccines (1 - Tdap) 1977 Pneumococcal Vaccine: 50+ Ye ars (1 of 1 - PCV) 2008 Zoster Vaccines (1 of 2) 2008 Hepatitis C Screening 03/03/2023 Osteoporosis Screening (Bone Density Screening) 03/03/2023 Social Influencers of Health Screening 03/03/2023 Falls Risk Assessment 06/15/2023 Depression Screening 02/07/2024 COVID-19 Vaccine (1 - 2024-2 6 season) 2024 Influenza Vaccine (#1) 2024 RSV [...]
--- OUTSIDE RECORDS SUMMARY | 2025-01-22 09:41 | XMS_ITS | Encounter Summary ---
Author Organization [employer] Address [address] [facility] 7t [place] [address] Care Team Providers Care Area Field Worker Name Role Phone Leandro Moura MD Primary Care Prov ider Reason for Visit * Reason Comments Med Refill Encounter Details Date Type Department Care Team ([facility] st Contact Info) Description 10/27/2023 Refill [facility] MED & PEDS [address] [place], [place] [phone] Leandro Moura MD [address] [place] [address] Social History Tobacco Use Types Packs/Day Years [...] Info) Description 03/03/2025 9:30 AM EST Telemedicine [facility] MED & PEDS [address] [place] [address] Leandro Moura MD [address] [place] [address] 04/01/2025 9:30 AM EST Procedure Visit [facility] MEDICINE [address] [place], [place] [phone] Hailey Turcios CNM [address] [place], [place] [phone] documented as of this encounter Visit Diagnoses Not on filedocumented in this encounter Additional Health Concerns Assessment Noted Time PHQ-9 Depression Total Score: 17 024 8:56 AM EST documented as of this encounter Care Teams Area Field Worker Relationship Specialty Start Date End Date Leandro Moura MD [address] [place] [address] PCP - General Internal Medicine 06/28/19 documented as of this encounter
--- OUTSIDE RECORDS SUMMARY | 2025-01-22 09:41 | XMS_ITS | Encounter Summary ---
Author Organization [employer] Address [address] [facility] 7t [place] [address] Care Team Providers Care Ultra Sound Technician Name Role Phone Leandro Moura MD Primary Care Prov ider Reason for Visit * Reason Comments Med Refill Encounter Details Date Type Department Care Team ([facility] st Contact Info) Description 08/18/2023 Refill [facility] CHC MED & PEDS [address] [place], [place] [phone] Leandro Moura MD [address] [place] [address] Mixed hyperlipidemia Social History Tobacco Use Types [...] Info) Description 03/03/2025 9:30 AM EST Telemedicine [facility] CHC MED & PEDS [address] [place] [address] Leandro Moura MD [address] [place] [address] 04/01/2025 9:30 AM EST Procedure Visit [facility] MEDICINE [address] [place], [place] [phone] Hailey Turcios CNM [address] [place] [address] documented as of this encounter Visit Diagnoses Diagnosis Mixed hyperlipidemia documented in this encounter Additional Health Concerns Assessment Noted Time PHQ-9 Depression Total Score: 17 024 8:56 AM EST documented as of this encounter Care Teams Ultra Sound Technician Relationship Specialty Start Date End Date Leandro Moura MD [address] [place] [address] PCP - General Internal Medicine 06/28/19 documented as of this encounter
--- OUTSIDE RECORDS SUMMARY | 2025-01-22 09:41 | XMS_ITS | Encounter Summary ---
Author Organization [employer] Address [address] [facility] 7t [place] [address] Care Team Providers Care Pcat Instructor Name Role Phone Leandro Moura MD Primary Care Prov ider Encounter Details Date Type Department Care Team (Late Contact Info) Description 09/14/2022 Orders Only [facility] MED & PEDS [address] [place] [address] Leandro Moura MD [address] [place] [address] Social History Tobacco Use Types Packs/Day Years [...] Department Care Team (Late Contact Info) Description 03/03/2025 9:30 AM EST Telemedicine [facility] MED & PEDS [address] [place] [address] Leandro Moura MD [address] [place], [place] [phone] 04/01/2025 9:30 AM EST Procedure Visit [facility] MEDICINE [address] [place], [place] [phone] Hailey Turcios CNM [address] [place], [place] [phone] documented as of this encounter Procedures Procedure Name Priority Date/Time Associated Diagnosis Comments HM COLONOSCOPY Routine 04/15/2020 COLONOSCOPY Routine 04/15/2020 documented in this encounter Results * Hm Colonoscopy (04/15/2020) Colonoscopy Normal Normal us Leandro Magallon MD HEALTH MAINTENANCE Final Result [...] documented as of this encounter Care Teams Pcat Instructor Relationship Specialty Start Date End Date Leandro Moura MD [address] [place] [address] PCP - General Internal Medicine 06/28/19 documented as of this encounter
--- OUTSIDE RECORDS SUMMARY | 2025-01-22 09:41 | XMS_ITS | Encounter Summary ---
Author Organization [employer] Address 75 [facility] 7t [place] [address] Care Team Providers Care Inspector Canned Food Reconditioning Name Role Phone Leandro Moura MD Primary Care Prov ider Reason for Visit * Reason Comments Med Refill Encounter Details Date Type Department Care Team (Late st Contact Info) Description 07/19/2023 Refill [facility] MEDICINE [address] [place] [address] Leandro Moura MD [address] [place] [address] Gastroesophageal reflux disease without esophagitis Social History [...] does not meet the disqualification for her [employer] Security Disability Exception. She needs t have [...] Info) Description 03/03/2025 9:30 AM EST Telemedicine [facility] CHC MED & PEDS 505 [place] [address] Leandro Moura MD [address] [place] [address] 04/01/2025 9:30 AM EST Procedure Visit [facility] MEDICINE 230 [place] [address] Hailey Turcios CNM 230 [place] [address] documented as of this encounter Visit Diagnoses Diagnosis Gastroesophageal reflux disease without esophagitis Esophageal reflux documented in this encounter Additional Health Concerns Assessment Noted Time PHQ-9 Depression Total Score: 17 024 8:56 AM EST documented as of this encounter Care Teams Inspector Canned Food Reconditioning Relationship Specialty Start Date End Date Leandro Moura MD [address] [place] [address] PCP - General Internal Medicine 06/28/19 documented as of this encounter
--- OUTSIDE RECORDS SUMMARY | 2025-01-22 09:41 | XMS_ITS | Encounter Summary ---
Author Organization [employer] Address 75 [facility] 7t [place] [address] Care Team Providers Care Facilities Maintenance Technician Name Role Phone Leandro Moura MD Primary Care Prov ider Reason for Visit * Reason Onset Date Comments Chart Prep 01/21/2025 Encounter Details Date Type Department Care Team ([facility] st Contact Info) Description 01/21/2025 Telephone [facility] CHC MED & PEDS [address] [place] [address] Leandro Moura MD 505 [place] [address] Chart Prep Social History Tobacco Use Types Packs/Day Years [...] encounter Miscellaneous Notes * Telephone Encounter - Homa Rashid [place] - 01/21/2025 1:26 PM EST Chart Prep Labs: done Images: done Referrals: complete Vaccines due: due Screenings: not applicable Overdue care gaps: A1c, Glucose, SBIRT, SDOH, PHQ-9, and Tobacco documented in this encounter Plan of Treatment Upcoming Encounters Date Type Department Care Team (Late st Contact Info) Description 03/03/2025 9:30 AM EST Telemedicine [facility] CHC MED & PEDS [address] [place] [address] Leandro Moura MD 505 [place] [address] 04/01/2025 9:30 AM EST Procedure Visit [facility] MEDICINE [address] [place] [address] Hailey Turcios CNM [address] [place] [address] documented as of this encounter Goals Goal Patient Goal Type Associated Problems Recent Progress Patient-Stated? Author Help patients manage their type 2 diabetes Care Plan Help patients manage their type 2 diabetes No Ramsey Andraden, OD Weekly blood pressure task Care Plan Weekly blood pressure task No Raymond Yenny, OD Help patients manage their type 2 diabetes Care Plan Help patients manage their type 2 diabetes No Raymond Yenny, OD Patient has chronic kidney disease Care Plan Patient has chronic kidney disease No RaymondRamseyn, OD Weekly blood pressure task Care Plan Weekly blood pressure task No RaymondRamseyn, OD Patient has chronic kidney disease Care [...] Plan Patient has chronic kidney disease No oHma Rashid MA documented as of this encounter Visit Diagnoses [...] 01/21/2025 Patient has chronic kidney disease 01/21/2025 Assessment Noted Time PHQ-9 Depression Total Score: 4 02/28/19 25 10:04 AM EST documented as of this encounter Care Teams Facilities Maintenance Technician Relationship Specialty Start Date End Date Leandro Moura MD [address] [place] [address] PCP - General Internal Medicine 06/28/19 documented as of this encounter
--- OUTSIDE RECORDS SUMMARY | 2025-01-22 09:41 | XMS_ITS | Encounter Summary ---
Author Organization [employer] Address 75 [facility] 7t [place] [address] Care Team Providers Care Rate Manager Name Role Phone Leandro Moura MD Primary Care Prov ider Reason for Visit * Reason Onset Date Comments Uber request 06/22/2023 Encounter Details Date Type Department Care Team ([facility] Contact Info) Description 06/22/2023 Telephone [facility] MED & PEDS 505 [place], [place] [phone] Leandro Moura MD 505 [place] [address] Uber request Social History Tobacco Use Types [...] Home Address verified: Y/N: Yes Pt phone: [phone] Provider name or facility name[facility] Facility Address: [address] [place] [address] Escort needed: Y/N: No Do you have a wheelchair: Y/N: No Appt time and date: 06/26/23 @ 11 am documented in this encounter Plan of Treatment Upcoming Encounters Date Type Department Care Team (Late st Contact Info) Description 03/03/2025 9:30 AM EST Telemedicine [facility] CHC MED & PEDS 505 [place], [place] [phone] Leandro Moura MD 505 [place] [address] 04/01/2025 9:30 AM EST Procedure Visit [facility] MEDICINE 230 [place] [address] Hailey Turcios CNM 230 [place] [address] documented as of this encounter Visit Diagnoses Not on filedocumented in this encounter Additional Health Concerns Assessment Noted Time PHQ-9 Depression Total Score: 17 024 8:56 AM EST documented as of this encounter Care Teams Rate Manager Relationship Specialty Start Date End Date Leandro Moura MD [address] [place] [address] PCP - General Internal Medicine 06/28/19 documented as of this encounter
--- OUTSIDE RECORDS SUMMARY | 2025-01-22 09:41 | XMS_ITS | Encounter Summary ---
Author Organization [employer] Address 75 [facility] 7t [place] [address] Care Team Providers Care Hotel Manager Name Role Phone Leandro Moura MD Primary Care Prov ider Reason for Visit * Reason Onset Date Comments Pre OP 2023 Encounter Details Date Type Department Care Team ([facility] st Contact Info) Description 2023 Telephone [facility] CHC MED & PEDS 505 [place] [address] Leandro Moura MD 505 [place] [address] Pre OP Social History Tobacco Use Types [...] rajput Facility name: [facility] Surgeon's office number: [phone] ext [facility] Surgeon's office fax number: [phone] Contact name (person you spoke with): Clarissa Last office note from surgeon requested: yes documented in this encounter Plan of Treatment Upcoming Encounters Date Type Department Care Team ([facility] st Contact Info) Description 03/03/2025 9:30 AM EST Telemedicine [facility] CHC MED & PEDS 505 [place], [place] [phone] Leandro Moura MD 505 [place] [address] 04/01/2025 9:30 AM EST Procedure Visit [facility] MEDICINE 230 [place], [place] [phone] Hailey Turcios, RIVER 230 [place], [place] [phone] documented as of this encounter Visit Diagnoses Not on filedocumented in this encounter Additional Health Concerns Assessment Noted Time PHQ-9 Depression Total Score: 17 024 8:56 AM EST documented as of this encounter Care Teams Hotel Manager Relationship Specialty Start Date End Date Leandro Moura MD [address] [place] [address] [place] [address] PCP - General Internal Medicine 06/28/19 documented as of this encounter
--- OUTSIDE RECORDS SUMMARY | 2025-01-22 09:41 | XMS_ITS | Encounter Summary ---
Author Organization [employer] Address 75 [facility] 7t [place] [address] Care Team Providers Care Stereotyper Helper Name Role Phone Leandro Moura MD Primary Care Prov ider Reason for Visit * Reason Onset Date Comments Durable Medical Equipment 12/16/2024 Encounter Details Date Type Department Care Team ([facility] st Contact Info) Description 12/16/2024 Telephone [facility] CHC MED & PEDS 505 [place], [place] [phone] Leandro Moura MD 505 [place] [address] Durable Medical Equipment Social History Tobacco Use [...] Telephone Encounter - Bindu Segura LPN - 12/16/2024 12:03 PM EST Please review message below and advise, Thank you. * Telephone Encounter - Omar Oliveira - 12/16/2024 11:28 AM EST Tc from pt requesting Grab bars for the bed. A recliner. Pull ups size XL. Any questions contact pt at [phone] documented in this encounter Plan of Treatment Upcoming Encounters Date Type Department Care Team (Late st Contact Info) Description 03/03/2025 9:30 AM EST Telemedicine [facility] CHC MED & PEDS 505 [place] [address] Leandro Moura MD 505 [place], [place] [phone] 04/01/2025 9:30 AM EST Procedure Visit [facility] MEDICINE 230 [place], [place] [phone] Hailey Turcios CNM 230 [place] [address] documented as of this encounter Visit Diagnoses Not on filedocumented in this encounter Additional Health Concerns Assessment Noted Time PHQ-9 Depression Total Score: 4 02/28/19 25 10:04 AM EST documented as of this encounter Care Teams Stereotyper Helper Relationship Specialty Start Date End Date Leandro Moura MD [address] [place] [address] [place] [address] PCP - General Internal Medicine 06/28/19 documented as of this encounter
--- OUTSIDE RECORDS SUMMARY | 2025-01-22 09:41 | XMS_ITS | Encounter Summary ---
Author Organization [employer] Address 75 [facility] 7t [place] [address] Care Team Providers Care Overhauler Helper Name Role Phone Leandro Moura MD Primary Care Prov ider Reason for Visit * Reason Onset Date Comments Referral 07/14/2023 Encounter Details Date Type Department Care Team ([facility] st Contact Info) Description 07/14/2023 Telephone [facility] MEDICINE [address] [place] [address] Leandro Moura MD 505 [place] [address] Referral Social History Tobacco Use Types Packs/Day [...] Info) Description 03/03/2025 9:30 AM EST Telemedicine [facility] CHC MED & PEDS 505 [place] [address] Leandro Moura MD 505 [place] [address] 04/01/2025 9:30 AM EST Procedure Visit [facility] MEDICINE [address] [place] [address] Hailey Turcios CNM [address] [place] [address] documented as of this encounter Visit Diagnoses Not on filedocumented in this encounter Additional Health Concerns Assessment Noted Time PHQ-9 Depression Total Score: 17 024 8:56 AM EST documented as of this encounter Care Teams Overhauler Helper Relationship Specialty Start Date End Date Leandro Morua MD 505 [place] [address] PCP - General Internal Medicine 06/28/19 documented as of this encounter
--- OUTSIDE RECORDS SUMMARY | 2025-01-22 09:41 | XMS_ITS | Encounter Summary ---
Author Organization [employer] Address 75 [facility] 7t [place] [address] Care Team Providers Care Hyster Driver Name Role Phone Leandro Moura MD Primary Care Prov ider Reason for Visit * Reason Onset Date Comments [facility] 07/18/2023 Encounter Details Date Type Department Care Team ([facility] st Contact Info) Description 07/18/2023 Telephone [facility] MEDICINE [address] [place] [address] Leandro Moura MD 505 [place] [address] [facility] Social History Tobacco Use Types Packs/Day [...] for appt today, pt at daughter address; [address] [place] [address] Phone confirmed documented in this encounter Plan of Treatment Upcoming Encounters Date Type Department Care Team (Late st Contact Info) Description 03/03/2025 9:30 AM EST Telemedicine [facility] CHC MED & PEDS 505 [place] [address] Leandro Moura MD 505 [place] [address] 04/01/2025 9:30 AM EST Procedure Visit [facility] MEDICINE [address] [place] [address] Hailey Turcios CNM 230 [place] [address] documented as of this encounter Visit Diagnoses Not on filedocumented in this encounter Additional Health Concerns Assessment Noted Time PHQ-9 Depression Total Score: 17 024 8:56 AM EST documented as of this encounter Care Teams Hyster Driver Relationship Specialty Start Date End Date Leandro Moura MD 505 [place] [address] PCP - General Internal Medicine 06/28/19 documented as of this encounter
--- OUTSIDE RECORDS SUMMARY | 2025-01-22 09:41 | XMS_ITS | Encounter Summary ---
Author Organization [employer] Address [address] [facility] [address] 7t [place] [address] Care Team Providers Care Pressure Steamer Tender Name Role Phone Leandro Moura MD Primary Care Prov ider Encounter Details Date Type Department Care Team (Late st Contact Info) Description 07/17/2023 Telephone [facility] MEDICINE 230 [place] [address] Leandro Moura MD 505 [place] [address] Social History Tobacco Use Types Packs/Day Years [...] 03/03/2025 9:30 AM EST Telemedicine [facility] CHC MED & PEDS 505 [place] [address] Leandro Moura MD 505 [place] [address] 04/01/2025 9:30 AM EST Procedure Visit [facility] MEDICINE [address] [place] [address] Hailey Turcios CNM [address] [place] [address] documented as of this encounter Visit Diagnoses Not on filedocumented in this encounter Additional Health Concerns Assessment Noted Time PHQ-9 Depression Total Score: 17 024 8:56 AM EST documented as of this encounter Care Teams Pressure Steamer Tender Relationship Specialty Start Date End Date Leandro Moura MD 505 [place] [address] PCP - General Internal Medicine 06/28/19 documented as of this encounter
--- OUTSIDE RECORDS SUMMARY | 2025-01-22 09:41 | XMS_ITS | Encounter Summary ---
Author Organization [employer] Address 75 [facility] 7t [place] [address] Care Team Providers Care Tie Maker Name Role Phone Leandro Moura MD Primary Care Prov ider Reason for Visit * Reason Comments Med Refill Encounter Details Date Type Department Care Team ([facility] st Contact Info) Description 10/16/2023 Refill [facility] CHC MED & PEDS 505 [place], [place] [phone] Leandro Moura MD 505 [place] [address] Social History Tobacco Use Types Packs/Day Years [...] Info) Description 03/03/2025 9:30 AM EST Telemedicine [facility] CHC MED & PEDS 505 [place] [address] Leandro Moura MD 505 [place] [address] 04/01/2025 9:30 AM EST Procedure Visit [facility] MEDICINE 230 [place], [place] [phone] Hailey Turcios CNM 230 [place], [place] [phone] documented as of this encounter Visit Diagnoses Not on filedocumented in this encounter Additional Health Concerns Assessment Noted Time PHQ-9 Depression Total Score: 17 024 8:56 AM EST documented as of this encounter Care Teams Tie Maker Relationship Specialty Start Date End Date Leandro Moura MD 505 [place] [address] PCP - General Internal Medicine 06/28/19 documented as of this encounter
--- OUTSIDE RECORDS SUMMARY | 2025-01-22 09:41 | XMS_ITS | Encounter Summary ---
Author Organization [employer] [facility] Address 75 [facility] 7t [place] [address] Care Team Providers Care Community Relations Manager Name Role Phone Leandro Moura MD Primary Care Prov ider Encounter Details Date Type Department Care Team (Latest Contact Info) Description 12/18/2018 Abstract [facility] CONVERSIONS Dental, Provider, DDS Social History Tobacco [...] Info) Description 03/03/2025 9:30 AM EST Telemedicine [facility] CHC MED & PEDS 505 [place] [address] Leandro Moura MD 505 [place] [address] 04/01/2025 9:30 AM EST Procedure Visit [facility] MEDICINE 230 [place] [address] Hailey Turcios CNM 230 [place] [address] documented as of this encounter Visit Diagnoses Not on filedocumented in this encounter Care Teams Community Relations Manager Relationship Specialty Start Date End Date Leandro Moura MD [address] [place] [address] PCP - General Internal Medicine 06/28/19 documented as of this encounter
--- OUTSIDE RECORDS SUMMARY | 2025-01-22 09:41 | XMS_ITS | Encounter Summary ---
Author Organization [employer] Address 75 [facility] 7t [place] [address] Care Team Providers Care Rail Car Welder Name Role Phone Leandro Moura MD Primary Care Prov ider Encounter Details Date Type Department Care Team (Late Contact Info) Description 09/20/2022 Orders Only [facility] MED & PEDS 505 [place], [place] [phone] Rhiannon He LPN Social History Tobacco Use [...] Info) Description 03/03/2025 9:30 AM EST Telemedicine [facility] MED & PEDS 505 [place], [place] [phone] Leandro Moura MD 505 [place] [address] 04/01/2025 9:30 AM EST Procedure Visit [facility] MEDICINE 230 [place] [address] Hailey Turcios, CNM [address] [place] [address] documented as of this encounter Visit Diagnoses Not on filedocumented in this encounter Additional Health Concerns Assessment Noted Time PHQ-9 Depression Total Score: 27 023 9:58 AM EDT documented as of this encounter Care Teams Rail Car Welder Relationship Specialty Start Date End Date Leandro Moura MD [address] [place] [address] PCP - General Internal Medicine 06/28/19 documented as of this encounter
--- OUTSIDE RECORDS SUMMARY | 2025-01-22 09:41 | XMS_ITS | Encounter Summary ---
Author Organization [employer] Address 75 [facility] 7t [place] [address] Care Team Providers Care Endoscopy Technican Name Role Phone Leandro Moura MD Primary Care Prov ider Reason for Visit * Reason Onset Date Comments Transportation 01/22/2025 Encounter Details Date Type Department Care Team ([facility] st Contact Info) Description 01/22/2025 Telephone [facility] CHC MED & PEDS 505 [place], [place] [phone] Leandro Moura MD 505 [place] [address] Transportation Social History Tobacco Use Types Packs/Day Years [...] 8:54 AM Jacqueline Mullen MA * Feeling down, depressed, or [...] Mullen [place] documented as of this encounter Miscellaneous Notes * Telephone Encounter - Jina Royal RN - 01/22/2025 9:22 AM EST Pt approached FD and states needs Uber home. Pt states that Uber was arranged for pt to go to clinic and showed phone call where she was called to set up Uber from area code [address]. Pt stating needing Uber home. Advised this time will set up Uber for pt to transfer home, but advised that pt will need to verify ride home with person who sets up ride before hand. Pt verbalized understanding and agreement with plan. documented in this encounter Plan of Treatment Upcoming Encounters Date Type Department Care Team (Late st Contact Info) Description 03/03/2025 9:30 AM EST Telemedicine [facility] CHC MED & PEDS 505 [place] [address] Leandro Moura MD 505 [place] [address] 04/01/2025 9:30 AM EST Procedure Visit [facility] MEDICINE 230 [place] [address] Hailey Turcios CNM [address] [place] [address] documented as of this encounter Goals Goal Patient Goal Type Associated Problems Recent Progress Patient-Stated? Author Help patients manage their type 2 diabetes Care Plan Help patients manage their type 2 diabetes No Raymond, Yenny, OD Weekly blood pressure task Care Plan Weekly blood pressure task No Raymond, Yenny, OD Help patients manage their type 2 diabetes Care Plan Help patients manage their type 2 diabetes No Raymond, Yenny, OD Patient has chronic kidney disease Care Plan Patient has chronic kidney disease No Raymond, Yenny, OD Weekly blood pressure task Care Plan Weekly blood pressure task No Raymond, Yenny, OD Patient has chronic kidney disease Care Plan Patient has chronic kidney disease No Raymond Yenny, OD Weekly blood pressure task Care Plan [...] Royal RN documented as of this encounter Visit [...] documented as of this encounter Care Teams Endoscopy Technican Relationship Specialty Start Date End Date Leandro Moura MD 505 [place] [address] PCP - General Internal Medicine 06/28/19 documented as of this encounter
--- OUTSIDE RECORDS SUMMARY | 2025-01-22 09:41 | XMS_ITS | Encounter Summary ---
Author Organization [facility] [facility] Address 75 [facility] 7t [place] [address] Care Team Providers Care Water Taxi Captain Name Role Phone Leandro Moura MD Primary Care Prov ider Encounter Details Date Type Department Care Team (Late Contact Info) Description 06/27/2022 Orders Only [facility] MED & PEDS 505 [place], [place] [phone] Loida Carey LPN Social History Tobacco Use [...] Info) Description 03/03/2025 9:30 AM EST Telemedicine [facility] MED & PEDS [address] [place], [place] [phone] Leandro Moura MD [address] [place] [address] 04/01/2025 9:30 AM EST Procedure Visit [facility] MEDICINE 230 [place], [place] [phone] Hailey Turcios CNM [address] [place], [place] [phone] documented as of this encounter Visit Diagnoses Not on filedocumented in this encounter Additional Health Concerns Assessment Noted Time PHQ-9 Depression Total Score: 27 023 9:58 AM EDT documented as of this encounter Care Teams Water Taxi Captain Relationship Specialty Start Date End Date Leandro Moura MD [address] [place] [address] PCP - General Internal Medicine 06/28/19 documented as of this encounter
--- OUTSIDE RECORDS SUMMARY | 2025-01-22 09:41 | XMS_ITS | Encounter Summary ---
Author Organization [employer] Address 75 [facility] 7t [place] [address] Care Team Providers Care Foundry Technician Name Role Phone Leandro Moura MD Primary Care Prov ider Reason for Visit * Reason Comments Med Refill Encounter Details Date Type Department Care Team ([facility] st Contact Info) Description 10/30/2023 Refill [facility] CHC MED & PEDS 505 [place], [place] [phone] Leandro Moura MD [address] [place] [address] Social History Tobacco Use Types Packs/Day Years [...] Info) Description 03/03/2025 9:30 AM EST Telemedicine [facility] CHC MED & PEDS [address] [place] [address] Leandro Moura MD [address] [place] [address] 04/01/2025 9:30 AM EST Procedure Visit [facility] MEDICINE [address] [place], [place] [phone] Hailey Turcios CNM [address] [place], [place] [phone] documented as of this encounter Visit Diagnoses Not on filedocumented in this encounter Additional Health Concerns Assessment Noted Time PHQ-9 Depression Total Score: 17 024 8:56 AM EST documented as of this encounter Care Teams Foundry Technician Relationship Specialty Start Date End Date Leandro Moura MD [address] [place] [address] PCP - General Internal Medicine 06/28/19 documented as of this encounter
--- OUTSIDE RECORDS SUMMARY | 2025-01-22 09:41 | XMS_ITS | Clinical Summary ---
Author Organization [employer] Address [address] [place] [address] Care Team Providers Care Motor Equipment Lieutenant Name Role Phone Leandro Moura MD Primary [...] OR CHEW 30 tablet 1 024 Active baclofen (Lioresal) 10 MG tabletIndication s:Chronic bilateral low back pain with bilateral sciatica Take 1 tablet (10 mg) by mouth 3 times daily. 270 tablet 3 024 Active DULoxetine (Cymbalta) [address] Li ns:Chronic pain syndrome Take 1 capsule (30 mg) by mouth 2 times daily. Do not crush or chew. 180 capsule 1 024 Active hydrOXYzine HCl (Atarax) 25 MG tablet Take 1 tablet (25 mg) by mouth if needed in the morning, at noon, and at bedtime for anxiety. 90 tablet 3 024 Active glucose blood (FREESTYLE LITE) test strip 1 each by Other route 3 times daily. 100 each 12 025 Active insulin pen needle (B-D UF III MINI PEN NEEDLES) 31G x 5 mm misc USE TO INJECT lantus DAILY 100 each 11 025 Active Blood Glucose Monitoring Suppl (FreeStyle [place] Lite) w/Device kit TEST BLOOD SUGAR THREE TIMES DAILY 1 kit 025 Active gabapentin (Neurontin) 300 MG capsuleIndicatio ns:Neuropathy TAKE ONE CAPSULE THREE TIMES DAILY 90 capsule 1 025 Active cyclobenzaprine (Flexeril) 10 MG tablet TAKE ONE TABLET THREE TIMES DAILY 30 tablet 2 025 Active Continuous Glucose Electronic Security Technician (FreeStyle Sánchez 2 [place]) deviceIndication s:Type 2 diabetes mellitus with diabetic polyneuropathy, without long-term current use of insulin (HCC) Scan sensor every 8 hours 1 each 025 Active Continuous Glucose Sensor (FreeStyle Sánchez 2 Sensor) miscIndications: Type 2 diabetes mellitus with diabetic polyneuropathy, without long-term current use of insulin (HCC) 1 Units every 14 (fourteen) days. 2 each 3 025 Active Continuous Glucose Electronic Security Technician (FreeStyle Sánchez 3 [place]) deviceIndication s:Type 2 diabetes mellitus with diabetic polyneuropathy, without long-term current use of insulin (HCC) 1 each Once per day. Use as directed for CGM 1 each 025 Active Continuous Glucose Sensor (FreeStyle Sánchez 3 Plus Sensor) miscIndications: Type 2 diabetes mellitus with diabetic polyneuropathy, without long-term current use of insulin (HCC) 1 each every 15 days. Apply 1 every 15 days as directed for CGM 2 each 01/11/20 25 8:51 AM EST 025 Active simvastatin (Zocor) 20 MG tabletIndication s:Mixed hyperlipidemia TAKE ONE TABLET EVERY NIGHT AT BEDTIME 90 tablet 1 025 Active dextran 70-hypromellose PF (Artificial Tears PF) 0.1-0.3 % ophthalmic solutionIndicati ons:Meibomian gland disease, unspecified laterality Administer 1 drop into both eyes 4 times daily. 70 each 11 Active Aspirin Adult Low Strength 81 MG EC tabletIndication s:Essential (primary) hypertension TAKE EVERY NIGHT AT BEDTIME [...] 3 Active omeprazole (PriLOSEC) [address] capsuleIndicatio ns:Gastroesophag eal reflux disease without esophagitis TAKE ONE CAPSULE EVERY MORNING BEFORE BREAKFAST 90 capsule 3 01/11/20 25 8:51 AM EST 025 Active amitriptyline (Elavil) 50 MG tablet TAKE ONE TABLET EVERY NIGHT AT BEDTIME 30 tablet 2 01/11/20 25 8:51 AM EST 025 Active losartan (Cozaar) 25 MG tablet TAKE ONE TABLET AT NOON 90 tablet 3 Active metFORMIN (Glucophage) 1000 MG tabletIndication s:Type 2 diabetes mellitus with diabetic polyneuropathy, without long-term current use of insulin (HCC) TAKE ONE TABLET IN THE MORNING AND EVENING WITH MEALS 180 tablet 3 Active glipiZIDE (Glucotrol) 10 MG tabletIndication s:Type 2 diabetes mellitus with diabetic polyneuropathy, without long-term current use of insulin (HCC) TAKE ONE TABLET TWICE DAILY BEFORE MEALS 180 tablet 1 Active polyvinyl alcohol (Liquifilm Tears) 1.4 % ophthalmic solution PLACE ONE DROP IN EACH EYE FOUR TIMES DAILY Active insulin glargine (Lantus) 100 UNIT/ML pen Inject 30 Units under the skin at bedtime. 9 mL 2 025 2025 Active empagliflozin (Jardiance) 25 MG Take 1 tablet (25 mg) by mouth in the morning. 30 tablet 11 Active Dulaglutide (Trulicity) 4.5 MG/0.5ML solution auto-injectorInd ications:Type 2 diabetes mellitus with diabetic polyneuropathy (HCC) Inject 4.5 mg under the skin 1 (one) time per week. 2 mL 025 Active Trulicity 4.5 MG/0.5ML solution auto-injectorInd ications:Type 2 diabetes mellitus with diabetic polyneuropathy (HCC) INJECT ONE PEN (=4.5MG) SUBCUTANEOUSLY ONCE A WEEK DIRECTED 2 mL 01/21/20 25 8:22 AM EST 2024 Discontinued(R eorder (will not trigger notification to Pharmacy)) insulin glargine (Lantus) 100 UNIT/ML pen Inject 30 Units under the skin at bedtime. 9 mL 2 12/26/19 25 9:23 AM EST 2024 Discontinued(R eorder (will not trigger notification to Pharmacy)) Jardiance 25 MG TAKE ONE TABLET EVERY MORNING 30 tablet 01/11/20 25 8:51 AM EST 2024 Discontinued(R eorder (will not trigger notification to Pharmacy)) Active Problems Problem Noted Date Diagnosed Date Chronic neck pain 11/13/2024 Assessment & Plan (11/13/2024 11:41 AM EDT): Will order DME for neck pillow, follow up PT/ortho Anxiety 07/10/2023 Assessment & Plan (07/10/2023 9:54 [...] Center 05/05/2022 10:15 AM Leandro Magallon MD [facility] Type 2 diabetes mellitus wit h diabetic polyneuropathy, without long-term current use of insulin 02/04/2022 Assessment & Plan (01/22/2025 8:58 AM EST): Patient is on lantus 30 units, metformin, jardiance and trulicity 4.5, will order new A1c, will discuss if short acting insulin needed on next appointment Assessment & Plan (11/13/2024 11:38 AM EDT): Not at target, encouraged low carb/no sugar diet, will increase lantus to 30 units, continue trulicity, jardiance and glipizide, follow up in 3 months Assessment & Plan (07/10/2024 1:06 PM EDT): [...] placed Primary hypertension 02/04/2022 Assessment & Plan (01/22/2025 8:57 AM EST): Controlled, keep low sodium diet and exercise as tolerated, keep blood pressure log, target <140/90, follow up in 3 months Assessment & Plan (11/13/2024 11:35 AM EDT): Controlled, keep low sodium diet and exercise as tolerated, keep blood pressure log, target <130/80 Assessment & Plan (07/10/2024 1:10 PM EDT): [...] target ldl<70 Mood disorder 05/01/2017 Morbid obesity (CMS/HCC) 05/01/2017 Obstructive sleep apnea syndrome 05/01/2017 Assessment [...] Encounters Date Type Department Care Team Description 01/22/2025 8:30 AM EST Office Visit [facility] [address] [place] [address] Leandro Moura MD Primary hypertension (Primary Dx); Type 2 diabetes mellitus with diabetic polyneuropathy, without long-term current use of insulin (HCC); Type 2 diabetes mellitus with diabetic polyneuropathy (HCC) 01/22/2025 Telephone [facility] [address] [place] [address] Leandro Moura MD Transportation 01/22/2025 Travel 01/21/2025 Telephone [facility] [address] [place] [address] Leandro Moura MD Chart Prep 12/23/2024 Telephone [facility] [address] [place] [address] Piedad Sotelo [place] 12/18/2024 9:30 AM EST Office Visit [facility] [address] [place] [address] Yenny Andrade, OD Type 2 diabetes mellitus without ophthalmic manifestations (HCC) (Primary Dx); Epiretinal membrane (ERM) of left eye; 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; Meibomian gland disease, unspecified laterality; Pseudophakia of both eyes; Presbyopia 12/18/2024 Travel 12/16/2024 Telephone [facility] [address] [place] [address] Leandro Moura MD Durable Medical Equipment 12/10/2024 Refill [facility] [address] [place], [place] [phone] Leandro Moura MD Type 2 diabetes mellitus with diabetic polyneuropathy, without long-term current use of insulin ([facility]) 12/09/2024 Refill [facility] [address] [place] [address] Leandro Moura MD Type 2 diabetes mellitus with diabetic polyneuropathy, without long-term current use of insulin ([facility]) 12/06/2024 Refill [facility] [address] [place] [address] Leandro Moura MD 11/08/2024 Telephone [facility] [address] [place] [address] Leandro Moura MD Durable Medical Equipment 11/08/2024 Telephone [facility] [address] [place] [address] Leandro Moura MD letter 11/08/2024 Refill [facility] [address] [place] [address] Leandro Moura MD 11/05/2024 Orders Only [facility] [address] [place] [address] Leandro Moura MD 10/23/2024 9:00 AM EDT Telemedicine [facility] [address] [place] [address] Leandro Moura MD Type 2 diabetes mellitus with diabetic polyneuropathy, without long-term current use of insulin ([facility]) (Primary Dx); Primary hypertension; Dietary counseling; Exercise counseling; Morbid obesity ([facility]/HCC); Chronic neck pain 10/23/2024 Travel from Last 3 Months Immunizations Immunization Administration [...] 20 01/22/2025 8:44 AM EST Oxygen Saturation 98% 02/29/2024 10:03 AM EST Inhaled Oxygen Concentration - - Weight 85.3 kg (188 lb) 01/22/2025 8:44 AM EST Height 152.4 cm (5') 01/22/2025 8:44 AM EST Body Mass Index 36.72 01/22/2025 8:44 AM EST Plan of Treatment Upcoming Encounters Date Type Department Care Team (Late st Contact Info) Description 03/03/2025 9:30 AM EST Telemedicine [facility] [address] [place] [address] Leandro Moura MD [address] [place] [address] 04/01/2025 9:30 AM EST Procedure Visit [facility] [address] [place] [address] Hailey Turcios CNM [address] [place] [address] Health Maintenance Due Date Last Done Comments CT Colonography 1960 FIT DNA/Cologuard 1960 FIT 1960 FOBT 1960 Sigmoidoscopy 1960 RSV Patients and Patients Aged 60 years or older (1 - Risk 50-74 years 1-dose series) 2008 Zoster Vaccines (2 of 2) 10/07/2020 08/12/2020 COVID-19 Vaccine (3 - season) 2024 06/23/2020, 04/30/2020 Influenza Vaccine (#1) 2024 , 06/10/2021, 01/08/2020, Additional history exists Diabetes: Hemoglobin A1C 10/15/2024 025, 01/15/2024, 10/04/2023, Additional history exists Alcohol/Substance Use Screening 02/28/2025 02/29/2024 SDOH Screening 02/28/2025 02/29/2024 HPV/Cotest 03/31/2025 03/31/2020 Pap Smear 03/31/2025 03/31/2020 Diabetes: Urine Protein Screening 07/15/2025 07/15/2024, 04/17/2023, 06/07/2021 Lipid Panel 07/15/2025 07/15/2024, 09/07, 02/09/2023, Additional history exists Tobacco Screening 01/10/2026 01/10/2025 Depression Screening 01/22/2026 01/22/2025, 01/23/20 25 Diabetes: Foot Exam 01/22/2026 01/22/2025, 01/22/2025, 01/22/2025, Additional history exists Mammogram 11/05/2026 11/05/2024, 10/08, 10/27/2022, Additional history exists Eye Exam 12/18/2026 12/18/2024, 12/07, 12/18/2024, Additional history exists Colonoscopy 04/15/2030 04/15/2020, 04/15/2020 [...] on patient's age to complete this topic Goals Goal Patient Goal Type Associated Problems Recent Progress Patient-Stated? Author Help patients manage their type 2 diabetes Care Plan Help patients manage their type 2 diabetes No Yenny Andrade, OD Weekly blood pressure task Care Plan Weekly blood pressure task No Yenny Andrade, OD Help patients manage their type 2 diabetes Care Plan Help patients manage their type 2 diabetes No Yenny Andrade, OD Patient has chronic kidney disease Care Plan Patient has chronic kidney disease No Yenny Andrade OD Weekly blood pressure task Care Plan Weekly blood pressure task No Yenny Andrade, OD Patient has chronic kidney disease Care [...] chronic kidney disease No Jina Royal RN Procedures Procedure Name Priority Date/Time Associated Diagnosis Comments POCT GLUCOSE Routine 01/22/2025 8:46 AM EST Type 2 diabetes mellitus with diabetic polyneuropathy, without long-term current use of insulin ([facility]) OCT, RETINA - OU - BOTH EYES Routine 12/18/2024 9:30 AM EST Epiretinal membrane (ERM) of left eye BI MAMMOGRAM SCREENING TOMOSYNTHESIS BILATERAL Routine 11/05/2024 7:31 AM EDT COMPREHENSIVE METABOLIC PANEL Routine 10/30/2024 8:33 AM EDT Type 2 diabetes mellitus with diabetic polyneuropathy, without long-term current use of insulin ([facility]) ALBUMIN, RANDOM URINE W/CREATININE Routine 07/15/2024 9:45 AM EDT Type 2 diabetes mellitus with diabetic polyneuropathy, without long-term current use of insulin ([facility]) HEMOGLOBIN A1C Routine 07/15/2024 9:45 AM EDT Type 2 diabetes mellitus with diabetic polyneuropathy, without long-term current use of insulin ([facility]) LIPID PANEL, STANDARD Routine 07/15/2024 9:45 AM EDT Type 2 diabetes mellitus with diabetic polyneuropathy, without long-term current use of insulin (CMS/HCC) HEPATITIS C AB W/REFL TO HCV RNA, QN, PCR Routine 05/11/2022 8:32 AM EDT Type 2 diabetes mellitus with diabetic polyneuropathy, without long-term current use of insulin (CMS/HCC) COLONOSCOPY Routine 04/15/2020 HPV MRNA E6/E7 Routine 03/31/2020 9:39 AM EST THINPREP PAP Routine 03/31/2020 9:39 AM EST from Last 3 Months or Most Recently Relevant to Health Maintenance Results * POCT Glucose (01/22/2025 8:46 AM EST) Glucose Blood, POC 155 60 - 200 mg/dL QC Media Lot # [id number] Lot# Expiration Date ,[id number] Blood Capillary blood specimen / Unknown 01/22/2025 8:46 AM EST Leandro Magallon MD POINT OF CARE TEST ENTER/EDIT ORDERABLES Final Result * OCT, Retina - OU - Both Eyes (12/18/2024 9:30 AM EST) Narrative Yenny Andrade, OD - 01/10/2025 1:18 PM EST Images from the original result were not included. OCT [facility] [employer] Optical Coherence Tomography Interpretation Report Measurements: OD OS Macula Thickness 242 microns 283 microns Test findings: Right eye: Normal foveal contour, no cystoid macular edema, no retinal pigment epithelium disruption, no subretinal fluid Left eye: Flattened foveal contour secondary to epiretinal membrane, no cystoid macular edema, no retinal pigment epithelium disruption, no subretinal fluid Impression and Plan: Epiretinal membrane in the left eye, stable to previous exam findings. Will monitor at her next exam. us Yenny Andrade OD OPHTH TOMOGRAPHY Final Result * BI Mammogram Screening Tomosynthesis Bilateral (11/05/2024 7:31 AM EDT) Anatomical Region Laterality Modality Breast Bilateral Mammography 11/05/2024 7:31 AM EDT Narrative 11/08/2024 5:02 PM EDT [facility] [address] [place] [address] Mammography Report Signed Patient: Rita Lema MR#: [id number] : 1960 Acct:[id number] Age/Sex: 64 / F ADM Date: 11/05/24 Loc: HO.MAMMO Attending Dr: Leandro Magallon MD Ordering Physician: Leandro Moura MD Res ults: 1Negative Date of Service: 11/05/24 Follow Up: 1 Year From Orig inal Mammogram Procedure(s): MM tomosynthesis screening BI Accession Number(s): [id number] cc: Leandro Moura MD Reason For Exam: SCREENING EXAMINATION: MM SCREENING DIGITAL BREAST TOMOSYNTHESIS, BILATERAL CLINICAL INFORMATION: Screening. Asymptomatic. COMPARISON: Mammography: Comparison is made with available priors TECHNIQUE: Digital breast mammography with tomosynthesis is performed in both the craniocaudal and mediolateral oblique views along with computer-aided detection (CAD). FINDINGS: There are scattered areas of fibroglandular density. There are no significant masses, abnormal calcifications, or other abnormalities. MM/MM tomosynthesis screening BI IMPRESSION: No mammographic evidence of malignancy. ASSESSMENT: BI-RADS Category 1: Negative RECOMMENDATION: Routine annual mammography screening. 1 year F/U This examination should not preclude the clinical evaluation of a suspicious palpable abnormality. This patient's information was entered into a reminder system with a target due date for their next mammogram. Electronically signed by: Holley Harris DO 11/08/2024 04:59 PM EDT Dictated By: Holley Harris DO Signed By: <Electronically signed by Holley Harris DO in OV> 11/08/24 1659 DD/ 0731 TD/TT: 11/05/24 0735 Sales Developer: Procedure Note Donotuseinterpreter, Image - 11/08/2024 [place] [facility] [address] [place] [address] Mammography Report Signed Patient: Rita Lema MR#: [id number] : 9Acct:[id number] Age/Sex: 64 / FADM Date: 11/05/24 Loc: HO.MAMMO Attending Dr: Leandro Magallon MD Ordering Physician: Leandro Moura ults: 1Negative Date of Service: 11/05/24Follow Up: 1 Year From Orig inal Mammogram Procedure(s): MM tomosynthesis screening BI Accession Number(s): [id number] cc: Leandro Moura MD Reason For Exam: SCREENING EXAMINATION: MM SCREENING DIGITAL BREAST TOMOSYNTHESIS, BILATERAL CLINICAL INFORMATION: Screening. Asymptomatic. COMPARISON: Mammography: Comparison is made with available priors TECHNIQUE: Digital breast mammography with tomosynthesis is performed in both the craniocaudal and mediolateral oblique views along with computer-aided detection (CAD). FINDINGS: There are scattered areas of fibroglandular density. There are no significant masses, abnormal calcifications, or other abnormalities. MM/MM tomosynthesis screening BI IMPRESSION: No mammographic evidence of malignancy. ASSESSMENT: BI-RADS Category 1: Negative RECOMMENDATION: Routine annual mammography screening. 1 year F/U This examination should not preclude the clinical evaluation of a suspicious palpable abnormality. This patient's information was entered into a reminder system with a target due date for their next mammogram. Electronically signed by: Holley Harris DO 11/08/2024 04:59 PM EDT Dictated By: Holley Harris DO Signed By: <Electronically signed by Holley Harris DO in OV> 11/08/24 1659 DD/ 0731 TD/TT: 11/05/24 0735 Sales Developer: us Leandro Magallon MD IMG BI PROCEDURES Final Result * (ABNORMAL) Comprehensive Metabolic Panel (10/30/2024 8:33 AM EDT) Sodium 141 135 - 145 mmol/L [facility] Potassium 4.4 3.3 - 5.1 mmol/L [facility] Chloride 104 96 - 108 mmol/L [facility] Carbon Dioxide 31(H) 22 - 29 mmol/L [facility] Anion Gap 10(L) 12 - 20 [facility] Urea Nitrogen (BUN) 13 9 - 16 mg/dL [facility] Creatinine, Serum 0.73 0.5 - 1.4 mg/dL [facility] Estimated Glomerular Filt Rate >60 [facility] Comment:Chronic Kidney Disea se: Estimated GFR < 60 mL/min/1.81q6Phdgns Kidney Disease: Estimated GFR < 15 mL/min/1.73m2 Glucose 110 60 - 115 mg/dL [facility] Calcium 9.6 8.4 - 10.2 mg/dL [facility] Bilirubin, Total 0.3 0.0 - 1.0 mg/dL [facility] Aspartate Amino Transferase 53(H) 5 - 31 U/L [facility] Alanine Aminotransferase 59(H) 0 - 31 U/L [facility] Total Protein 7.3 6.5 - 8.0 g/dL [facility] Albumin Level 4.1 3.5 - 5.0 g/dL [facility] Alkaline Phosphatase 68 39 - 117 U/L [facility] Blood Venous blood specimen / Unknown 10/30/2024 8:33 AM EDT 10/30/2024 2:35 PM EDT us Leandro Magallon MD LAB BLOOD ORDERABL ES Final Result [facility] [address] [place] [phone] [phone] * Albumin, Random Urine W/Creatinine (07/15/2024 9:45 AM EDT) Creatinine, Urine 55.82 mg/dL [facility] Microalbumin Urine <5.0 mg/L [facility] Microalbum Creatinine Ratio Ur TNP <30 ug/mg cr [facility] Comment:Unable to calculate albumin/creatinine ratio due to lowmicroalbumin or creatinine result. Urine (Urine, Random) 07/15/2024 9:45 AM EDT 07/15/2024 2:06 PM EDT Leandro Magallon MD LAB URINE ORDERABL ES Final Result Performing Organization Address [facility] Co de Phone Number [facility] [address] [place] [phone] * (ABNORMAL) Hemoglobin A1c (07/15/2024 9:45 AM EDT) Hemoglobin A1c 11.3(H) <6.0 % [facility] Comment:Hemoglobin A1C Refer ence Range Adults: 4.8 - 6.0 % Non diabetic: < 6.0 % Goal: < 7.0 %Additional Action Suggested: > 8.0 %Note: Hemoglobin A1c results are invalid for patients with abnormal amounts of HbF. Blood transfusions may impact the HbA1c concentration in the patient sample. Estimated Average Glucose 278 mg/dL [facility] Comment:eAG = Estimated ave rage glucose which is %A1C expressed asaverage glucose, using the formula of the [id number] Glucose study (ADAG), Diabetes Care, Vol.31,#8,Sep. 2007 Blood Venous blood specimen / Unknown 07/15/2024 9:45 AM EDT 07/15/2024 2:17 PM EDT Leandro Magallon MD LAB BLOOD ORDERABL ES Final Result Performing Organization Address [facility] Co de Phone Number [facility] [address] [place] [phone] * Lipid Panel, Standard (07/15/2024 9:45 AM EDT) Triglycerides 111 <150 mg/dL [facility] Comment:Desirable Triglyceri de: less than 150 mg/dLBorderline High Triglyceride 150-199 mg/dLHigh Triglyceride: 200-499 mg/dLVery High Triglyceride: greater than or equal to 5OO mg/dL Cholesterol 116 <200 mg/dL [facility] Comment:Desirable Cholestero l: less than 200 mg/dLBorderline High Cholesterol: 200-239 mg/dLHigh Cholesterol: greater than 239 mg/dL LDL Cholesterol Calculated 52 <100 mg/dL [facility] Comment:Desirable LDL: less than 100 mg/dLNear Optimal/Above Optimal LDL: 110- 129 mg/dLBorderline High LDL: 130-159 mg/dLHigh LDL: 160-189 mg/dLVery High LDL: greater than or equal to 190 mg/dL HDL Cholesterol 42 >40 mg/dL [facility] Comment:Desirable HDL: great er than 40 mg/dL Note: This HDL assay may give artificially low results in patients with liver disease. Blood Venous blood specimen / Unknown 07/15/2024 9:45 AM EDT 07/15/2024 2:17 PM EDT us Leandro Magallon MD LAB BLOOD ORDERABL ES Final Result [facility] [address] [place] [phone] * Hepatitis C Antibody with Reflex to HCV, RNA, Quantitative, Real-Time PCR (05/11/2022 8:32 AM EDT) Hepatitis C Antibody NON-REACT DANAE NON-REACT DANAE [facility] Index 0.02 <1.00 [facility] Comment: HCV antibody was non-reactive. There is no laboratory evidence of HCV infection. In most cases, no further action is required. However, if recent HCV exposure is suspected, a test for HCV RNA (test code 30775) is suggested. For additional information please refer to http://education.Cameo/faq/YSS45g8 (This link is being provided for informational/ educational purposes only.) Blood Venous blood specimen / Unknown 05/11/2022 8:32 AM EDT 05/11/2022 8:32 AM EDT Narrative [facility] - 05/13/2022 10:22 PM EDT FASTING:YES FASTING: YES Leandro Magallon MD LAB BLOOD ORDERABL ES Final Result [address], [place] [phone] [facility] [address] [place] [phone] * Colonoscopy (04/15/2020) Anatomical Region Laterality Modality [...] along with historic and current clinical information. Ticket Puller : SEE COMMENT [facility] Comment: ED, CT(ASCP) CT screening location: [address] [address] Interpretation/R esult: Negative for intraepithelial lesion or malignancy. [facility] LMP: NONE [facility] Prev. BX: NONE [facility] Prev. PAP: NONE [facility]IVEN [facility] SOURCE: None given [facility] Statement Of Adequacy: SEE COMMENT [facility] Comment: Satisfactory for evaluation. Endocervical/transformation zone component absent. 03/31/2020 9:39 AM EST Hailey Turcios CNM LAB PATHOLOGY ORDERABLES Final Result [facility] [address] * HPV mRNA E6/E7 (03/31/2020 9:39 AM EST) HPV nRNA E6/E7 Not Detected Not Detected [facility] Comment: Methodology: Director Of Special Events-Mediated Amplification This assay detects E6/E7 viral messenger RNA (mRNA) from 14 high-risk HPV types (16,18,31,33,35,39,45,51,52,56,58,59,66,68). The analytical performance characteristics of this assay have been determined by [employer]. The modifications have not been cleared or approved by the FDA. This assay has been validated pursuant to the CLIA regulations and is used for clinical purposes. For additional information, please refer to http://education.Cameo/DBU631t4 (This link if provided for information/ educational purposes only.) 03/31/2020 9:39 AM EST us [place] [facility] BLOOD ORDERABLES Fadumo pappas Result [facility] [address] from Last 3 Months or Most Recently Relevant to Health Maintenance Additional Health Concerns Active Problems Noted Date [...] 01/22/2025 Patient has chronic kidney disease 01/22/2025 Insurance [facility] [employer] (HMO D-SNP) [facility] STANDARD Care Teams Motor Equipment Lieutenant Relationship Specialty Start Date End Date Leandro Moura MD NPI: [id number] [place] [id number] PCP - General Internal Medicine 06/28/19
--- OUTSIDE RECORDS SUMMARY | 2025-01-22 09:42 | XMS_ITS | Encounter Summary ---
Author Organization [email or web address] Address [address] [facility] [address] [place] [address] Care Team Providers Care Telecasting Technician Name Role Phone Leandro Moura MD Primary Care Prov ider Reason for Visit * Reason Onset Date Comments Durable Medical Equipment 11/28/2023 Encounter Details Date Type Department Care Team ([facility] st Contact Info) Description 11/28/2023 Telephone [facility] [address] [place] [address] Leandro Moura MD [address] [place] [address] Durable Medical Equipment Social History Tobacco Use [...] Chair large * Telephone Encounter - Kobe Apple - 11/28/2023 3:55 PM EDT Tc from patient calling to request the following DME . Jerman Simons Bedside commode Recliner lift chair Diabetic shoes Shower Chair large documented in this encounter Plan of Treatment Upcoming Encounters Date Type Department Care Team (Late st Contact Info) Description 03/03/2025 9:30 AM EST Telemedicine [facility]S [address] [place] [address] Leandro Moura MD [address] [place] [address] 04/01/2025 9:30 AM EST Procedure Visit [facility] [address] [place] [address] Hailey Turcios, RIVER [address] [place], [place] [phone] documented as of this encounter Visit Diagnoses Not on filedocumented in this encounter Additional Health Concerns Assessment Noted Time PHQ-9 Depression Total Score: 17 024 8:56 AM EST documented as of this encounter Care Teams Telecasting Technician Relationship Specialty Start Date End Date Leandro Moura MD [address] [place] [address] PCP - General Internal Medicine 06/28/19 documented as of this encounter
--- OUTSIDE RECORDS SUMMARY | 2025-01-22 09:42 | XMS_ITS | Encounter Summary ---
Author Organization [employer] Address [address] [facility] [address] [place] [address] Care Team Providers Care Product Development Scientist Name Role Phone Leandro Moura MD Primary Care Prov ider Reason for Visit * Reason Comments Med Refill Encounter Details Date Type Department Care Team (Late Contact Info) Description 03/02/2022 Refill [facility] MEDICINE [address] [place] [address] Leandro Moura MD [address] [place], [place] [phone] Primary hypertension; Neuropathy Social History Tobacco Use [...] Description 03/03/2025 9:30 AM EST Telemedicine [facility] P[facility]S [address] [place], [place] [phone] Leandro Moura MD [address] [place], [place] [phone] 04/01/2025 9:30 AM EST Procedure Visit [facility] MEDICINE [address] [place] [address] Hailey Turcios CNM [address] [place] [address] documented as of this encounter Visit Diagnoses Diagnosis Primary hypertension Unspecified essential hypertension Neuropathy Mononeuritis of unspecified site documented in this encounter Care Teams Product Development Scientist Relationship Specialty Start Date End Date Leandro Moura MD [address] [place] [id number] PCP - General Internal Medicine 06/28/19 documented as of this encounter
[2025-01-22 15:57] LABS: Alanine Aminotransferase 64 U/L (0-31); Albumin Level 4.5 g/dL (3.5-5.0); Alkaline Phosphatase 72 U/L (39-117); Anion Gap 15 (12-20); Aspartate Amino Transferase 53 U/L (5-31); Blood Urea Nitrogen 15 mg/dL (9-16); Calcium 10.0 mg/dL (8.4-10.2); Carbon Dioxide 26 mmol/L (22-29); Chloride 102 mmol/L (96-108); Cholesterol 117 mg/dL (<200); Estimated Glomerular Filt Rate > 60; HDL Cholesterol 45 mg/dL (>40); Potassium 4.8 mmol/L (3.3-5.1); Sodium 138 mmol/L (135-145); Total Protein 8.0 g/dL (6.5-8.0); Triglycerides 119 mg/dL (<150)
== END 2025-01-22 09:00 | disposition home or self-care (01) ==
LOC: HO.CHCLDS 08:59
PROVIDERS: Visit Provider Internal Medicine
DX: E11.42 Type 2 diabetes mellitus with diabetic polyneuropathy (principal)
CPT/HCPCS: 36415; 80053; 80061; 83036